=== PATIENT | male | born 1940 | race Caucasian/White ===

== ENCOUNTER 2019-07-23 13:09 | Outpatient (CLI) | payer MEDICARE, OTHER, SELFPAY ==
--- NOTE | 2019-07-23 13:20 | XR_ITS ---
WS: [id number] LATERAL LUMBAR SPINE: 3 view. Lateral radiographs are performed in upright neutral, flexion and extension to the patient's toleranc e. HISTORY: Spondylolisthesis. COMPARISON: 02/03/2019. Increase in lumbar lordosis. 2 to 3 mm retrolisthesis of L1-L4. During extension L3 moves posterior t o L4 by 4.5 mm. Otherwise the vertebral bodies are negative for instability. Patient has a known L1 compression fracture. Fracture has slightly progressed since 02/03/2019. Superi or inferior diameter of the anterior L1 vertebral body has decreased from 2.5 to 1.9 cm. No retropuls ion. Moderate atherosclerosis abdominal aorta. XR/XR lumbar spine f/e only [id number] IMPRESSION: 1. Increase in lumbar lordosis. 2. Mild extension instability at the L3 level. The retrolisthesis of L3 increa ses from 3 mm to 4.5 mm.
== END 2019-07-23 13:10 | disposition home or self-care (01) ==
LOC: WPI 13:14
PROVIDERS: Family Provider Physician Assistant; PCP Physician Assistant; Referring Provider Physician Assistant; Visit Provider Nurse Practitioner
DX: M43.17 Spondylolisthesis, lumbosacral region (principal); M53.2X6 Spinal instabilities, lumbar region; M40.46 Postural lordosis, lumbar region
CPT/HCPCS: 72120

== ENCOUNTER 2019-10-30 18:20 | Emergency (ER) | payer MEDICARE, OTHER, SELFPAY ==
[2019-10-30 18:29] VITALS: BP 172/66; PULSE 58; RESP 18; TEMP 36.1; O2SAT 99; BMI 25.8
--- NOTE | 2019-10-30 18:44 | CTR_ITS ---
PROCEDURE INFORMATION: Exam: CT Abdomen And Pelvis With Contrast Exam date and time: 10/30/2019 8:14 PM Age: 78 years old Clinical indication: Nausea and vomiting; Abdominal pain; Generalized; Additional info: Abd pain TECHNIQUE: Imaging protocol: Computed tomography of the abdomen and pelvis with intravenous contrast. Total DLP: 732.36 mGy-cm Radiation optimization: All CT scans at this facility use at least one of these dose optimization techniques: automated exposure control; mA and/or kV adjustment per patient size (includes targeted exams where dose is matched to clinical indication); or iterative reconstruction. Contrast material: OMNI 300; Contrast volume: 95 ml; Contrast route: 18G; COMPARISON: CT abdomen pelvis w con* [id number] 12/18/2017 2:40 PM FINDINGS: Lungs: There is calcified granuloma at the right lung base. Mediastinum: There is a small hiatal hernia. Liver: There is no focal abnormality within the liver. Gallbladder and bile ducts: Multiple calcified gallstones are present. Pancreas: The pancreas is normal. Spleen: There is a benign-appearing 3.8 cm sized cyst in the anterior aspect of the spleen. Adrenals: The adrenal glands are normal. Kidneys and ureters: There are several small benign-appearing cysts in the right kidney measuring up to 1 cm. There are some benign-appearing cysts cysts in the left kidney measuring up to 1.9 cm. There is no evidence of hydronephrosis. There is no evidence of renal or ureteral calcifications. Stomach and bowel: There is a left inguinal hernia containing only fatModerate diverticulosis is present in the distal colon. There is no evidence of colitis/diverticulitis. There is no evidence of intestinal obstruction. Appendix: A normal appendix is identified. Intraperitoneal space: Unremarkable. No free air. No significant fluid collection. Vasculature: The aorta demonstrates moderate atherosclerotic calcification. There is focal stenosis in the distal abdominal aorta with narrowing of the diameter by approximately 50%. There is no evidence of an abdominal aortic aneurysm. There is no evidence of dissection, leak, rupture, or other acute vascular pathology. Lymph nodes: Unremarkable. No enlarged lymph nodes. Bladder: Unremarkable as visualized. Reproductive: The prostate demonstrates moderate nonspecific enlargement. The seminal vesicles are normal. Bones/joints: There is 50% loss of height of the L1 vertebral body with what appears to be a chronic osteoporotic compression fracture of uncertain age. This is new compared with 12/18/2017. Soft tissues: Unremarkable. CT/CT abdomen pelvis w con* [id number] IMPRESSION: 1. Cholelithiasis 2. Atherosclerotic vascular disease 3. Splenic cyst and bilateral kidney cysts. 4. Small hiatus hernia. 5. Left inguinal hernia. 6. L1 compression fracture of uncertain age but probably old. 7. No acute finding COMMENTS: Consistent with the [employer]'s Incidental Findings Committee white paper (J Am Derek Radiol 2018): Any incidental cystic renal lesion classified in this report as too small to characterize or simple appearing is likely a benign cyst. No follow-up imaging is recommended for these lesions per consensus recommendations based on imaging criteria. Radiation Dose CTDIVOL = (mGy): DLP = 732.36 (mGy-cm)
--- NOTE | 2019-10-30 18:55 | W.ED.ABDPA2 ---
HPI - Abdominal Pain General: Chief Complaint: Abdominal Pain Stated Complaint: abd pain Time Seen by Provider: 10/30/19 18:43 History of Present Illness: MD elicited complaint: abdominal pain Pertinent past history: constipation Onset (ago): day(s) (3) Pain Consistency: constant Location: Diffuse Quality: cramping, aching and fullness Radiation: none Migration to: no migration Relieving factors: vomiting Associated Symptoms: Reports bloating, nausea and vomiting; Denies chills, diarrhea, dysuria, fever(s) and hematuria Review of Systems Const: Denies: fever or chills Eyes: Denies: change in vision or blurry vision ENMT: Denies: painful swallowing, swelling of lips/tongue or Change in hearing Card: Denies: chest pain, palpitations or edema Resp: Denies: shortness of breath, productive cough, non-productive cough or wheezing GI: Reports: nausea, vomiting and bloating; Denies: diarrhea : Denies: difficulty urinating, painful urination or blood in urine Musc: Denies: back pain, redness or joint warmth Skin/Breast: Denies: rash, itching or redness Neuro: Reports: headache; Denies: dizziness, vertigo or confusion Psych: Denies: anxiety PFSH ED PFSH: Social History Smoking and tobacco status: former smoker Physical Exam Const: GENERAL APPEARANCE: well developed ORIENTATION/CONSCIOUSNESS: Yes oriented to person, Yes oriented to place and Yes oriented to time HENMT: COMMON NORMALS: normocephalic, external ears normal and external nose normal HEAD & SCALP: normocephalic; no scalp tenderness FACE & SINUS: normal facial exam NOSE: external nose normal and no nasal discharge EXTERNAL EAR: Yes external ears normal Eye: COMMON NORMALS: PERRL, EOMs intact bilaterally and conjunctivae normal EYELID: eyelids normal CONJUNCTIVA: Yes conjunctivae normal PUPIL: Yes PERRL Neck/C-Spine: GENERAL: No tracheal deviation Chest: COMMONS NORMALS: inspection of chest normal CHEST: No tenderness Resp: COMMON NORMALS: clear to auscultation bilaterally EFFORT & INSPECTION: No tachypneic, No respiratory distress, No retractions, No uses accessory muscles and No tracheal deviation AUSCULTATION: clear to auscultation bilaterally, no rhonchi, no wheezes and lung sounds not diminished Cardio: COMMON NORMALS: regular rate and regular rhythm RATE: regular rate RHYTHM: regular rhythm HEART SOUNDS: no murmurs PERIPHERAL PULSES: radial pulses present GI: INSPECTION: Yes abdominal distension AUSCULTATION: No hyperactive bowel sounds and Yes hypoactive bowel sounds PALPATION: Yes tender (epigastric), No guarding and No rigid PERCUSSION: no dullness to percussion and no tympanic to percussion : COMMON NORMALS: Yes no CVA tenderness BLADDER/KIDNEY EXAM: Yes no CVA tenderness Back/Pelvis: COMMON NORMALS: no CVA tenderness Neuro: SENSORIUM/ORIENTATION: Yes oriented to person, Yes oriented to place and Yes oriented to time Psych: COMMON NORMALS: mental status grossly normal Skin: COMMON NORMALS: no rashes or lesions noted GENERAL SKIN EXAM: no rashes or lesions noted Course ED course: 78-year-old male sent over from urgent care because of concern for possible bowel obstruction. He has had generalized belly pain for 3 days. Seems to be intermittent. Laboratory is benign. Urinalysis is negative, save some hematuria. His abdominal CT shows cholelithiasis without cholecystitis. There is no diverticulitis, bowel obstruction, other acute finding. He will be allowed home with a bowel prep, nausea medication, and a PPI. Vital Signs: Vital signs: Vital Signs Temperature 96.9 F L 10/30/19 18:29 Pulse Rate 64 10/30/19 21:40 Respiratory Rate 16 10/30/19 21:40 Blood Pressure 185/82 10/30/19 21:40 Pulse Oximetry 97 10/30/19 21:40 MDM - Abdominal Pain Lab Data: Labs: Lab Results 10/30/19 10/30/19 10/30/19 Range/Units 18:55 18:55 19:35 WBC 7.1 (4.0-10.0) 10^3/ uL RBC 3.98 L (4.1-5.3) 10^6/u L Hgb 12.5 (11.7-16.6) g/dL Hct 39.2 L (42.0-52.0) % MCV 98.5 H (80-94) fL MCH 31.4 (28.0-34.0) pg MCHC 31.9 (30.0-36.0) g/dL RDW 14.5 (12.1-15.1) % Plt Count 207 (130-400) 10^3/c mm MPV 10.2 (7.4-10.4) fL Neut % (Auto) 70.7 % Lymph % (Auto) 18.7 % [place] % (Auto) 9.4 % Eos % (Auto) 0.8 % Baso % (Auto) 0.3 % Neut # (Auto) 5.0 (1.8-7.7) 10^3/u L Lymph # (Auto) 1.3 (0.8-4.8) 10^3/u L [place] # (Auto) 0.7 (0.2-0.9) 10^3/u L Eos # (Auto) 0.1 (0.0-0.8) 10^3/u L Baso # (Auto) 0.0 (0.0-0.1) 10^3/u L Nucleated RBC % (a uto) 0 % Nucleated RBCs # 0.0 /100WBC Sodium 138 (136-145) mmol/L Potassium 4.2 (3.5-5.1) mmol/L Chloride 101 (98-107) mmol/L Carbon Dioxide 26 (22-29) mmol/L Anion Gap 15.2 (5-19) BUN 11 (8-23) mg/dL Creatinine 1.0 (0.7-1.2) mg/dL Glucose 136 H (65-115) mg/dL Calculated Osmolal ity 284 L (285-295) mOsm/k g Calcium 9.6 (8.5-10.5) mg/dL Total Bilirubin 0.5 (0.15-1.2) mg/dL AST 15 (0-40) U/L ALT 13 (0-41) U/L Alkaline Phosphata se 57 (40-130) IU/L C-Reactive Protein 19.1 H (0.0-4.9) mg/L Total Protein 7.0 (6.6-8.7) g/dL Albumin 4.2 (3.5-5.2) g/dL Globulin 2.8 (1.3-4.6) g/dL Lipase 16 (13-60) U/L Urine Color Yellow (Yellow) Urine Appearance Clear (CLEAR) Urine pH 5 (5-7) Ur Specific Gravit y 1.020 (1.005-1.030) Urine Protein 1+ H (Negative) Urine Glucose (UA) Norm (Normal) Urine Ketones Negative (Negative) Urine Blood 2+ H (Negative) Urine Nitrate Negative (Negative) Urine Bilirubin Neg (NEGATIVE) Urine Urobilinogen Norm (Negative) mg/dL Ur Leukocyte Leny ase Negative (Negative) Urine RBC 5-10 H (0-2) /hpf Urine WBC None (0-5) /hpf Ur Squamous Epith Cells None (0-5) Urine Bacteria 1+ H (NONE) Discharge Plan Discharge Patient Disposition: Home, Self-Care Clinical Impression: Abdominal pain Qualifiers: Abdominal location: generalized Qualified Code(s): R10.84 - Generalized abdominal pain Constipation Qualifiers: Constipation type: unspecified constipation type Qualified Code(s): K59.00 - Constipation, unspecified Condition: Stable Prescriptions: New Prevacid 30 mg capsule,delayed release(DR/EC) 30 mg PO DAILY 28 Days Qty: 30 RF: 0 Zofran 4 mg tablet 4 mg PO Q6H PRN (Reason: nausea and vomiting) Qty: 10 RF: 0 No Action fenofibrate nanocrystallized 48 mg tablet 48 mg PO DAILY Qty: 90 RF: 3 clopidogrel 75 mg tablet 75 mg PO DAILY Qty: 90 RF: 3 Discharge Orders: Discharge Order (Routine); Ordered 10/30/19 Ordered By: Phill Sullivan Referrals: Naima Logan PA [Primary Care Provider] - 4-7 days Discharge Diet: Advance as tolerated Discharge Activity: Increase activity as tolerated Patient Instructions: Cholecystitis (ED), Abdominal Pain (ED) Activity Restrictions/Additional Instructions: Return for fever greater than 100, vomiting liquids or medications, worsening pain despite treatment, other concerning symptoms. Discharge Date/Time: 10/30/19 21:41 Coding Level of Care Code ED Cheese Pancake Roller for Chg Fwd Exam Comprehensive
--- NOTE | 2019-10-30 19:09 | PC.NURSE ---
Report given to PABLO Rivera.
[2019-10-30] MEDS: sodium chloride 0.9% 1,000 ML 999 ML IV (19:12)
[2019-10-30 19:15] LABS: Basophils % 0.3 %; Eosinophils # 0.1 10^3/uL (0.0-0.8); Eosinophils % 0.8 %; Hematocrit 39.2 % (42.0-52.0); Hemoglobin 12.5 g/dL (11.7-16.6); Lymphocytes # 1.3 10^3/uL (0.8-4.8); Lymphocytes % 18.7 %; Mean Corpuscular HGB Conc 31.9 g/dL (30.0-36.0); Mean Corpuscular Hemoglobin 31.4 pg (28.0-34.0); Mean Corpuscular Volume 98.5 fL (80-94); Mean Platelet Volume 10.2 fL (7.4-10.4); Monocytes # 0.7 10^3/uL (0.2-0.9); Monocytes % 9.4 %; Neutrophils % 70.7 %; Nucleated Red Blood Cells % 0 %; Platelet Count 207 10^3/cmm (130-400); Red Blood Count 3.98 10^6/uL (4.1-5.3); Red Cell Distribution Width 14.5 % (12.1-15.1); White Blood Count 7.1 10^3/uL (4.0-10.0)
[2019-10-30 19:48] LABS: Add Urine Microscopic? YES; Bilirubin Urine Neg (NEGATIVE); Blood Urine 2+ (Negative); Glucose Urine UA Norm (Normal); Ketones Urine Negative (Negative); Leukocyte Esterase Urine Negative (Negative); Nitrate Urine Negative (Negative); Protein Urine 1+ (Negative); Urine Appearance Clear (CLEAR); Urine Color Yellow (Yellow); Urobilinogen Urine Norm (Negative); pH Urine 5 (5-7)
[2019-10-30 19:59] LABS: Alanine Aminotransferase 13 U/L (0-41); Albumin Level 4.2 g/dL (3.5-5.2); Alkaline Phosphatase 57 IU/L (40-130); Anion Gap 15.2 (5-19); Blood Urea Nitrogen 11 mg/dL (8-23); C Reactive Protein 19.1 mg/L (0.0-4.9); Calcium 9.6 mg/dL (8.5-10.5); Carbon Dioxide 26 mmol/L (22-29); Chloride 101 mmol/L (98-107); Globulin 2.8 g/dL (1.3-4.6); Glucose 136 mg/dL (65-115); Lipase 16 U/L (13-60); Osmolality Calculated 284 mOsm/kg (285-295); Potassium 4.2 mmol/L (3.5-5.1); Sodium 138 mmol/L (136-145); Total Bilirubin 0.5 mg/dL (0.15-1.2)
[2019-10-30 20:03] LABS: Add Urine Culture? No; Bacteria Urine 1+
[2019-10-30 20:25] LABS: Aspartate Amino Transferase 15 U/L (0-40)
[2019-10-30] MEDS: iohexol 300 mg/mL 100 mL Btl IV (20:39)
[2019-10-30 21:17] VITALS: BP 172/74; PULSE 68; RESP 16; O2SAT 97
[2019-10-30] MEDS: magnesium hydroxide 30 mL UDC PO (21:28)
[2019-10-30] MEDS: mineral oil 30 mL UDC 15 ML PO (21:28)
[2019-10-30] MEDS: lactulose oral liq 20 gm/30 mL UDC PO (21:28)
[2019-10-30 21:40] VITALS: BP 185/82; PULSE 64; RESP 16; O2SAT 97
== END 2019-10-30 21:41 | disposition home or self-care (01) ==
PROVIDERS: Emergency Provider Emergency Medicine; Family Provider Physician Assistant; PCP Physician Assistant
DX: R10.84 Generalized abdominal pain (principal); K59.00 Constipation, unspecified; Z87.891 Personal history of nicotine dependence
CPT/HCPCS: 12345; 74177; 80053; 81001; 83690; 85025; 86140; 96360; 96361; 99283; A9270; J7030; Q9967

== ENCOUNTER 2019-11-20 09:07 | Outpatient (CLI) | payer MEDICARE, OTHER, SELFPAY ==
--- NOTE | 2019-11-20 | MR_ITS ---
WS: [id number] MRI LUMBAR SPINE NONCONTRAST TECHNIQUE: Sagittal T1, T2 and STIR imaging. Axial T1 and T2 imaging. CLINICAL INFORMATION: WEDGE COMPRESSION, FX OF LUMBAR DISK, INITIAL ENCOUNTER COMPARISON: MRI July 01, 2019 FINDINGS: Mild lumbar curve. No acute compression. Chronic appearing anterior wedging at L1 is unchanged since . Loss of approximately 50% vertebral body height is stable. No retropulsion. Stable grade 1 anterolisthesis L5 on S1. L1-L2: Normal. L2-L3: Mild annular bulging. Slight effacement of ventral thecal sac. Mild facet arthropathy. Foramen are patent. L3-L4: Mild annular bulging. Slight narrowing of the subarticular recess bilaterally. Mild facet arth ropathy. Spinal canal is patent. Tiny right foraminal protrusion with mild right foraminal narrowing. Left foramen is patent. L4-L5: Mild disc bulging with osteophytic ridging. Moderate central canal stenosis. Impingement on th e traversing L5 nerve roots bilaterally. Moderate facet arthropathy. Mild to moderate right and no si gnificant left foraminal narrowing. L5-S1: Grade 1 anterolisthesis. Mild disc bulging with slight effacement of ventral thecal sac. Impin gement traversing right S1 nerve root. Mild right greater than left foraminal narrowing. Moderate fac et arthropathy. Mild edema in the L4-L5 and L5-S1 facets likely degenerative MR/MR lumbar spine wo con* [id number] IMPRESSION: 1. Mild lumbar curve. Stable compression of the L1 vertebral body with anterio r wedging is unchanged. 2. Moderate central canal stenosis L4-5 due to disc bulging with facet arthrop athy and ligament flavum hypertrophy. Impingement on the traversing L5 nerve ro ots right greater than left. 3. Mild to moderate right L4-5 foraminal narrowing. 4. Tiny right foraminal protrusion L3-4 with mild right foraminal narrowing. 5. Grade 1 anterolisthesis L5 on S1 is stable with impingement on the traversi ng right greater than left S1 nerve roots. Moderate facet arthropathy. 6. No significant interval changes since 2019.
== END 2019-11-20 09:08 | disposition home or self-care (01) ==
LOC: RADWPI 09:13
PROVIDERS: Family Provider Physician Assistant; PCP Physician Assistant; Visit Provider Anesthesiology Pain Medicine
DX: S32.010A Wedge compression fracture of first lumbar vertebra, initial encounter for closed fracture (principal); X58.XXXA Exposure to other specified factors, initial encounter; M48.061 Spinal stenosis, lumbar region without neurogenic claudication; M47.816 Spondylosis without myelopathy or radiculopathy, lumbar region; M51.26 Other intervertebral disc displacement, lumbar region
CPT/HCPCS: 72148

== ENCOUNTER → 2019-12-31 09:34 | Outpatient (BNVA) | payer MEDICARE, OTHER, SELFPAY | PROVIDERS: Family Provider Physician Assistant; PCP Physician Assistant; Visit Provider Urology | DX: R97.20 Elevated prostate specific antigen [PSA] (principal); N40.0 Benign prostatic hyperplasia without lower urinary tract symptoms | CPT/HCPCS: 81001; 84153 ==

== ENCOUNTER 2020-01-27 08:26 | Outpatient (CLI) | payer MEDICARE, OTHER, SELFPAY ==
--- NOTE | 2020-01-27 08:47 | MR_ITS ---
WS: [id number] MRI/MRCP OF THE ABDOMEN WITHOUT GADOLINIUM ENHANCEMENT TECHNIQUE: Thin and thick slab MRCP, Axial T2, Coronal MRCP, Axial Dual Echo, and Axial 2-D Fiesta imaging was obtained. Coronal 2-D Fiesta imaging. CLINICAL INFORMATION: ELEVATED LFT'S COMPARISON: CT abdomen pelvis October 30, 2019 FINDINGS: Cholelithiasis. No gallbladder wall thickening or pericholecystic fluid. Normal common bile duct. No evidence of choledocholithiasis. Common bile duct tapers normally to the pancreatic head. Normal visu alized pancreas and pancreatic head. Stable renal cysts. Stable splenic cyst. Small hiatal hernia. MR/MR MRCP [id number] Impression: 1. Liver is normal in appearance. No intrahepatic biliary ductal dilatation. 2. Gallbladder is contracted with extensive cholelithiasis. No gallbladder wal l thickening or pericholecystic fluid. 3. Fatty atrophy of the pancreas. 4. Common bile duct appears normal with normal tapering distally. No evidence of choledocholithiasis. 5. Stable bilateral renal cysts. No hydronephrosis. 6. Stable splenic cyst in the anterior spleen measuring 3.2 CCM. 7. Small esophageal hiatal hernia. 8. No abdominal lymphadenopathy.
== END 2020-01-27 08:27 | disposition home or self-care (01) ==
LOC: RADWPI 08:32
PROVIDERS: Family Provider Physician Assistant; PCP Physician Assistant; Visit Provider Physician Assistant
DX: R94.5 Abnormal results of liver function studies (principal); K44.9 Diaphragmatic hernia without obstruction or gangrene; D73.4 Cyst of spleen; Q61.02 Congenital multiple renal cysts; K86.89 Other specified diseases of pancreas
CPT/HCPCS: 74181

== ENCOUNTER 2020-06-23 12:35 | Outpatient (CLI) | payer MEDICARE, OTHER, SELFPAY ==
--- NOTE | 2020-06-23 12:45 | USCV_ITS ---
Ck Marcus Age: 79 Gender: M : 1940 Exam Date: 06/23/2020 12:52 Ordering Phys: Ronit Mortensen MD ([email or web address]) Technologist: Erin Glover Exam Location: [facility] [place] Indication: STENOSIS Risk Factors: Previous Vascular Surgery: Right Brachial BP: / Left Brachial BP: / Right Left Velocity (cm/s) Spectral Plaque Velocity (cm/s) Spectral Plaque Syst/Diast Broadening Syst/Diast Broadening 94.80/ 13.20 Prox CCA 92.60 / 14.30 71.70/ 16.50 Mid CCA 81.60 / 14.30 67.30/ 14.30 Distal CCA 87.10 / 13.20 110.30/22.10 Prox ICA 111.40/ 22.10 125.70/26.50 Mid ICA 102.50/ 22.10 129.00/32.00 Distal ICA 86.00 / 24.30 111.40 ECA 163.20 1.80 ICA/CCA 1.36 Antegrade Vertebral Antegrade 67.30/ 16.50 cm/s 45.10/ 8.50 cm/s Tri Subclavian FINDINGS Moderate heterogeneous plaques bilaterally at the bifurcation and proximal internal carotid artery Intimal thickening in the common carotid arteries bilaterally Antegrade flow in the vertebral arteries bilaterally CONCLUSIONS Moderate heterogeneous plaques bilaterally at the bifurcation and proximal internal carotid arteries suggestive of 16 to 49% stenosis, Intimal thickening in the common carotid arteries bilaterally. Compared to the study from 07/01/2019, there may not be a significant change Dr Ronit Mortensen MD [facility] (Electronically Signed) Final Date: 24 June 2020 19:45 S
== END 2020-06-23 12:36 | disposition home or self-care (01) ==
LOC: RAD 12:37
PROVIDERS: PCP Physician Assistant; Visit Provider Internal Medicine Cardiovascular Disease
DX: I65.23 Occlusion and stenosis of bilateral carotid arteries (principal)
CPT/HCPCS: 93880

== ENCOUNTER → 2020-06-29 14:43 | Outpatient (BNVA) | payer MEDICARE, OTHER, SELFPAY | PROVIDERS: PCP Physician Assistant; Visit Provider Urology | DX: N40.0 Benign prostatic hyperplasia without lower urinary tract symptoms (principal); R97.20 Elevated prostate specific antigen [PSA]; N52.1 Erectile dysfunction due to diseases classified elsewhere; I25.118 Atherosclerotic heart disease of native coronary artery with other forms of angina pectoris; Z80.42 Family history of malignant neoplasm of prostate | CPT/HCPCS: 81003; 84153 ==

== ENCOUNTER → 2020-11-29 14:41 | Outpatient (BNVA) | payer MEDICARE, OTHER, SELFPAY | PROVIDERS: PCP Physician Assistant; Visit Provider Internal Medicine Cardiovascular Disease | DX: I65.23 Occlusion and stenosis of bilateral carotid arteries (principal); R06.02 Shortness of breath; R25.2 Cramp and spasm; E78.5 Hyperlipidemia, unspecified | CPT/HCPCS: 80048; 83735 ==

== ENCOUNTER → 2021-01-26 13:27 | Outpatient (BNVA) | payer MEDICARE, OTHER, SELFPAY | PROVIDERS: PCP Physician Assistant; Visit Provider Internal Medicine Cardiovascular Disease | DX: E78.5 Hyperlipidemia, unspecified (principal) | CPT/HCPCS: 80061; 80076 ==

== ENCOUNTER 2021-04-18 14:44 | Outpatient (CLI) | payer OTHER, SELFPAY ==
--- NOTE | 2021-04-18 14:52 | US_ITS ---
WS: [id number] RENAL ULTRASOUND HISTORY: CKD [id number] COMPARISON: None available. TECHNIQUE: 2-D and color Doppler imaging of the kidney submitted. Right kidney: 11.1 cm x 6.0 cm x 5.1 cm. Normal echogenicity with no hydronephrosis or mass. Simple cyst superior pole measures 1.4 x 1.2 x 0. 9 cm. Left kidney: 10.9 cm x 5.3 cm x 4.3 cm. Normal echogenicity with no hydronephrosis or mass. Simple cyst mid LEFT kidney measures 1.3 x 1.5 x 1.9 cm. Aorta: Normal. Urinary Bladder: Moderately well distended urinary bladder. Prostate gland is enlarged encroaching in to the bladder. There is wall thickening along the posterior bladder where the prostate gland encroac hes. US/US renal BI* [id number] IMPRESSION: 1. Bilateral renal cysts. No obstruction or solid mass. 2. Prostate gland enlargement encroaching into the urinary bladder with mild w all thickening.
== END 2021-04-18 14:45 | disposition home or self-care (01) ==
LOC: US 14:47
PROVIDERS: PCP Physician Assistant; Visit Provider Registered Nurse
DX: N18.32 Chronic kidney disease, stage 3b (principal); Q61.02 Congenital multiple renal cysts; N40.0 Benign prostatic hyperplasia without lower urinary tract symptoms
CPT/HCPCS: 76770

== ENCOUNTER → 2021-05-25 16:10 | Outpatient (BNVA) | payer MEDICARE, OTHER, SELFPAY | PROVIDERS: PCP Physician Assistant; Visit Provider Internal Medicine Cardiovascular Disease | DX: I65.23 Occlusion and stenosis of bilateral carotid arteries (principal); R06.02 Shortness of breath; R25.2 Cramp and spasm; E78.5 Hyperlipidemia, unspecified; R60.9 Edema, unspecified | CPT/HCPCS: 80048 ==

== ENCOUNTER → 2021-06-28 14:24 | Outpatient (BNVA) | payer MEDICARE, OTHER, SELFPAY | PROVIDERS: PCP Physician Assistant; Visit Provider Urology | DX: R97.20 Elevated prostate specific antigen [PSA] (principal); N52.1 Erectile dysfunction due to diseases classified elsewhere | CPT/HCPCS: 81003; 84153 ==

== ENCOUNTER → 2021-07-31 09:00 | Outpatient (BNVA) | payer MEDICARE, OTHER, SELFPAY | PROVIDERS: PCP Physician Assistant; Visit Provider Internal Medicine Cardiovascular Disease | DX: E78.5 Hyperlipidemia, unspecified (principal); I10 Essential (primary) hypertension; I25.118 Atherosclerotic heart disease of native coronary artery with other forms of angina pectoris; R97.20 Elevated prostate specific antigen [PSA] | CPT/HCPCS: 80061; 80076 ==

== ENCOUNTER 2021-08-10 09:05 | Outpatient (CLI) | payer MEDICARE, OTHER, SELFPAY ==
[2021-08-10 09:36] LABS: Add Urine Microscopic? NO; Charge for UA Resulting for Rev
[2021-08-10 09:57] LABS: Alanine Aminotransferase 12 U/L (0-41); Albumin Level 4.3 g/dL (3.5-5.2); Alkaline Phosphatase 44 IU/L (40-130); Anion Gap 17.9 (5-19); Aspartate Amino Transferase 17 U/L (0-40); Blood Urea Nitrogen 37 mg/dL (8-23); Calcium 9.5 mg/dL (8.5-10.5); Carbon Dioxide 20 mmol/L (22-29); Chloride 106 mmol/L (98-107); Glucose 112 mg/dL (65-115); Osmolality Calculated 297 mOsm/kg (285-295); Potassium 4.9 mmol/L (3.5-5.1); Sodium 139 mmol/L (136-145); Total Bilirubin 0.3 mg/dL (0.15-1.2); Total Protein 6.3 g/dL (6.6-8.7)
[2021-08-10 10:11] LABS: Bilirubin Urine Neg (Negative); Blood Urine Neg (Negative); Glucose Urine UA Norm (Normal); Ketones Urine Negative (Negative); Leukocyte Esterase Urine Negative (Negative); Nitrate Urine Negative (Negative); Protein Urine Neg (Negative); Specific Gravity, Urine 1.005 (1.005-1.030); Urine Appearance Clear (CLEAR); Urine Color Straw (Yellow); Urobilinogen Urine Norm (Negative); pH Urine 5 (5-7)
== END 2021-08-10 09:06 | disposition home or self-care (01) ==
LOC: LAB 09:14
PROVIDERS: PCP Physician Assistant; Visit Provider Chiropractor
DX: E11.9 Type 2 diabetes mellitus without complications (principal)
CPT/HCPCS: 80053; 81003

== ENCOUNTER 2021-09-18 15:44 | Outpatient (CLI) | payer MEDICARE, OTHER, SELFPAY ==
[2021-09-18 16:42] LABS: Basophils % 0.5 %; Eosinophils # 0.1 10^3/uL (0.0-0.8); Eosinophils % 1.4 %; Hematocrit 37.3 % (42.0-52.0); Hemoglobin 12.1 g/dL (11.7-16.6); Lymphocytes # 1.2 10^3/uL (0.8-4.8); Lymphocytes % 20.7 %; Mean Corpuscular HGB Conc 32.4 g/dL (30.0-36.0); Mean Corpuscular Volume 101.6 fl (80-94); Mean Platelet Volume 10.7 fL (7.4-10.4); Monocytes # 0.5 10^3/uL (0.2-0.9); Monocytes % 8.5 %; Neutrophils # 3.81 10^3/uL (1.8-7.7); Neutrophils % 68.7 %; Nucleated Red Blood Cells % 0 %; Platelet Count 212 10^3/cmm (130-400); Red Blood Count 3.67 10^6/uL (4.1-5.3); White Blood Count 5.6 10^3/uL (4.0-10.0)
[2021-09-18 17:17] LABS: Creatinine Urine, Random 77 mg/dL (39-259); Microalbum Creatinine Ratio Ur 13 mg/dL (0-20); Microalbumin Random Urine 1 ug/dL (0-20)
[2021-09-18 17:18] LABS: Albumin Level 4.5 g/dL (3.5-5.2); Blood Urea Nitrogen 47 mg/dL (8-23); Calcium 9.7 mg/dL (8.5-10.5); Carbon Dioxide 23 mmol/L (22-29); Chloride 103 mmol/L (98-107); Glucose 101 mg/dL (65-115); Phosphorus 3.3 mg/dL (2.5-4.5); Sodium 137 mmol/L (136-145)
[2021-09-18 17:19] LABS: Calcium 9.7 mg/dL (8.5-10.5)
[2021-09-18 17:21] LABS: Parathyroid Hormone 26.4 pg/mL (15-65)
[2021-09-18 17:29] LABS: 25 Hydroxy Vitamin D 53 ng/mL (30-100)
== END 2021-09-18 15:45 | disposition home or self-care (01) ==
LOC: LAB 15:51
PROVIDERS: PCP Physician Assistant; Visit Provider Internal Medicine Nephrology
DX: N18.32 Chronic kidney disease, stage 3b (principal)
CPT/HCPCS: 80069; 82044; 82306; 82310; 83970; 85025

== ENCOUNTER → 2021-11-23 13:39 | Outpatient (BNVA) | payer MEDICARE, OTHER, SELFPAY | PROVIDERS: PCP Physician Assistant; Visit Provider Internal Medicine Cardiovascular Disease | DX: I25.118 Atherosclerotic heart disease of native coronary artery with other forms of angina pectoris (principal); I10 Essential (primary) hypertension; R60.9 Edema, unspecified; I65.23 Occlusion and stenosis of bilateral carotid arteries; E78.5 Hyperlipidemia, unspecified; Z87.891 Personal history of nicotine dependence | CPT/HCPCS: 99214 ==

== ENCOUNTER → 2021-12-20 14:07 | Outpatient (BNVA) | payer MEDICARE, OTHER, SELFPAY | PROVIDERS: PCP Physician Assistant; Visit Provider Internal Medicine Cardiovascular Disease | DX: I25.118 Atherosclerotic heart disease of native coronary artery with other forms of angina pectoris (principal); R53.83 Other fatigue; I65.23 Occlusion and stenosis of bilateral carotid arteries; E78.5 Hyperlipidemia, unspecified; I10 Essential (primary) hypertension; Z87.891 Personal history of nicotine dependence | CPT/HCPCS: 99214 ==

== ENCOUNTER 2021-12-25 14:23 | Outpatient (CLI) | payer MEDICARE, OTHER, SELFPAY ==
[2021-12-25 15:51] LABS: Anion Gap 16.5 (5-19); Blood Urea Nitrogen 30 mg/dL (8-23); Calcium 8.8 mg/dL (8.5-10.5); Carbon Dioxide 22 mmol/L (22-29); Chloride 102 mmol/L (98-107); Glucose 100 mg/dL (65-115); NT Pro B Type Natriuretic Pept 2556 pg/mL (0-450); Osmolality Calculated 288 mOsm/kg (285-295); Potassium 4.5 mmol/L (3.5-5.1); Sodium 136 mmol/L (136-145)
== END 2021-12-25 14:24 | disposition home or self-care (01) ==
LOC: LAB 14:29
PROVIDERS: PCP Physician Assistant; Visit Provider Internal Medicine Cardiovascular Disease
DX: R06.02 Shortness of breath (principal); R53.83 Other fatigue; I50.33 Acute on chronic diastolic (congestive) heart failure
CPT/HCPCS: 80048; 83880

== ENCOUNTER 2022-02-15 08:00 | Outpatient (CLI) | payer MEDICARE, OTHER, SELFPAY ==
[2022-02-15 08:41] VITALS: BMI 24.7
--- NOTE | 2022-02-15 08:46 | ECG_ITS ---
[facility] Test Date: 2022-02-15 Pat Name: Ck Marcus Department: Room: Gender: Male Sheet Manager: : 1940 Requested By: Ronit Mortensen Order Number: [id number] Humberto MD: Ronit Mortensen M.D. Interpretive Statements NAME OF STUDY: LEXISCAN SESTAMIBI STRESS TEST INDICATION: Chest Pressure, PROCEDURE: At the baseline, the EKG revealed sinus bradycardia with a rate of 57 bpm. Incomplete right bundle branch block pattern. Nonspecific T wave changes.. The baseline blood pressure was 148/58 mm Hg with a heart rate of 57 beats/min. Lexiscan was infused over a period of 20 seconds. A total of 0.4 milligrams of Lexiscan was infused. The stress phase was continued for a total of 5 minutes. Heart rate at the end of the stress phase was 79 with a blood pressure 127/47. The EKG at the peak infusion revealed no significant changes. Sestamibi was injected 20 seconds after the Lexiscan infusion. Blood pressure at the end of the recovery phase was 125/51 with a heart rate of 62 per minute. CONCLUSION: 1. No significant EKG changes with the LexiScan infusion 2. No LexiScan induced chest pain or cardiac arrhythmia 3. Normal blood pressure and heart rate response 4. Sestamibi/sestamibi perfusion scan pending; see separate report. Electronically Signed On 02-17-2022 20:01:58 CDT by Ronit Mortensen M.D. [id number]
--- NOTE | 2022-02-15 08:47 | NMCV_ITS ---
NM rose marie perf SPECT r/s* [id number] Ck Marcus Age: 81 Gender: M : 1940 Exam Date: 02/15/2022 09:06 Ordering Phys: Ronit Mortensen MD ([email or web address]) Technologist: SANDEE Lamb Exam Location: [facility] Indications: Chest pain STRESS TEST Please see separate stress test report in [facility] for full findings IMAGE PROTOCOL Rest/Stress 1 Lexiscan Day Radiopharmaceutical Dose (mCi) Administration Site Administered by Rest: Tc-99m 10.7 IV SANDEE Jay Sestamibi Stress:Tc-99m 32.7 IV SANDEE Lamb Sestamibi Rest: 15-Feb-2022 60 Discovery 630 Stress: 15-Feb-2022 30 Discovery 630 0.4mg Lexiscan. Images obtained in supine and prone position. SPECT RESULTS Technical Quality: Excellent Raw Data Analysis: Normal Image Corrections: No attenuation or motion correction applied Summed Stress Score: 13 Summed Rest Score: 9 Summed Difference Score: 4 PERFUSION FINDINGS Moderate to large area of moderately decreased tracer uptake in the basal and mid anterolateral, mid inferolateral; basal, mid and apical inferior and apical lateral segments. Some reversibility was noted in the anterolateral and apical segments. FUNCTIONAL RESULTS (calculated via Gated SPECT) Stress Image LV EF (%): 63 Stress EDV (mL):103 TID: 0.9 Stress ESV (mL):38 FUNCTIONAL FINDINGS: Segmental wall motion analysis revealed mild diffuse hypokinesia of the septal segments IMPRESSIONS 1. Myocardial perfusion imaging revealing moderate to large areas of decreased tracer uptake in the anterolateral, inferior and apical segments with a significant reversibility suggesting myocardial scarring in the distribution of the left circumflex artery and right coronary artery with a significant ischemia mostly in the circumflex territory. 2. Normal LV ejection fraction of 63%. 3. Wall motion normalities as mentioned above. 4. Normal LV volume. No similar previous studies are available for comparison Dr Ronit Mortensen MD [facility] (Electronically Signed) Final Date: 16 February 2022 09:38 S
[2022-02-15] MEDS: regadenoson 0.4 Mg/5 ml Syringe IVP (09:45)
[2022-02-15] MEDS: aminophylline 25 mg/mL SDV 10 mL IVP (10:02)
[2022-02-15 10:07] VITALS: BP 125/51; PULSE 65
== END 2022-02-15 08:01 | disposition home or self-care (01) ==
LOC: CDL 08:04
PROVIDERS: PCP Physician Assistant; Visit Provider Internal Medicine Cardiovascular Disease
DX: R07.9 Chest pain, unspecified (principal)
CPT/HCPCS: 78452; 93017; A9500; J0280; J2785

== ENCOUNTER 2022-02-22 08:19 | Outpatient (CLI) | payer MEDICARE, OTHER, SELFPAY ==
--- NOTE | 2022-02-22 08:30 | USCV_ITS ---
Ck Marcus Age: 81 Gender: M : 1940 Exam Date: 02/22/2022 08:45 Ordering Phys: Ronit Mortensen MD ([email or web address]) Technologist: NINFA Exam Location: [facility] [place] Indication: chest tightness. STEEL BP: 138 / 61 HR: 53 Rhythm: Sinus Technical Quality: adequate MEASUREMENTS (Male / Female) Normal Values 2D ECHO LV Diastolic Diameter PLAX 5.1 cm 4.2 - 5.9 / 3.9 - 5.3 cm LV Systolic Diameter PLAX 3.1 cm IVS Diastolic Thickness 1.0 cm 0.6 - 1.0 / 0.6 - 0.9 cm IVS Systolic Thickness 1.5 cm LVPW Diastolic Thickness 1.0 cm 0.6 - 1.0 / 0.6 - 0.9 cm LVPW Systolic Thickness 2.0 cm LVOT Diameter 2.0 cm LV Ejection Fraction 2D Teich 70.8 % LV Ejection Fraction MOD 2C 52.9 % LV Ejection Fraction 2C AL 53.7 % LA Diameter 5.1 cm RA Width 4.3 cm RA Height 5.7 cm Aorta at Sinotubular Diameter 2.1 cm M-MODE MV E Point Septal Separation 0.5 cm DOPPLER AV Peak Velocity 134.0 cm/s LVOT Peak Velocity 103.0 cm/s AV Area Cont Eq vti 2.5 cm squared AV Area Cont Eq pk 2.4 cm squared MV Area PHT 3.3 cm squared Mitral E to A Ratio 1.6 MV E' Velocity 58.0 cm/s Mitral E to MV E' Ratio 14.9 Mitral E to LV E' Lateral Ratio 12.9 Mitral E to LV E' Septal Ratio 17.6 TR Peak Velocity 276.0 cm/s TR Peak Gradient 30.5 mmHg Right Atrial Pressure 8.0 mmHg Pulmonary Artery Systolic Pressu 38.5 mmHg PV Peak Velocity 97.0 cm/s FINDINGS Left Ventricle Normal left ventricular size and systolic function, EF 64 %. Mild left ventricular hypertrophy. No regional wall motion abnormalities. Grade III/IV diastolic dysfunction (restrictive filling pattern), severely elevated filling pressures. Right Ventricle The right ventricle is normal in size and function. Right Atrium The right atrium is normal in size. Left Atrium Mildly increased left atrial size. Mitral Valve Trace to mild mitral valve regurgitation. Aortic Valve No gross abnormalities noted Tricuspid Valve [id number]-[id number] tricuspid valve regurgitation. Estimated pulmonary artery peak systolic pressure 39 mmHg Pulmonic Valve Pulmonic valve not well visualized. Pericardium Normal pericardium without effusion. Aorta Normal aortic annulus size. IVC Inferior vena cava not visualized. CONCLUSIONS Normal left ventricular size and systolic function, EF 64 %. Mild left ventricular hypertrophy. No regional wall motion abnormalities. Grade III/IV diastolic dysfunction (restrictive filling pattern), severely elevated filling pressures. Mildly increased left atrial size. Trace to mild mitral valve regurgitation. [id number] tricuspid valve regurgitation. Estimated pulmonary artery peak systolic pressure 39 mmHg. There is no pericardial effusion. No similar previous studies are available for comparison Dr Ronit Mortensen MD [facility] (Electronically Signed) Final Date: 22 February 2022 13:39 S
== END 2022-02-22 08:20 | disposition home or self-care (01) ==
LOC: RAD 08:21
PROVIDERS: PCP Physician Assistant; Visit Provider Internal Medicine Cardiovascular Disease
DX: R06.00 Dyspnea, unspecified (principal); R53.83 Other fatigue; I08.1 Rheumatic disorders of both mitral and tricuspid valves
CPT/HCPCS: 93306

== ENCOUNTER → 2022-02-26 15:23 | Outpatient (BNVA) | payer MEDICARE, OTHER, SELFPAY | PROVIDERS: PCP Physician Assistant; Referring Provider Podiatrist Foot & Ankle Surgery; Visit Provider Podiatrist Foot & Ankle Surgery | DX: R60.9 Edema, unspecified (principal); G62.9 Polyneuropathy, unspecified; L84 Corns and callosities; E11.9 Type 2 diabetes mellitus without complications; Z79.84 Long term (current) use of oral hypoglycemic drugs | CPT/HCPCS: 99203 ==

== ENCOUNTER → 2022-03-12 10:32 | Outpatient (BNVA) | payer MEDICARE, OTHER, SELFPAY | PROVIDERS: PCP Physician Assistant; Visit Provider Internal Medicine Cardiovascular Disease | DX: I25.118 Atherosclerotic heart disease of native coronary artery with other forms of angina pectoris (principal); I65.23 Occlusion and stenosis of bilateral carotid arteries; E78.5 Hyperlipidemia, unspecified; I10 Essential (primary) hypertension; E11.9 Type 2 diabetes mellitus without complications; Z79.84 Long term (current) use of oral hypoglycemic drugs; I73.9 Peripheral vascular disease, unspecified; R06.02 Shortness of breath; Z87.891 Personal history of nicotine dependence | CPT/HCPCS: 80053; 83880; 99214 ==

== ENCOUNTER 2022-04-30 13:19 | Outpatient (CLI) | payer MEDICARE, OTHER, SELFPAY ==
--- NOTE | 2022-04-30 13:45 | USCV_ITS ---
Ck Marcus Age: 81 Gender: M : 1940 Exam Date: 04/30/2022 13:30 Ordering Phys: Ronit Mortensen MD ([email or web address]) Technologist: DENNIS Exam Location: [facility] – [place] Indication: Risk Factors: Previous Vascular Surgery: Right Brachial BP: / Left Brachial BP: / Right Left Velocity (cm/s) Spectral Plaque Velocity (cm/s) Spectral Plaque Syst/Diast Broadening Syst/Diast Broadening 99.20/ 11.00 Prox CCA 126.20/ 14.50 114.70/14.30 Mid CCA 107.80/ 13.10 99.20/ 11.00 Hetro Distal CCA 77.60 / 9.20 Hetro 163.00/30.20 Hetro Prox ICA 122.60/ 20.10 Hetro 144.60/30.20 Hetro Mid ICA 109.10/ 23.70 Hetro 165.60/32.90 Hetro Distal ICA 85.40 / 19.70 Hetro 161.70 Hetro ECA 201.10 Hetro 1.44 ICA/CCA 0.97 Antegrade Vertebral Antegrade 92.00/ 18.40 cm/s 65.80/ 10.30 cm/s Tri Subclavian Tri 155.1 143.3 0 0 FINDINGS Mild to moderate dense plaques at the bifurcations and proximal internal carotid arteries bilaterally Antegrade flow in the vertebral arteries bilaterally Intimal thickening in the common carotid arteries bilaterally Elevated velocity in the left external carotid artery Near normal Doppler velocities in the vertebral and subclavian arteries bilaterally CONCLUSIONS Mild to moderate dense plaques at the bifurcations and proximal internal carotid arteries bilaterally with the Doppler features, suggesting less than 50% stenosis. Elevated velocity in the external carotid artery on the left side, suggestive of hemodynamically significant stenosis. Compared to the study from 06/23/2020, there seems to be some worsening of the stenosis in the left external carotid artery. Dr Ronit Mortensen MD [facility] (Electronically Signed) Final Date: 03 May 2022 08:28 S
--- NOTE | 2022-04-30 14:30 | USCV_ITS ---
Ck Marcus Age: 81 Gender: M : 1940 Exam Date: 04/30/2022 13:46 Ordering Phys: Ronit Mortensen MD ([email or web address]) Technologist: DENNIS Exam Location: [facility] [place] Indication: Risk Factors: Previous Vascular Surgery: RIGHT LEFT BP: 113.0 / 39.00 BP: 122.0/ 45.00 0 0 Waveform Velocity (cm/s) Velocity (cm/s) Waveform Biphasic 230.1 Iliac Prox 227.9 Triphasic Biphasic 161.8 Iliac Mid 216.5 Biphasic Biphasic 134.4 Iliac Distal 214.2 Biphasic Biphasic 108.8 SHELL GRADER 170.9 Biphasic Biphasic 108.8 SFA Prox 104.3 Triphasic Biphasic 83.9 SFA Mid 131.3 Triphasic Biphasic 132.1 SFA Dist 99.4 Biphasic Biphasic 64.4 POP 85.4 Biphasic Biphasic 54.7 EMERGENCY MANAGEMENT DIRECTOR 115.0 Triphasic Biphasic 55.5 DPA 48.2 Triphasic LISETTE 1.1 0.8 FINDINGS LT PT 136 LT DP 110 RT PT 94 RT DP 104 Moderate heterogenous diffuse plaques of the right iliac, femoral and popliteal arteries Mild to moderate plaques at the left iliac and femoral arteries Resting LISETTE of 0.8 on the right and 1.1 on the left CONCLUSIONS 1. Moderate diffuse heterogenous plaques in the right iliac, femoral and popliteal artery with a diminished resting LISETTE of 0.8 suggesting mild to moderate peripheral arterial disease. 2. Mild to moderate diffuse plaque in the left iliac and femoral artery with a normal resting LISETTE suggesting no significant arterial obstruction Dr Ronit Mortensen MD [facility] (Electronically Signed) Final Date: 03 May 2022 08:34 S
== END 2022-04-30 13:20 | disposition home or self-care (01) ==
LOC: RAD 13:20
PROVIDERS: PCP Physician Assistant; Visit Provider Internal Medicine Cardiovascular Disease
DX: I77.9 Disorder of arteries and arterioles, unspecified (principal); I73.9 Peripheral vascular disease, unspecified; I65.23 Occlusion and stenosis of bilateral carotid arteries
CPT/HCPCS: 93880; 93925

== ENCOUNTER 2022-06-26 15:01 | Outpatient (CLI) | payer MEDICARE, OTHER, SELFPAY | END 2022-06-26 15:02 | disposition home or self-care (01) | LOC: LAB 15:05 | PROVIDERS: PCP Physician Assistant; Visit Provider Urology | DX: R97.20 Elevated prostate specific antigen [PSA] (principal) | CPT/HCPCS: 36415; 84153 ==

== ENCOUNTER → 2022-06-28 12:46 | Outpatient (BNVA) | payer MEDICARE, OTHER, SELFPAY | PROVIDERS: PCP Physician Assistant; Visit Provider Urology | DX: R97.20 Elevated prostate specific antigen [PSA] (principal); N52.1 Erectile dysfunction due to diseases classified elsewhere; E11.9 Type 2 diabetes mellitus without complications; I25.118 Atherosclerotic heart disease of native coronary artery with other forms of angina pectoris; Z80.42 Family history of malignant neoplasm of prostate; N40.1 Benign prostatic hyperplasia with lower urinary tract symptoms | CPT/HCPCS: 51741; 51798; 81003; 99213 ==

== ENCOUNTER → 2022-07-17 13:50 | Outpatient (BNVA) | payer MEDICARE, OTHER, SELFPAY | PROVIDERS: PCP Physician Assistant; Visit Provider Nurse Practitioner Family | DX: I25.118 Atherosclerotic heart disease of native coronary artery with other forms of angina pectoris (principal); I73.9 Peripheral vascular disease, unspecified; Z87.891 Personal history of nicotine dependence; I12.9 Hypertensive chronic kidney disease with stage 1 through stage 4 chronic kidney disease, or unspecified chronic kidney disease; E11.22 Type 2 diabetes mellitus with diabetic chronic kidney disease; N18.9 Chronic kidney disease, unspecified; Z79.84 Long term (current) use of oral hypoglycemic drugs | CPT/HCPCS: 99214 ==

== ENCOUNTER 2022-08-16 14:34 | Outpatient (CLI) | payer MEDICARE, OTHER, SELFPAY ==
[2022-08-16 15:41] LABS: Basophils % 0.2 %; Eosinophils # 0.1 10^3/uL (0.0-0.8); Eosinophils % 2.2 %; Hematocrit 27.2 % (42.0-52.0); Hemoglobin 8.3 g/dL (11.7-16.6); Lymphocytes # 1.1 10^3/uL (0.8-4.8); Lymphocytes % 25.6 %; Mean Corpuscular HGB Conc 30.5 g/dL (30.0-36.0); Mean Corpuscular Hemoglobin 29.9 pg (28.0-34.0); Mean Corpuscular Volume 97.8 fl (80-94); Mean Platelet Volume 10.3 fL (7.4-10.4); Monocytes # 0.4 10^3/uL (0.2-0.9); Monocytes % 8.5 %; Neutrophils # 2.82 10^3/uL (1.8-7.7); Neutrophils % 63.3 %; Nucleated Red Blood Cells % 0 %; Platelet Count 201 10^3/cmm (130-400); Red Blood Count 2.78 10^6/uL (4.1-5.3); Red Cell Distribution Width 15.2 % (12.1-15.1); White Blood Count 4.5 10^3/uL (4.0-10.0)
[2022-08-16 16:08] LABS: INR 1.03 (0.83-1.21); Prothrombin Time (Patient) 13.8 Seconds (12.0-15.1)
[2022-08-16 16:11] LABS: Anion Gap 13.2 (5-19); Blood Urea Nitrogen 38 mg/dL (8-23); Calcium 8.7 mg/dL (8.5-10.5); Carbon Dioxide 25 mmol/L (22-29); Chloride 105 mmol/L (98-107); Glucose 107 mg/dL (65-115); Osmolality Calculated 298 mOsm/kg (285-295); Potassium 4.2 mmol/L (3.5-5.1); Sodium 139 mmol/L (136-145)
== END 2022-08-16 14:35 | disposition home or self-care (01) ==
LOC: LAB 14:49
PROVIDERS: PCP Physician Assistant; Visit Provider Nurse Practitioner Family
DX: I25.118 Atherosclerotic heart disease of native coronary artery with other forms of angina pectoris (principal); R60.9 Edema, unspecified; I10 Essential (primary) hypertension
CPT/HCPCS: 80048; 85025; 85610; 86850; 86900

== ENCOUNTER 2022-09-21 14:02 | Oncology outpatient (recurring) (ONCR) | payer OTHER, SELFPAY ==
[2022-09-21 14:50] LABS: Erythrocyte Sedimentation Rate 12 mm/hr (0-10)
[2022-09-21 14:51] LABS: Reticulocyte % 1.6 % (0.5-2.0)
[2022-09-21 15:05] LABS: C Reactive Protein 30.9 mg/L (0.0-4.9); Ferritin 54 ng/mL (30-400); Iron 38 ug/dL (59-158); Lactate Dehydrogenase 124 U/L (135-225); Percent Saturation 11.9 % (20-50); Total Iron Binding Capacity 318 mcg/dl; Unsaturated Iron Binding 280 ug/dL (112-347)
[2022-09-21 15:21] LABS: Vitamin B12 1281 pg/mL (232-1245)
[2022-09-21 15:53] LABS: Folate Level > 20.0 ng/mL (4.5-32.2)
[2022-09-22 07:46] LABS: PROTEIN, TOTAL 5.6 g/dL (6.1-8.1)
[2022-09-24 11:58] LABS: KAPPA LIGHT CHAIN, FREE, SERUM 67.7 mg/L (3.3-19.4); KAPPA/LAMBDA LIGHT CHAINS FREE 1.69 (0.26-1.65); LAMBDA LIGHT CHAIN, FREE, SERU 40.1 mg/L (5.7-26.3)
[2022-09-24 15:40] LABS: ALBUMIN 3.4 g/dL (3.8-4.8); ALPHA 1 GLOBULIN 0.3 g/dL (0.2-0.3); ALPHA 2 GLOBULIN 0.8 g/dL (0.5-0.9); BETA 1 GLOBULIN 0.4 g/dL (0.4-0.6); BETA 2 GLOBULIN 0.2 g/dL (0.2-0.5); GAMMA GLOBULIN 0.5 g/dL (0.8-1.7)
== END 2022-10-12 23:59 | disposition home or self-care (01) ==
PROVIDERS: PCP Physician Assistant; Visit Provider Internal Medicine Medical Oncology
DX: D64.9 Anemia, unspecified (principal); Z87.891 Personal history of nicotine dependence
CPT/HCPCS: 36415; 82607; 82728; 82746; 83010; 83540; 83550; 83615; 83883; 84155; 84165; 85045; 85651; 86140; 86334; 99204

== ENCOUNTER → 2022-09-24 14:38 | Outpatient (BNVA) | payer MEDICARE, OTHER, SELFPAY | PROVIDERS: PCP Physician Assistant; Visit Provider Podiatrist Foot & Ankle Surgery | DX: I73.9 Peripheral vascular disease, unspecified (principal); R60.9 Edema, unspecified; G62.9 Polyneuropathy, unspecified; L84 Corns and callosities; E11.21 Type 2 diabetes mellitus with diabetic nephropathy | CPT/HCPCS: 11056; 11721; 99214 ==

== ENCOUNTER 2022-09-29 18:01 | Emergency (ER) | payer MEDICARE, OTHER, SELFPAY ==
[2022-09-29 18:08] VITALS: BP 156/59; PULSE 57; RESP 14; TEMP 36.2; O2SAT 96; BMI 24.3
--- NOTE | 2022-09-29 20:43 | USR_ITS ---
PROCEDURE INFORMATION: Exam: US Abdomen, Limited; Right Upper Quadrant Exam date and time: 09/29/2022 9:18 PM Age: 81 years old Clinical indication: Abdominal pain; Generalized; Additional info: Ruq pain TECHNIQUE: Imaging protocol: Real time ultrasound of the abdomen with image documentation. Limited exam focused on the right upper quadrant. COMPARISON: US abdomen complete* [id number] 11/22/2017 10:48 AM FINDINGS: Liver: 14.8 cm liver. Gallbladder: Multiple gallstones within the gallbladder measuring up to 2.1 cm in maximum diameter. 2 mm gallbladder polyp. Normal 2 mm gallbladder wall. Sonographically negative Reese's sign suggesting no cholecystitis. Biliary ducts: 7.5 mm common bile duct which is within normal limits for the patient's age. Pancreas: Visualized pancreas is unremarkable. Right kidney: 10.1 x 6.0 x 6.0 cm right kidney with 1.3 cm right renal cortex. Portal venous: Patent portal vein. US/US gall bladder [id number] IMPRESSION: 1. Multiple gallstones within the gallbladder measuring up to 2.1 cm in maximum diameter. 2. 2 mm gallbladder polyp. 3. Sonographically negative Reese's sign suggesting no cholecystitis.
[2022-09-29 20:48] LABS: Basophils % 0.1 %; Eosinophils % 0.3 %; Hematocrit 33.4 % (42.0-52.0); Hemoglobin 10.2 g/dL (11.7-16.6); Lymphocytes # 0.7 10^3/uL (0.8-4.8); Lymphocytes % 10.4 %; Mean Corpuscular HGB Conc 30.5 g/dL (30.0-36.0); Mean Corpuscular Hemoglobin 29.9 pg (28.0-34.0); Mean Corpuscular Volume 97.9 fl (80-94); Mean Platelet Volume 9.9 fL (7.4-10.4); Monocytes # 0.4 10^3/uL (0.2-0.9); Monocytes % 6.3 %; Neutrophils # 5.63 10^3/uL (1.8-7.7); Neutrophils % 82.6 %; Nucleated Red Blood Cells % 0 %; Platelet Count 245 10^3/cmm (130-400); Red Blood Count 3.41 10^6/uL (4.1-5.3); Red Cell Distribution Width 16.4 % (12.1-15.1); White Blood Count 6.8 10^3/uL (4.0-10.0)
[2022-09-29 21:04] LABS: Alanine Aminotransferase 151 U/L (0-41); Alkaline Phosphatase 168 U/L (40-130); Anion Gap 19.2 (5-19); Aspartate Amino Transferase 358 U/L (0-40); Blood Urea Nitrogen 47 mg/dL (8-23); Calcium 9.2 mg/dL (8.5-10.5); Carbon Dioxide 24 mmol/L (22-29); Chloride 99 mmol/L (98-107); Globulin 2.4 g/dL (1.3-4.6); Glucose 133 mg/dL (65-115); Lipase 42 U/L (13-60); Osmolality Calculated 300 mOsm/kg (285-295); Potassium 4.2 mmol/L (3.5-5.1); Sodium 138 mmol/L (136-145); Total Bilirubin 1.4 mg/dL (0.15-1.2); Total Protein 6.4 g/dL (6.6-8.7)
[2022-09-29 21:09] VITALS: RESP 18; O2SAT 100
[2022-09-29] MEDS: morphine 4 mg/mL SDV 1 mL IVP (21:09)
[2022-09-29] MEDS: sodium chloride 0.9% 500 ML 999 ML IV (21:10)
[2022-09-29] MEDS: ondansetron 2 mg/ML SDV 2 mL 4 MG IVP (21:10)
[2022-09-29 21:54] LABS: Urine Appearance Clear (CLEAR); Urine Color Yellow (Yellow); pH Urine 5 (5-7)
[2022-09-29 21:55] LABS: Add Urine Culture? No; Add Urine Microscopic? YES; Bacteria Urine TRACE /hpf; Bilirubin Urine Neg (Negative); Blood Urine Neg (Negative); Glucose Urine UA 4+ (Normal); Ketones Urine Negative (Negative); Leukocyte Esterase Urine Negative (Negative); Nitrate Urine Negative (Negative); Protein Urine Trace (Negative); RBC Urine 0-4 /hpf (0-2); Squamous Epithelial Cell Urine 0-4 /hpf (0-5); Urobilinogen Urine Norm (Negative); WBC Urine 0-4 /hpf (0-5)
--- NOTE | 2022-09-29 21:59 | W.ED.ABDPA2 ---
HPI - Abdominal Pain General: Chief Complaint: Abdominal Pain Stated Complaint: abd pain Time Seen by Provider: 09/29/22 20:25 Source: family History of Present Illness: 81-year-old gentleman who says that he had right upper quadrant pain and was diagnosed with a gallbladder problem 10 days or so ago. It seemed to resolve. His pain returned this evening, and was much worse than normal. He vomited a couple of times at home. He has had episodes of pain on and off since his first episode. This was the worst. He denies fever. He is still having some significant pain. MD elicited complaint: abdominal pain Pertinent past history: myocardial infarction Onset (ago): hour(s) Pain Consistency: constant Location: RUQ Severity: moderate Quality: stabbing and aching Radiation: none Migration to: no migration Exacerbating factors: nothing Relieving factors: nothing Associated Symptoms: Reports anorexia, nausea and vomiting; Denies coffee ground emesis, fever(s) and hematochezia Review of Systems Const: Denies: fever(s) ENMT: Denies: throat pain Card: Denies: chest pain Resp: Denies: dyspnea or productive cough GI: Reports: nausea and vomiting; Denies: coffee ground emesis or hematochezia PFSH ED PFSH: Medical History Atherosclerotic heart disease of [place] coronary artery with other forms of angina pectoris Benign essential HTN Bilateral carotid artery stenosis BPH loc w urin obs/LUTS CAD (coronary artery disease) Chronic kidney disease Diabetes Dyslipidemia (high LDL; low HDL) Elevated PSA Hyperlipidemia Hypertension Surgical History H/O adenoidectomy H/O heart bypass surgery History of common carotid artery stent placement Hx of cataract extraction Hx of tonsillectomy S/P right rotator cuff repair Family History Father , at age 83 Cancer prostate Mother , at age 93 Dementia Brother Cancer Other Hyperlipidemia Denies family history of Diabetes CAD (coronary artery disease) Clotting disorder Chronic kidney disease (CKD) Suicide Anesthesia complication Bleeding disorder Lung disease Stroke Social History Smoking and tobacco status: former smoker Alcohol intake: never Adopted: No Caregiver/support person: No Lives independently: No Household members: spouse Marital status: Current occupational status: retired Physical Exam Const: COMMON NORMALS: no acute distress GENERAL APPEARANCE: cooperative and frail appearing (mildly) HENMT: COMMON NORMALS: normocephalic and Normal external nose present HEAD & SCALP: normocephalic FACE & SINUS: normal facial exam NOSE: Normal external nose present THROAT: posterior oropharynx normal Eye: COMMON NORMALS: Equal, round and reactive pupils present and EOMs intact bilaterally PUPIL: Yes Equal, round and reactive pupils present Chest: COMMONS NORMALS: normal inspection of the chest Resp: COMMON NORMALS: normal respiratory effort, No use of accessory muscles and clear to auscultation bilaterally AUSCULTATION: clear to auscultation bilaterally Cardio: COMMON NORMALS: regular rate and regular rhythm RATE: regular rate RHYTHM: regular rhythm GI: COMMON NORMALS: Normal to inspection, nondistended, normoactive bowel sounds present PALPATION: Yes Tenderness to palpation present (GI) Details: RUQ Extremity: COMMON NORMALS: normal to inspection Neuro: ABHI COMA SCALE: document GCS findings Abhi coma scale eye opening: Spontaneous Abhi coma scale verbal response: Orientated [place] coma scale motor response: Obey commands Abhi coma scale total score: 15 Psych: COMMON NORMALS: mental status grossly normal and cooperative Skin: OTHER: pallor Course Vital Signs: Vital signs: Vital Signs Temperature 97.1 F L 09/29/22 18:08 Pulse Rate 57 L 09/29/22 18:08 Respiratory Rate 18 09/29/22 21:09 Blood Pressure 156/59 09/29/22 18:08 Pulse Oximetry 100 09/29/22 21:09 Oxygen Delivery Me thod 09/29/22 18:08 MDM - Abdominal Pain Medical Decision Making 81-year-old gentleman with right upper quadrant pain. He is not jaundiced. He is afebrile. Liver enzymes are mildly elevated, with a total bilirubin of 1.4. However, bile ducts are normal in caliber. He has gallstones on ultrasound, but no wall thickening or pericholecystic fluid. He is likely ball valving a stone. His pain is much improved. He has not vomited here. His renal function is a bit above his baseline, but he was hydrated for this with improvement in his symptoms, lack of biliary dilatation, believe it is safe to send him home. He is given hydrocodone and Zofran as needed for pain and nausea. He is told to follow a bland diet. Case management has been contacted to obtain an outpatient surgery appointment for the patient regarding possible need for cholecystectomy. Lab Data 09/29/22 20:42 09/29/22 20:42 Labs/Radiology: Radiology Impressions Gallbladder Ultrasound 09/29/22 20:43 IMPRESSION: 1. Multiple gallstones within the gallbladder measuring up to 2.1 cm in maximum diameter. 2. 2 mm gallbladder polyp. 3. Sonographically negative Reese's sign suggesting no cholecystitis. Laboratory Results WBC 6.8 10^3/uL (4.0-10.0) 09/29/22 20:42 RBC 3.41 10^6/uL (4.1-5.3) L 09/29/22 20:42 Hgb 10.2 g/dL (11.7-16.6) L 09/29/22 20:42 Hct 33.4 % (42.0-52.0) L 09/29/22 20:42 MCV 97.9 fl (80-94) H 09/29/22 20:42 MCH 29.9 pg (28.0-34.0) 09/29/22 20:42 MCHC 30.5 g/dL (30.0-36.0) 09/29/22 20:42 RDW 16.4 % (12.1-15.1) H 09/29/22 20:42 Plt Count 245 10^3/cmm (130-400) 09/29/22 20:42 MPV 9.9 fL (7.4-10.4) 09/29/22 20:42 Neut % (Auto) 82.6 % 09/29/22 20:42 Lymph % (Auto) 10.4 % 09/29/22 20:42 [place] % (Auto) 6.3 % 09/29/22 20:42 Eos % (Auto) 0.3 % 09/29/22 20:42 Baso % (Auto) 0.1 % 09/29/22 20:42 Neut # (Auto) 5.63 10^3/uL (1.8-7.7) 09/29/22 20:42 Lymph # (Auto) 0.7 10^3/uL (0.8-4.8) L 09/29/22 20:42 [place] # (Auto) 0.4 10^3/uL (0.2-0.9) 09/29/22 20:42 Eos # (Auto) 0.0 10^3/uL (0.0-0.8) 09/29/22 20:42 Baso # (Auto) 0.0 10^3/uL (0.0-0.1) 09/29/22 20:42 Nucleated RBC % (auto) 0 % 09/29/22 20:42 Nucleated RBCs # 0.0 /100WBC 09/29/22 20:42 Sodium 138 mmol/L (136-145) 09/29/22 20:42 Potassium 4.2 mmol/L (3.5-5.1) 09/29/22 20:42 Chloride 99 mmol/L (98-107) 09/29/22 20:42 Carbon Dioxide 24 mmol/L (22-29) 09/29/22 20:42 Anion Gap 19.2 (5-19) H 09/29/22 20:42 BUN 47 mg/dL (8-23) H 09/29/22 20:42 Creatinine 2.5 mg/dL (0.7-1.2) H 09/29/22 20:42 GFR Calculation Not Reportable 09/29/22 20:42 Glucose 133 mg/dL (65-115) H 09/29/22 20:42 Calculated Osmolality 300 mOsm/kg (285-295) H 09/29/22 20:42 Calcium 9.2 mg/dL (8.5-10.5) 09/29/22 20:42 Total Bilirubin 1.4 mg/dL (0.15-1.2) H 09/29/22 20:42 AST 358 U/L (0-40) H 09/29/22 20:42 ALT 151 U/L (0-41) H 09/29/22 20:42 Alkaline Phosphatase 168 U/L (40-130) H 09/29/22 20:42 C-Reactive Protein 3.0 mg/L (0.0-4.9) 09/29/22 20:42 Total Protein 6.4 g/dL (6.6-8.7) L 09/29/22 20:42 Albumin 4.0 g/dL (3.5-5.2) 09/29/22 20:42 Globulin 2.4 g/dL (1.3-4.6) 09/29/22 20:42 Lipase 42 U/L (13-60) 09/29/22 20:42 Urine Color Yellow (Yellow) 09/29/22 21:30 Urine Appearance Clear (CLEAR) 09/29/22 21:30 Urine pH 5 (5-7) 09/29/22 21:30 Ur Specific [place] 1.020 (1.005-1.030) 09/29/22 21:30 Urine Protein Trace (Negative) 09/29/22 21: Urine Glucose (UA) 4+ (Normal) H 09/29/22 21:30 Urine Ketones Negative (Negative) 09/29/22 21:30 Urine Blood Neg (Negative) 09/29/22 21:30 Urine Nitrate Negative (Negative) 09/29/22 21: Urine Bilirubin Neg (Negative) 09/29/22 21:30 Urine Urobilinogen Norm mg/dL (Negative) 09/29/22 21:30 Ur Leukocyte Esterase Negative (Negative) 09/29/22 21:30 Urine RBC 0-4 /hpf (0-2) H 09/29/22 21:30 Urine WBC 0-4 /hpf (0-5) H 09/29/22 21:30 Ur Squamous Epith Cells 0-4 /hpf (0-5) H 09/29/22 21:30 Amorphous Sediment Not Reportable 09/29/22 21:30 Urine Bacteria Trace /hpf (NONE) 09/29/22 21:30 Discharge Plan Discharge Patient Disposition: Home Clinical Impression: Biliary colic Condition: Stable Prescriptions: New hydrocodone-acetaminophen 5-325 mg tablet 1 tab PO Q8H PRN (Reason: pain) Qty: 7 0RF ondansetron 4 mg film 4 mg PO DAILY PRN (Reason: nausea and vomiting) Qty: 10 0RF No Action tamsulosin 0.4 mg capsule 0.4 mg PO DAILY Adult Probiotic 3 billion cell capsule 3,000 mmu cells PO DAILY Rx Instructions: administer with a meal cyanocobalamin (vitamin B-12) 1,000 mcg capsule 1,000 mcg PO DAILY folic acid 400 mcg tablet 0.4 mg PO DAILY glucosamine HCl 1,500 mg tablet 1,500 mg PO DAILY Rx Instructions: administer with a meal citalopram [Celexa] 20 mg tablet 20 mg PO DAILY cholecalciferol (vitamin D3) 50 mcg (2,000 unit) capsule 50 mcg PO DAILY calcium polycarbophil [FiberCon] 625 mg tablet 625 mg PO DAILY multivitamin Tablet 1 tab PO DAILY fluticasone propionate 50 mcg/actuation spray,suspension 2 spray INTRANASAL DAILY Rx Instructions: administer into each nostril aspirin [Adult Aspirin Regimen] 81 mg tablet,delayed release (DR/EC) 81 mg PO DAILY nitroglycerin 0.4 mg tablet, sublingual 0.4 mg sublingual Q5M PRN (Reason: chest pain) 30 Days Qty: 30 3RF Rx Instructions: until response; do not exceed 3 doses per episode Jardiance 10 mg tablet 10 mg PO DAILY carvedilol 25 mg tablet 25 mg PO BID Rx Instructions: must administer with a meal/food oxymetazoline [Afrin (oxymetazoline)] 0.05 % spray,non-aerosol See Rx Instructions intranasal .COMPLEX PRN Rx Instructions: 2 to 3 sprays intranasally every 10 to 12 hous PRN; PreserVision AREDS-2 250-90-40-1 mg capsule 1 tab PO BID pantoprazole 40 mg tablet,delayed release (DR/EC) 40 mg PO DAILY Qty: 90 3RF amlodipine 5 mg tablet 5 mg PO DAILY Qty: 100 3RF Rx Instructions: *Dose reduced simvastatin 40 mg tablet 40 mg PO DAILY Qty: 90 3RF ezetimibe 10 mg tablet 10 mg PO DAILY Qty: 100 3RF clopidogrel 75 mg tablet See Rx Instructions .ROUTE .COMPLEX Qty: 100 3RF Dose Instruction: TAKE 1 TABLET DAILY Rx Instructions: TAKE 1 TABLET DAILY lisinopril 10 mg tablet 10 mg PO DAILY Qty: 100 3RF nitroglycerin [Nitrostat] 0.4 mg tablet, sublingual 0.4 mg SUBLINGUAL Q5M PRN (Reason: chest pain) Qty: 50 3RF Rx Instructions: do not exceed 3 doses per episode (DME) diabetic shoes with 3 sets of insoles See Rx Instructions .Route .MEDSUPPLY Qty: 1 0RF Rx Instructions: as directed fenofibrate nanocrystallized [Tricor] 48 mg tablet See Rx Instructions .ROUTE .COMPLEX Qty: 90 3RF Dose Instruction: TAKE 1 TABLET DAILY Rx Instructions: TAKE 1 TABLET DAILY hydralazine 100 mg tablet 100 mg PO TID Qty: 270 3RF furosemide 40 mg tablet 40 mg PO DIRECTED Qty: 130 3RF Rx Instructions: Take 1 (40 mg) tablet daily Take 2 (80mg) tablets Saturday, Saturday and Saturday (DME) custom inserts See Rx Instructions .Route .MEDSUPPLY Qty: 1 0RF Rx Instructions: [id number] Discharge Orders: Discharge ED (Routine); Ordered 09/29/22 Ordered By: Phill Sullivan Referrals: Piyush Barajas MD [Physician] - 1-3 days Naima Logan PA [Primary Care Provider] - 1-3 days Patient Instructions: Biliary Colic (ED), Opioid Safety, Pain Management Activity Restrictions/Additional Instructions: Follow a bland diet for at least the next 12 hours. Liquids, broths, bread, etc. Stay away from fried foods or fatty foods in general. Also stay away from significant quantities of leafy greens. Return for fever greater than 100, worsening pain despite treatment, vomiting liquids or medications, any other concerning symptoms. Case management has been asked to make a surgery appointment for you this coming week. You should hear from them on Saturday or Saturday. Coding Level of Care Code ED M[employer] for Nimesh Matos
[2022-09-29] MEDS: ketorolac 30 mg/mL INJ 15 MG IVP (23:29)
[2022-09-29 23:47] VITALS: RESP 18; O2SAT 100
--- NOTE | 2022-10-01 10:23 | DCPLANNER ---
Addendum entered by Heike Garcia 10/04/22 09:53: strategic communications manager called [facility] to confirm that clinic received patients information. strategic communications manager was told that clinic received patients information, it would be reviewed, clinic will call patient with appointment information Addendum entered by Heike Garcia 10/02/22 15:34: Patient called mattress spring encaser back stating that he would like to be referred to [facility]. strategic communications manager faxed patients records to [facility]. Patients information will be reviewed, clinic will call patient with appointment information. Addendum entered by Heike Garcia 10/02/22 12:41: strategic communications manager received the following message from the front staff at general surgery regarding follow up appointment: Patient has [facility], please refer elsewhere strategic communications manager called patient at phone number [phone] to discuss where patient would like for mattress spring encaser to send patients information, [facility] or [facility]. strategic communications manager unable to speak with patient at this time, a voicemail was left for patient to return mattress spring encaser phone call. Original Note: strategic communications manager had message to schedule a follow up appointment for patient with general surgery. strategic communications manager sent patients information to the front office staff at general surgery. Patients information will be printed and reviewed. Clinic will call patient with appointment information.
== END 2022-09-30 00:12 | disposition home or self-care (01) ==
PROVIDERS: Emergency Provider Emergency Medicine; PCP Physician Assistant
DX: K80.20 Calculus of gallbladder without cholecystitis without obstruction (principal); E11.9 Type 2 diabetes mellitus without complications; I10 Essential (primary) hypertension; E78.5 Hyperlipidemia, unspecified; I25.118 Atherosclerotic heart disease of native coronary artery with other forms of angina pectoris; Z79.84 Long term (current) use of oral hypoglycemic drugs; Z79.82 Long term (current) use of aspirin; Z87.891 Personal history of nicotine dependence
CPT/HCPCS: 36415; 76705; 80053; 81001; 83690; 85025; 86140; 96361; 96374; 96375; 99284; J1885; J2270; J2405; J7040

== ENCOUNTER 2022-11-02 11:00 | Oncology outpatient (recurring) (ONCR) | payer OTHER, SELFPAY ==
[2022-10-23 12:51] VITALS: BP 121/44; PULSE 55; TEMP 36.3; O2SAT 98
[2022-10-23] MEDS: sodium chloride 0.9% 250 ML 100 ML IV (13:20)
[2022-10-23] MEDS: ferric carboxy (IVPB) 750 MG in sodium chloride 0.9% (100 ml) 100 ML 345 MG IV (13:31)
[2022-10-23 14:23] VITALS: BP 127/52; PULSE 54; TEMP 36.5; O2SAT 98
[2022-11-02] MEDS: ferric carboxy (IVPB) 750 MG in sodium chloride 0.9% (100 ml) 100 ML 345 MG IV (11:36)
[2022-11-02] MEDS: sodium chloride 0.9% 250 ML 75 ML IV (11:36)
[2022-11-02 11:42] VITALS: BP 123/57; PULSE 74; RESP 16; TEMP 36.6; O2SAT 98
== END 2022-11-11 23:59 | disposition home or self-care (01) ==
PROVIDERS: PCP Physician Assistant; Visit Provider Internal Medicine Medical Oncology
DX: D50.9 Iron deficiency anemia, unspecified (principal)
CPT/HCPCS: 96365; J1439; J7050

== ENCOUNTER 2022-11-02 12:09 | Emergency (ER) | payer OTHER, SELFPAY ==
[2022-11-02] VITALS (14 sets, daily range): BP systolic 122–168; BP diastolic 43–74; PULSE 62–88; RESP 16–18; TEMP 36.5; O2SAT 94–98
--- NOTE | 2022-11-02 13:10 | CTR_ITS ---
PROCEDURE INFORMATION: Exam: CT Abdomen And Pelvis Without Contrast Exam date and time: 11/02/2022 2:44 PM Age: 81 years old Clinical indication: Abdominal pain; Prior surgery; Surgery type: Recent yehuda; Stents; Additional info: R sided pain, recent yehuda, constipation TECHNIQUE: Imaging protocol: Computed tomography of the abdomen and pelvis without contrast. Radiation optimization: All CT scans at this facility use at least one of these dose optimization techniques: automated exposure control; mA and/or kV adjustment per patient size (includes targeted exams where dose is matched to clinical indication); or iterative reconstruction. REPORTING DATA: Count of CT and Cardiac NM exams in prior 12 months: This patient has received [address] and 0 known cardiac nuclear medicine studies in the 12 months prior to the current study. COMPARISON: MR MRCP [id number] 01/27/2020 8:44 AM RADIATION DOSE METRICS: Total DLP (mGy-cm): 599.83 FINDINGS: Lungs: There is right lower lobe atelectasis. Pleural spaces: A small right pleural effusion is noted. Heart: Cardiomediastinal postsurgical changes are noted. Coronary arteries: Coronary arterial calcifications are seen. Diaphragm: There is a small hiatal hernia. The stomach is otherwise unremarkable. Liver: There are no focal liver lesions present. Gallbladder and bile ducts: There has been recent cholecystectomy. Free intraperitoneal air is presumed postoperative. A small amount of fluid density and gas bubbles are present in the gallbladder fossa. This may reflect recent postoperative change, but bile leak can not be entirely excluded. Pancreas: The pancreas is normal. Spleen: A benign-appearing 3.8 cm cyst in the anterior spleen is again noted. Adrenal glands: The adrenal glands are normal. Kidneys and ureters: Simple appearing renal cortical cysts are again noted. No calculi are seen in the renal collecting systems, ureters or bladder. Stomach and bowel: Diverticulosis coli is noted, with no inflammatory changes to indicate diverticulitis. Appendix: No evidence of appendicitis. Intraperitoneal space: See Gallbladder and bile ducts finding. Vasculature: Calcified atherosclerotic plaque is seen near the left renal hilum. No abdominal aortic aneurysm. Atherosclerotic vascular disease is noted. Lymph nodes: No abdominal or pelvic lymphadenopathy is seen. Urinary bladder: The bladder is unremarkable except for a small amount of air, likely postoperative. Reproductive: Prostatomegaly is noted. The prostate gland measures 6.0 cm in diameter. Bones/joints: L1 compression fracture is unchanged compared to previous study. Spinal degenerative changes are noted. There is anterolisthesis at L5-S1. Soft tissues: Gas is seen in the superficial subcutaneous soft tissues of the anterior abdominal wall, consistent with recent postoperative status. CT/CT abdomen pelvis wo con [id number] IMPRESSION: 1. Recent cholecystectomy, with associated intraperitoneal air and subcutaneous emphysema along the presumed incision line. Small amount of fluid and air in the gallbladder fossa may reflect recent postoperative change, but bile leak can not be entirely excluded. 2. Right lower lobe atelectasis. Pneumonitis can not be excluded. 3. Small right pleural effusion. 4. Simple appearing splenic and renal cysts. 5. Small hiatal hernia. 6. Diverticulosis coli. 7. L1 compression deformity, age indeterminate but unchanged compared to 10/30/2019 CT.
--- NOTE | 2022-11-02 13:11 | W.ED.ABDPA2 ---
HPI - Abdominal Pain General: Chief Complaint: Abdominal Pain Stated Complaint: post-op/abd pains Time Seen by Provider: 11/02/22 12:38 Source: patient Mode of arrival: ambulatory Limitations: no limitations History of Present Illness: Patient is an 81-year-old male who presents to ED today along with family for complaints of abdominal pain. He states he is status postcholecystectomy performed at [facility] in [place] (Dr. Mas) approximately 4 days ago. Patient states he has had some discomfort since the surgery but it did not appear to be worsening. He states he has not had a bowel movement since Saturday. He states he was over hematology receiving an IV infusion of iron and when he discussed symptoms with staff they instructed him to come to the ED because symptoms sounded like a bowel obstruction . She has not had any nausea or vomiting. Up until today he had been taking scheduled pain medications every 4-6 hours. No fevers. MD elicited complaint: abdominal pain Onset (ago): day(s) Pain Consistency: constant Location: RUQ and RLQ Severity: mild Quality: aching Radiation: none Migration to: no migration Exacerbating factors: nothing Relieving factors: nothing Context: recent surgery/procedure Associated Symptoms: Reports constipation; Denies chills, dysuria, fever(s), hematuria, nausea and vomiting Review of Systems Const: Denies: fever(s), chills, body aches, fatigue or malaise Card: Denies: chest pain Resp: Denies: dyspnea GI: Reports: abdominal pain (since surgery-does not appear to be worsening per patient) and constipation; Denies: nausea or vomiting : Denies: flank pain, dysuria or hematuria Musc: Denies: neck pain, back pain or joint pain Neuro: Denies: headache(s), numbness in extremities, weakness in extremities or sensory changes PFSH ED PFSH: Medical History Atherosclerotic heart disease of [place] coronary artery with other forms of angina pectoris Benign essential HTN Bilateral carotid artery stenosis BPH loc w urin obs/LUTS CAD (coronary artery disease) Chronic kidney disease Diabetes Dyslipidemia (high LDL; low HDL) Elevated PSA Hyperlipidemia Hypertension Surgical History H/O adenoidectomy H/O heart bypass surgery History of common carotid artery stent placement Hx of cataract extraction Hx of tonsillectomy S/P right rotator cuff repair Family History Father , at age 83 Cancer prostate Mother , at age 93 Dementia Brother Cancer Other Hyperlipidemia Denies family history of Diabetes CAD (coronary artery disease) Clotting disorder Chronic kidney disease (CKD) Suicide Anesthesia complication Bleeding disorder Lung disease Stroke Social History Smoking and tobacco status: former smoker Alcohol intake: never Substance/Drug Use: never Adopted: No Caregiver/support person: No Lives independently: No Household members: spouse Marital status: Current occupational status: retired Physical Exam Const: COMMON NORMALS: no acute distress, patient oriented x3, no limitations and alert GENERAL APPEARANCE: cooperative ORIENTATION/CONSCIOUSNESS: Yes awake, Yes oriented to person, Yes oriented to place and Yes oriented to time Eye: COMMON NORMALS: no scleral icterus Resp: COMMON NORMALS: normal respiratory effort and clear to auscultation bilaterally AUSCULTATION: clear to auscultation bilaterally Cardio: COMMON NORMALS: regular rate and regular rhythm RATE: regular rate RHYTHM: regular rhythm GI: COMMON NORMALS: Soft to palpation and no masses INSPECTION: Yes normal to inspection, Yes incision (surgical incisions all appear clean/healing well) and Yes other (no ascites noted) AUSCULTATION: Yes normoactive bowel sounds PALPATION: Yes Soft to palpation, Yes Tenderness to palpation present (GI) (alongside R abdomen; exam seems consistent with post op day 4), No Guarding due to palpation present (GI) and No Rigid due to palpation : COMMON NORMALS: Yes no CVA tenderness BLADDER/KIDNEY EXAM: Yes no CVA tenderness Back/Pelvis: COMMON NORMALS: no CVA tenderness Extremity: GENERAL: Yes normal exam except as noted Neuro: ABHI COMA SCALE: document GCS findings [place] coma scale eye opening: Spontaneous Abhi coma scale verbal response: Orientated [place] coma scale motor response: Obey commands [place] coma scale total score: 15 COMMON NORMALS: patient oriented x3 SENSORIUM/ORIENTATION: Yes alert, Yes oriented to person, Yes oriented to place and Yes oriented to time Skin: COMMON NORMALS: no rashes or lesions noted GENERAL SKIN EXAM: no rashes or lesions noted Course Consultations: Consultation #1: Dr. Patterson-Joanna GI/gen surgery (intervention manager for Dr. Mas)-stated CT findings are all normal post operative and with his normal labs did not have concerns for bile leak-recommended follow up with his surgeon on Saturday Vital Signs: Vital signs: Vital Signs Temperature 97.7 F 11/02/22 12:35 Pulse Rate 80 11/02/22 17:45 Respiratory Rate 16 11/02/22 17:45 Blood Pressure 154/74 11/02/22 17:45 Pulse Oximetry 98 11/02/22 17:45 Oxygen Delivery Me thod Room Air 11/02/22 16:00 MDM - Abdominal Pain Medical Decision Making Patient's vital signs are normal. His blood work is unremarkable. He has a normal white count. Normal LFTs/tbili. He has minor elevations to his BUN/Cr that are chronic. CT imaging showing normal/expected postop findings however the radiologist did comment on some fluid and air in the gallbladder fossa that may reflect recent postoperative change but bile leak cannot be entirely excluded. Again patient is afebrile with normal LFTs/tbili so unlikely but did go ahead and consult with GI/gen surg at [facility] where patient had surgery. They agreed this is not likely and findings all seem normal post op. Recommend follow up with his surgeon Dr. Mas on Saturday. Lab Data 11/02/22 13:44 11/02/22 13:44 Labs/Radiology: Radiology Impressions Abdomen/Pelvis CT 11/02/22 13:10 IMPRESSION: 1. Recent cholecystectomy, with associated intraperitoneal air and subcutaneous emphysema along the presumed incision line. Small amount of fluid and air in the gallbladder fossa may reflect recent postoperative change, but bile leak can not be entirely excluded. 2. Right lower lobe atelectasis. Pneumonitis can not be excluded. 3. Small right pleural effusion. 4. Simple appearing splenic and renal cysts. 5. Small hiatal hernia. 6. Diverticulosis coli. 7. L1 compression deformity, age indeterminate but unchanged compared to 10/30/2019 CT. Laboratory Results WBC 7.8 10^3/uL (4.0-10.0) 11/02/22 13:44 RBC 2.99 10^6/uL (4.1-5.3) L 11/02/22 13:44 Hgb 9.1 g/dL (11.7-16.6) L 11/02/22 13:44 Hct 29.4 % (42.0-52.0) L 11/02/22 13:44 MCV 98.3 fl (80-94) H 11/02/22 13:44 MCH 30.4 pg (28.0-34.0) 11/02/22 13:44 MCHC 31.0 g/dL (30.0-36.0) 11/02/22 13:44 RDW 16.8 % (12.1-15.1) H 11/02/22 13:44 Plt Count 168 10^3/cmm (130-400) 11/02/22 13:44 MPV 10.5 fL (7.4-10.4) H 11/02/22 13:44 Neut % (Auto) 80.1 % 11/02/22 13:44 Lymph % (Auto) 11.2 % 11/02/22 13:44 Jack % (Auto) 7.3 % 11/02/22 13:44 Eos % (Auto) 0.8 % 11/02/22 13:44 Baso % (Auto) 0.3 % 11/02/22 13:44 Neut # (Auto) 6.25 10^3/uL (1.8-7.7) 11/02/22 13:44 Lymph # (Auto) 0.9 10^3/uL (0.8-4.8) 11/02/22 13:44 Jack # (Auto) 0.6 10^3/uL (0.2-0.9) 11/02/22 13:44 Eos # (Auto) 0.1 10^3/uL (0.0-0.8) 11/02/22 13:44 Baso # (Auto) 0.0 10^3/uL (0.0-0.1) 11/02/22 13:44 Nucleated RBC % (auto) 0 % 11/02/22 13:44 Nucleated RBCs # 0.0 /100WBC 11/02/22 13:44 Sodium 135 mmol/L (136-145) L 11/02/22 13:44 Potassium 4.2 mmol/L (3.5-5.1) 11/02/22 13:44 Chloride 100 mmol/L (98-107) 11/02/22 13:44 Carbon Dioxide 22 mmol/L (22-29) 11/02/22 13:44 Anion Gap 17.2 (5-19) 11/02/22 13:44 BUN 35 mg/dL (8-23) H 11/02/22 13:44 Creatinine 2.1 mg/dL (0.7-1.2) H 11/02/22 13:44 GFR Calculation Not Reportable 11/02/22 13:44 Glucose 109 mg/dL (65-115) 11/02/22 13:44 Calculated Osmolality 289 mOsm/kg (285-295) 11/02/22 13:44 Calcium 8.7 mg/dL (8.5-10.5) 11/02/22 13:44 Total Bilirubin 0.3 mg/dL (0.15-1.2) 11/02/22 13:44 AST 36 U/L (0-40) 11/02/22 13:44 ALT 34 U/L (0-41) 11/02/22 13:44 Alkaline Phosphatase 57 U/L (40-130) 11/02/22 13:44 Total Protein 5.9 g/dL (6.6-8.7) L 11/02/22 13:44 Albumin 3.4 g/dL (3.5-5.2) L 11/02/22 13:44 Globulin 2.5 g/dL (1.3-4.6) 11/02/22 13:44 Lipase 15 U/L (13-60) 11/02/22 13:44 Urine Color Straw (Yellow) 11/02/22 13:24 Urine Appearance Clear (CLEAR) 11/02/22 13:24 Urine pH 5 (5-7) 11/02/22 13:24 Ur Specific [place] 1.005 (1.005-1.030) 11/02/22 13:24 Urine Protein Neg (Negative) 11/02/22 13:24 Urine Glucose (UA) 2+ (Normal) H 11/02/22 13:24 Urine Ketones Negative (Negative) 11/02/22 13:24 Urine Blood Neg (Negative) 11/02/22 13:24 Urine Nitrate Negative (Negative) 11/02/22 13:24 Urine Bilirubin Neg (Negative) 11/02/22 13:24 Urine Urobilinogen Norm mg/dL (Negative) 11/02/22 13:24 Ur Leukocyte Esterase Negative (Negative) 11/02/22 13:24 Discharge Plan Discharge Patient Disposition: Home Clinical Impression: Postoperative abdominal pain Condition: Stable Prescriptions: No Action tamsulosin 0.4 mg capsule 0.4 mg PO DAILY Adult Probiotic 3 billion cell capsule 3,000 mmu cells PO DAILY Rx Instructions: administer with a meal cyanocobalamin (vitamin B-12) 1,000 mcg capsule 1,000 mcg PO DAILY folic acid 400 mcg tablet 0.4 mg PO DAILY glucosamine HCl 1,500 mg tablet 1,500 mg PO DAILY Rx Instructions: administer with a meal citalopram [Celexa] 20 mg tablet 20 mg PO DAILY cholecalciferol (vitamin D3) 50 mcg (2,000 unit) capsule 50 mcg PO DAILY calcium polycarbophil [FiberCon] 625 mg tablet 625 mg PO DAILY multivitamin Tablet 1 tab PO DAILY fluticasone propionate 50 mcg/actuation spray,suspension 2 spray INTRANASAL DAILY Rx Instructions: administer into each nostril aspirin [Adult Aspirin Regimen] 81 mg tablet,delayed release (DR/EC) 81 mg PO DAILY nitroglycerin 0.4 mg tablet, sublingual 0.4 mg sublingual Q5M PRN (Reason: chest pain) 30 Days Qty: 30 3RF Rx Instructions: until response; do not exceed 3 doses per episode Jardiance 10 mg tablet 10 mg PO DAILY carvedilol 25 mg tablet 25 mg PO BID Rx Instructions: must administer with a meal/food oxymetazoline [Afrin (oxymetazoline)] 0.05 % spray,non-aerosol See Rx Instructions intranasal .COMPLEX PRN Rx Instructions: 2 to 3 sprays intranasally every 10 to 12 hous PRN; PreserVision AREDS-2 250-90-40-1 mg capsule 1 tab PO BID pantoprazole 40 mg tablet,delayed release (DR/EC) 40 mg PO DAILY Qty: 90 3RF amlodipine 5 mg tablet 5 mg PO DAILY Qty: 100 3RF Rx Instructions: *Dose reduced simvastatin 40 mg tablet 40 mg PO DAILY Qty: 90 3RF ezetimibe 10 mg tablet 10 mg PO DAILY Qty: 100 3RF clopidogrel 75 mg tablet See Rx Instructions .ROUTE .COMPLEX Qty: 100 3RF Dose Instruction: TAKE 1 TABLET DAILY Rx Instructions: TAKE 1 TABLET DAILY lisinopril 10 mg tablet 10 mg PO DAILY Qty: 100 3RF nitroglycerin [Nitrostat] 0.4 mg tablet, sublingual 0.4 mg SUBLINGUAL Q5M PRN (Reason: chest pain) Qty: 50 3RF Rx Instructions: do not exceed 3 doses per episode (DME) diabetic shoes with 3 sets of insoles See Rx Instructions .Route .MEDSUPPLY Qty: 1 0RF Rx Instructions: as directed fenofibrate nanocrystallized [Tricor] 48 mg tablet See Rx Instructions .ROUTE .COMPLEX Qty: 90 3RF Dose Instruction: TAKE 1 TABLET DAILY Rx Instructions: TAKE 1 TABLET DAILY hydralazine 100 mg tablet 100 mg PO TID Qty: 270 3RF furosemide 40 mg tablet 40 mg PO DIRECTED Qty: 130 3RF Rx Instructions: Take 1 (40 mg) tablet daily Take 2 (80mg) tablets Saturday, Saturday and Saturday (DME) custom inserts See Rx Instructions .Route .MEDSUPPLY Qty: 1 0RF Rx Instructions: 5514 hydrocodone-acetaminophen 5-325 mg tablet 1 tab PO Q8H PRN (Reason: pain) Qty: 7 0RF ondansetron 4 mg film 4 mg PO DAILY PRN (Reason: nausea and vomiting) Qty: 10 0RF Discharge Orders: Discharge ED (Routine); Ordered 11/02/22 Ordered By: Bhavani Johns Referrals: Naima Logan PA [Primary Care Provider] - Patient Instructions: Abdominal Pain (ED) Activity Restrictions/Additional Instructions: As we discussed you may use buya-hsm-gsbkyxi medications such as MiraLAX and milk of magnesia to help with bowel movements. Increase fiber intake. You need to contact your surgeon on Saturday for further instructions if pain persists. You need to return to the emergency department for worsening or severe abdominal pain, yellowing to your skin or eyes, fevers greater than 100.4, repetitive episodes of vomiting, or any other concerns you may have. I hope you began to feel better soon. Print Language: Salvadorean Coding Level of Care Code ED Striper Spray Gun for Nimesh Matos
[2022-11-02 13:30] LABS: Add Urine Microscopic? NO; Charge for UA Resulting for Rev
[2022-11-02 13:45] LABS: Bilirubin Urine Neg (Negative); Blood Urine Neg (Negative); Glucose Urine UA 2+ (Normal); Ketones Urine Negative (Negative); Leukocyte Esterase Urine Negative (Negative); Nitrate Urine Negative (Negative); Protein Urine Neg (Negative); Specific Gravity, Urine 1.005 (1.005-1.030); Urine Appearance Clear (CLEAR); Urine Color Straw (Yellow); Urobilinogen Urine Norm (Negative); pH Urine 5 (5-7)
[2022-11-02 13:52] LABS: Basophils % 0.3 %; Eosinophils # 0.1 10^3/uL (0.0-0.8); Eosinophils % 0.8 %; Hematocrit 29.4 % (42.0-52.0); Hemoglobin 9.1 g/dL (11.7-16.6); Lymphocytes # 0.9 10^3/uL (0.8-4.8); Lymphocytes % 11.2 %; Mean Corpuscular Hemoglobin 30.4 pg (28.0-34.0); Mean Corpuscular Volume 98.3 fl (80-94); Mean Platelet Volume 10.5 fL (7.4-10.4); Monocytes # 0.6 10^3/uL (0.2-0.9); Monocytes % 7.3 %; Neutrophils # 6.25 10^3/uL (1.8-7.7); Neutrophils % 80.1 %; Nucleated Red Blood Cells % 0 %; Platelet Count 168 10^3/cmm (130-400); Red Blood Count 2.99 10^6/uL (4.1-5.3); Red Cell Distribution Width 16.8 % (12.1-15.1); White Blood Count 7.8 10^3/uL (4.0-10.0)
[2022-11-02 14:16] LABS: Alanine Aminotransferase 34 U/L (0-41); Albumin Level 3.4 g/dL (3.5-5.2); Alkaline Phosphatase 57 U/L (40-130); Anion Gap 17.2 (5-19); Aspartate Amino Transferase 36 U/L (0-40); Blood Urea Nitrogen 35 mg/dL (8-23); Calcium 8.7 mg/dL (8.5-10.5); Carbon Dioxide 22 mmol/L (22-29); Chloride 100 mmol/L (98-107); Globulin 2.5 g/dL (1.3-4.6); Glucose 109 mg/dL (65-115); Lipase 15 U/L (13-60); Osmolality Calculated 289 mOsm/kg (285-295); Potassium 4.2 mmol/L (3.5-5.1); Sodium 135 mmol/L (136-145); Total Bilirubin 0.3 mg/dL (0.15-1.2); Total Protein 5.9 g/dL (6.6-8.7)
[2022-11-02 14:19] LABS: Creatinine Clr Calc Pharmacy 25.6808
== END 2022-11-02 17:46 | disposition home or self-care (01) ==
PROVIDERS: Emergency Provider Physician Assistant; PCP Physician Assistant
DX: G89.18 Other acute postprocedural pain (principal); R10.9 Unspecified abdominal pain; Z79.82 Long term (current) use of aspirin; Z79.02 Long term (current) use of antithrombotics/antiplatelets; K44.9 Diaphragmatic hernia without obstruction or gangrene; Z87.891 Personal history of nicotine dependence; I12.9 Hypertensive chronic kidney disease with stage 1 through stage 4 chronic kidney disease, or unspecified chronic kidney disease; E11.22 Type 2 diabetes mellitus with diabetic chronic kidney disease; N18.9 Chronic kidney disease, unspecified; I25.10 Atherosclerotic heart disease of native coronary artery without angina pectoris; E78.5 Hyperlipidemia, unspecified
CPT/HCPCS: 74176; 80053; 81003; 83690; 85025; 99284; 99285

== ENCOUNTER 2022-11-27 13:19 | Oncology outpatient (recurring) (ONCR) | payer OTHER, SELFPAY ==
[2022-11-27 14:53] LABS: Basophils % 0.4 %; Eosinophils # 0.1 10^3/uL (0.0-0.8); Eosinophils % 1.7 %; Hematocrit 32.7 % (42.0-52.0); Hemoglobin 10.5 g/dL (11.7-16.6); Lymphocytes # 1.1 10^3/uL (0.8-4.8); Mean Corpuscular HGB Conc 32.1 g/dL (30.0-36.0); Mean Corpuscular Hemoglobin 31.4 pg (28.0-34.0); Mean Corpuscular Volume 97.9 fl (80-94); Mean Platelet Volume 10.5 fL (7.4-10.4); Monocytes # 0.4 10^3/uL (0.2-0.9); Monocytes % 8.9 %; Neutrophils # 3.17 10^3/uL (1.8-7.7); Neutrophils % 65.8 %; Nucleated Red Blood Cells % 0 %; Platelet Count 188 10^3/cmm (130-400); Red Blood Count 3.34 10^6/uL (4.1-5.3); White Blood Count 4.8 10^3/uL (4.0-10.0)
[2022-11-27 15:12] LABS: Alanine Aminotransferase 12 U/L (0-41); Albumin Level 3.9 g/dL (3.5-5.2); Alkaline Phosphatase 55 U/L (40-130); Anion Gap 16.3 (5-19); Aspartate Amino Transferase 14 U/L (0-40); Blood Urea Nitrogen 49 mg/dL (8-23); Calcium 8.2 mg/dL (8.5-10.5); Carbon Dioxide 23 mmol/L (22-29); Chloride 102 mmol/L (98-107); Ferritin 834 ng/mL (30-400); Glucose 103 mg/dL (65-115); Iron 98 ug/dL (59-158); Osmolality Calculated 297 mOsm/kg (285-295); Percent Saturation 39.8 % (20-50); Potassium 4.3 mmol/L (3.5-5.1); Sodium 137 mmol/L (136-145); Total Bilirubin 0.2 mg/dL (0.15-1.2); Total Iron Binding Capacity 246 mcg/dl; Total Protein 5.9 g/dL (6.6-8.7); Unsaturated Iron Binding 148 ug/dL (112-347)
== END 2022-12-12 23:59 | disposition home or self-care (01) ==
LOC: ONCMED 13:20
PROVIDERS: PCP Physician Assistant; Visit Provider Internal Medicine Medical Oncology
DX: D50.9 Iron deficiency anemia, unspecified (principal)
CPT/HCPCS: 36415; 80053; 82728; 83540; 83550; 85025

== ENCOUNTER → 2022-12-26 13:44 | Outpatient (BNVA) | payer MEDICARE, OTHER, SELFPAY | PROVIDERS: PCP Physician Assistant; Visit Provider Nurse Practitioner Family | DX: I25.118 Atherosclerotic heart disease of native coronary artery with other forms of angina pectoris (principal); I73.9 Peripheral vascular disease, unspecified; Z87.891 Personal history of nicotine dependence; I12.9 Hypertensive chronic kidney disease with stage 1 through stage 4 chronic kidney disease, or unspecified chronic kidney disease; E11.22 Type 2 diabetes mellitus with diabetic chronic kidney disease; N18.9 Chronic kidney disease, unspecified | CPT/HCPCS: 99214 ==

== ENCOUNTER 2023-02-01 22:12 | Inpatient (IN) | payer MEDICARE, OTHER, SELFPAY ==
[2023-02-01 22:18] VITALS: PULSE 79; RESP 20; TEMP 36.7; O2SAT 93; BMI 25.8
[2023-02-01 23:50] LABS: Hematocrit 37.3 % (42.0-52.0); Hemoglobin 11.9 g/dL (11.7-16.6); Mean Corpuscular HGB Conc 31.9 g/dL (30.0-36.0); Mean Corpuscular Hemoglobin 32.6 pg (28.0-34.0); Mean Corpuscular Volume 102.2 fl (80-94); Mean Platelet Volume 10.1 fL (7.4-10.4); Platelet Count 186 10^3/cmm (130-400); Red Blood Count 3.65 10^6/uL (4.1-5.3); Red Cell Distribution Width 13.5 % (12.1-15.1); White Blood Count 4.2 10^3/uL (4.0-10.0)
--- NOTE | 2023-02-01 23:51 | ED_ITS ---
HPI - Abdominal Pain General: Chief Complaint: Abdominal Pain Stated Complaint: ABD Pain Time Seen by Provider: 02/01/23 23:30 Source: patient Mode of arrival: ambulatory History of Present Illness: 82-year-old male presents emergency room complaining of abdominal pain that began early on Saturday morning yesterday. Patient was seen at a local clinic they given pain medications and nausea medications despite this is symptoms wo rsen he had severe nausea and vomiting. Is complaining of generalized abdominal pain. He denies any fever. The tramadol and Zofran that he was given did not help. MD elicited complaint: abdominal pain Onset (ago): hour(s) Pain Consistency: constant Location: Diffuse Severity: severe Quality: cramping Exacerbating factors: nothing Relieving factors: nothing Associated Symptoms: Reports nausea and vomiting; Denies anorexia, belching, bloating, change in bowel habits, change in stool character, chills, coffee ground emesis, constipation, GI cramping, diarrhea, dyspepsia, dysuria, excessive flatus, fever(s), heartburn, hematochezia, hemat uria, hematemesis, fecal incontinence, loose stools, melena, poor appetite and syncope Review of Systems Const: Denies: fever(s) or chills Card: Denies: chest pain or syncope Resp: Denies: dyspnea GI: Reports: abdominal pain, nausea and vomiting; Denies: hematemesis, coffee ground emesis, heartburn, diarrhea, constipation, bloating, GI cramping, belching, excessive flatus, fecal incontinence, change in bowel habits, change in stool character, hematochezia or melena : Denies: dysuria, urinary frequency, urinary urgency or hematuria PFSH ED PFSH: Medical History Atherosclerotic heart disease of [place] coronary artery with other forms of angina pectoris Benign essential HTN Bilateral carotid artery stenosis BPH loc w urin obs/LUTS CAD (coronary artery disease) Chronic kidney disease Diabetes Dyslipidemia (high LDL; low HDL) Elevated PSA Hyperlipidemia Hypertension Surgical History H/O adenoidectomy H/O heart bypass surgery History of common carotid artery stent placement Hx of cataract extraction Hx of tonsillectomy S/P right rotator cuff repair Family History Father , at age 83 Cancer prostate Mother , at age 93 Dementia Brother Cancer Other Hyperlipidemia Denies family history of Diabetes CAD (coronary artery disease) Clotting disorder Chronic kidney disease (CKD) Suicide Anesthesia complication Bleeding disorder Lung disease Stroke Social History Smoking and tobacco status: former smoker Alcohol intake: never Substance/Drug Use: never Adopted: No Caregiver/support person: No Lives independently: No Household members: spouse Marital status: Current occupational status: retired Physical Exam Const: GENERAL APPEARANCE: cooperative and comfortable ORIENTATION/CONSCIOUSNESS: Yes awake, Yes oriented to person, Yes oriented to place and Yes oriented to time HENMT: COMMON NORMALS: normocephalic, atraumatic and hearing grossly normal bilaterally HEAD & SCALP: normocephalic and atraumatic Resp: COMMON NORMALS: normal respiratory effort, No retractions, No use of accessory muscles and clear to auscultation bilaterally AUSCULTATION: clear to auscultation bilaterally Cardio: COMMON NORMALS: regular rate, regular rhythm and No murmurs present (Cardio) RATE: regular rate RHYTHM: regular rhythm GI: COMMON NORMALS: No hepatosplenomegaly present AUSCULTATION: Yes normoactive bowel sounds PALPATION: Yes Tenderness to palpation present (GI), Yes Guarding due to palpation present (GI) and Yes No hepatosplenomegaly present Extremity: COMMON NORMALS: normal to inspection, capillary refill normal, no clubbing, cyanosis or edema, no calf tenderness and no pedal edema Neuro: SENSORIUM/ORIENTATION: Yes oriented to person, Yes oriented to place and Yes oriented to time Skin: COMMON NORMALS: no rashes or lesions noted GENERAL SKIN EXAM: no rashes or lesions noted Course Vital Signs: Vital signs: Vital Signs Temperature 98.1 F 02/01/23 22:18 Pulse Rate 83 02/02/23 00:59 Respiratory Rate 18 02/02/23 01:25 Blood Pressure 153/68 02/02/23 00:59 Pulse Oximetry 92 02/02/23 00:59 Oxygen Delivery Me thod Room Air 02/02/23 00:59 MDM - Abdominal Pain Medical Decision Making Known history of diabetes mellitus coronary disease he is on Plavix. Recently had cholecystectomy which she did well with. We will admit the patient discussed with surgery and consulted medicine because of his complicated medical history. He had a previous stress test which was negative for Medical Records I reviewed the patient's medical records. Lab Data I reviewed the patient's lab results. 02/01/23 23:40 02/01/23 23:40 Labs/Radiology: Radiology Impressions Abdomen/Pelvis CT 02/02/23 00:01 IMPRESSION: 1. Acute appendicitis. 2. Diverticulosis without diverticulitis. 3. Nodular prostate gland enlargement. 4. Small bilateral left greater than right fat containing inguinal hernias without bowel or inflammation. 5. Coronary artery atherosclerotic calcifications. 6. Cardiomegaly. 7. Hepatic steatosis. 8. Cholecystectomy. 9. Splenic cyst. 10. Bilateral renal cysts, negative for follow up. 11. L1 vertebral body chronic appearing compression fracture. 12. Small amount nonspecific fluid in the pelvis. COMMENTS: Consistent with the [employer]'s Incidental Findings Committee white paper (J Am Derek Radiol 2018): Any incidental renal lesion less than 1 cm or classified as too small to characterize, or any incidental cystic renal lesion characterized as simple-appearing, is likely benign. No follow-up imaging is recommended for these lesions per consensus recommendations based on imaging criteria. ADDENDUM: 02/02/23 0135 THIS REPORT CONTAINS FINDINGS THAT MAY BE CRITICAL TO PATIENT CARE. The findings were verbally communicated via telephone conference with HIMANSHU MUJICA at 1:34 AM CDT on 02/02/2023. The findings were acknowledged and understood. Laboratory Results WBC 4.2 10^3/uL (4.0-10.0) 02/01/23 23:40 RBC 3.65 10^6/uL (4.1-5.3) L 02/01/23 23:40 Hgb 11.9 g/dL (11.7-16.6) 02/01/23 23:40 Hct 37.3 % (42.0-52.0) L 02/01/23 23:40 MCV 102.2 fl (80-94) H 02/01/23 23:40 MCH 32.6 pg (28.0-34.0) 02/01/23 23:40 MCHC 31.9 g/dL (30.0-36.0) 02/01/23 23:40 RDW 13.5 % (12.1-15.1) 02/01/23 23:40 Plt Count 186 10^3/cmm (130-400) 02/01/23 23:40 MPV 10.1 fL (7.4-10.4) 02/01/23 23:40 Lymph % (Auto) Not Reportable 02/01/23 23:40 [place] % (Auto) Not Reportable 02/01/23 23:40 Lymph # (Auto) Not Reportable 02/01/23 23:40 [place] # (Auto) Not Reportable 02/01/23 23:40 Total Counted 100 (0-100) 02/01/23 23:40 Atypical Lymphs % 0.0 % (0-5) 02/01/23 23:40 Absolute Neutrophils 3.8 10^3/cmm (1.4-6.5) 02/01/23 23:40 Segmented Neutrophils 87 % 02/01/23 23:40 Abs Segm Neuts (Man) 3.7 10/cmm (1.6-7.1) 02/01/23 23:40 Band Neutrophils 4.0 % 02/01/23 23:40 Abs Band Neuts (Man) 0.2 10^3/cmm (0.0-1.2) 02/01/23 23:40 Absolute Lymphocytes 0.3 10^3/cmm (1.2-3.4) L 02/01/23 23:40 Lymphocytes (Manual) 7 % 02/01/23 23:40 Monocytes (Manual) 2.0 % 02/01/23 23:40 Absolute Monocytes 0.1 10^3/cmm (0.1-0.6) 02/01/23 23:40 Eosinophils (Manual) 0 % 02/01/23 23:40 Absolute Eosinophils 0.0 10^3/cmm (0.0-0.7) 02/01/23 23:40 Basophils (Manual) 0.0 % 02/01/23 23:40 Absolute Basophils 0.0 10^3/cmm (0.0-0.2) 02/01/23 23:40 Toxic Granulation 1+ H 02/01/23 23:40 Toxic Vacuolation Trace 02/01/23 23:40 Platelet Estimate Normal (Normal) 02/01/23 23:40 Giant Platelets Trace 02/01/23 23:40 Macrocytosis Trace 02/01/23 23:40 PT 15.70 SECONDS (12.1-14.9) H 02/01/23 23:40 INR 1.21 (0.8-1.2) H 02/01/23 23:40 APTT 29.5 SECONDS (23.9-36.7) 02/01/23 23:40 Sodium 142 mmol/L (136-145) 02/01/23 23:40 Potassium 4.8 mmol/L (3.5-5.1) 02/01/23 23:40 Chloride 108 mmol/L (98-107) H 02/01/23 23:40 Carbon Dioxide 22 mmol/L (22-29) 02/01/23 23:40 Anion Gap 16.8 (5-19) 02/01/23 23:40 BUN 35 mg/dL (8-23) H 02/01/23 23:40 Creatinine 1.9 mg/dL (0.7-1.2) H 02/01/23 23:40 GFR Calculation Not Reportable 02/01/23 23:40 Glucose 189 mg/dL (65-115) H 02/01/23 23:40 Calculated Osmolality 307 mOsm/kg (285-295) H 02/01/23 23:40 Lactic Acid 1.6 mmol/L (0.5-2.2) 02/01/23 23:40 Calcium 8.7 mg/dL (8.5-10.5) 02/01/23 23:40 Total Bilirubin 0.6 mg/dL (0.15-1.2) 02/01/23 23:40 AST 13 U/L (0-40) 02/01/23 23:40 ALT 10 U/L (0-41) 02/01/23 23:40 Alkaline Phosphatase 47 U/L (40-130) 02/01/23 23:40 Total Protein 6.3 g/dL (6.6-8.7) L 02/01/23 23:40 Albumin 4.1 g/dL (3.5-5.2) 02/01/23 23:40 Globulin 2.2 g/dL (1.3-4.6) 02/01/23 23:40 Discharge Plan Discharge Patient Disposition: Admitted As Inpatient Clinical Impression: Acute appendicitis, Type 2 diabetes mellitus, Peripheral arterial disease, Bilateral carotid artery stenosis, Hx of coronary artery disease Condition: Stable Coding Level of Care Code ED Ground Systems Engineer for Nimesh Matos
[2023-02-02] VITALS (27 sets, daily range): BP systolic 122–160; BP diastolic 49–70; PULSE 68–107; RESP 14–20; TEMP 36.2–37.2; O2SAT 92–100
--- NOTE | 2023-02-02 00:01 | CTR_ITS ---
PROCEDURE INFORMATION: Exam: CT Abdomen And Pelvis With Contrast Exam date and time: 02/02/2023 12:36 AM Age: 82 years old Clinical indication: Abdominal pain; Localized; Prior surgery; Surgery date: 1-6 months; Surgery type: Gb two months ago. Cabg; Patient HX: C/O severe lower abd pain. TECHNIQUE: Imaging protocol: Computed tomography of the abdomen and pelvis with contrast. Radiation optimization: All CT scans at this facility use at least one of these dose optimization techniques: automated exposure control; mA and/or kV adjustment per patient size (includes targeted exams where dose is matched to clinical indication); or iterative reconstruction. Contrast material: OMNI 350; Contrast volume: 75 ml; Contrast route: INTRAVENOUS (IV); REPORTING DATA: Count of CT and Cardiac NM exams in prior 12 months: This patient has received 2 known CTs and 0 known cardiac nuclear medicine studies in the 12 months prior to the current study. COMPARISON: CT abdomen pelvis wo con [id number] 11/02/2022 2:44 PM RADIATION DOSE METRICS: Total DLP (mGy-cm): 560.84 FINDINGS: Heart: Cardiomegaly. Coronary arteries: Coronary artery atherosclerotic calcifications. Liver: Hepatic steatosis. Gallbladder and bile ducts: Cholecystectomy. Pancreas: Normal. No ductal dilation. Spleen: Splenic cyst. Adrenal glands: Normal. No mass. Kidneys and ureters: Bilateral renal cysts, negative for follow up. Stomach and bowel: Diverticulosis without diverticulitis. Appendix: Appendix dilated to 12 mm with wall thickening, surrounding edema and calcified appendicoliths. Intraperitoneal space: Unremarkable. No free air. No significant fluid collection. Vasculature: Unremarkable. No abdominal aortic aneurysm. Lymph nodes: Unremarkable. No enlarged lymph nodes. Urinary bladder: Unremarkable as visualized. Reproductive: Nodular prostate gland enlargement. Bones/joints: L1 vertebral body chronic appearing compression fracture. Soft tissues: Small bilateral left greater than right fat containing inguinal hernias without bowel or inflammation. Other findings: Small amount nonspecific fluid in the pelvis. CT/CT abdomen pelvis w con* [id number] IMPRESSION: 1. Acute appendicitis. 2. Diverticulosis without diverticulitis. 3. Nodular prostate gland enlargement. 4. Small bilateral left greater than right fat containing inguinal hernias without bowel or inflammation. 5. Coronary artery atherosclerotic calcifications. 6. Cardiomegaly. 7. Hepatic steatosis. 8. Cholecystectomy. 9. Splenic cyst. 10. Bilateral renal cysts, negative for follow up. 11. L1 vertebral body chronic appearing compression fracture. 12. Small amount nonspecific fluid in the pelvis. COMMENTS: Consistent with the [employer]'s Incidental Findings Committee white paper (J Am Derek Radiol 2018): Any incidental renal lesion less than 1 cm or classified as too small to characterize, or any incidental cystic renal lesion characterized as simple-appearing, is likely benign. No follow-up imaging is recommended for these lesions per consensus recommendations based on imaging criteria.
[2023-02-02 00:10] LABS: Alanine Aminotransferase 10 U/L (0-41); Albumin Level 4.1 g/dL (3.5-5.2); Alkaline Phosphatase 47 U/L (40-130); Anion Gap 16.8 (5-19); Aspartate Amino Transferase 13 U/L (0-40); Blood Urea Nitrogen 35 mg/dL (8-23); Calcium 8.7 mg/dL (8.5-10.5); Carbon Dioxide 22 mmol/L (22-29); Chloride 108 mmol/L (98-107); Globulin 2.2 g/dL (1.3-4.6); Glucose 189 mg/dL (65-115); Osmolality Calculated 307 mOsm/kg (285-295); Potassium 4.8 mmol/L (3.5-5.1); Sodium 142 mmol/L (136-145); Total Bilirubin 0.6 mg/dL (0.15-1.2); Total Protein 6.3 g/dL (6.6-8.7)
[2023-02-02 00:11] LABS: Absolute Neutrophil 3.8 10^3/cmm (1.4-6.5); Absolute Segmented Neutrophil 3.7 10/cmm (1.6-7.1); Band Neutrophils Absolute 0.2 10^3/cmm (0.0-1.2); Eosinophils 0 %; Giant Platelets Trace; Lymphocytes 7 %; Lymphocytes Absolute 0.3 10^3/cmm (1.2-3.4); Monocytes Absolute 0.1 10^3/cmm (0.1-0.6); Platelet Estimate Normal (Normal); Segmented Neutrophils 87 %; Total Cells Counted 100 (0-100)
[2023-02-02 00:12] LABS: Macrocytosis Trace; Toxic Granulation 1+; Toxic Vacuolation TRACE
[2023-02-02] MEDS: iohexol 350 mg/mL 500 mL Btl (per mL) IV (00:36)
[2023-02-02 00:44] LABS: Lactic Sepsis W/Reflex 1.6 mmol/L (0.5-2.2)
[2023-02-02] MEDS: ondansetron 2 mg/ML SDV 2 mL 4 MG IVP (00:51)
[2023-02-02] MEDS: sodium chloride 0.9% 1,000 ML 999 ML IV (00:52)
[2023-02-02] MEDS: morphine 4 mg/mL SDV 1 mL IVP (01:25)
[2023-02-02] MEDS: piperacillin-tazobactam 3.375 GM in sodium chloride 0.9% (plus) 50 ML IV ×3 (01:26→16:29)
--- NOTE | 2023-02-02 01:38 | ECG_ITS ---
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 Measurements Intervals [place] Rate: 87 P: 52 CA: 174 QRS: -20 QRSD: 95 T: 33 QT: 374 QTc: 451 Interpretive Statements SINUS RHYTHM INCOMPLETE RIGHT BUNDLE BRANCH BLOCK [90+ ms QRS DURATION, TERMINAL R IN V1/V2, 40+ ms S IN I/aVL/V4/V5/V6] POSSIBLE ANTERIOR MYOCARDIAL INFARCTION , OF INDETERMINATE AGE [30 ms Q WAVE IN V3/V4, OR R < 0.2 mV IN V4] No previous ECG available for comparison Electronically Signed On 02-02-2023 6:49:26 CDT by Anuja Loving M.D. [id number]
--- NOTE | 2023-02-02 01:38 | XRR_ITS ---
PROCEDURE INFORMATION: Exam: XR Chest Exam date and time: 02/02/2023 1:41 AM Age: 82 years old Clinical indication: Cough and shortness of breath; Prior surgery; Surgery date: 6+ months; Surgery type: Cabg; Patient HX: Cough and SOB. Pre op for general surgery. ; Additional info: Dyspnea/cough TECHNIQUE: Imaging protocol: Radiologic exam of the chest. Views: 1 view. COMPARISON: CT abdomen pelvis w con* [id number] 02/02/2023 12:36 AM FINDINGS: Lungs: Possible mild left retrocardiac atelectasis or infiltrate. Pleural spaces: Unremarkable. No pleural effusion. No pneumothorax. Heart/Mediastinum: Unremarkable. No cardiomegaly. Bones/joints: Stable sternotomy. Other findings: Postoperative changes over the right shoulder with metallic artifact. Patient rotation to the left. XR/XR chest 1V portable [id number] IMPRESSION: 1. Stable sternotomy. 2. Possible mild left retrocardiac atelectasis or infiltrate.
[2023-02-02 01:52] LABS: INR 1.21 (0.8-1.2)
[2023-02-02 01:53] LABS: Partial Thromboplastin Time 29.5 SECONDS (23.9-36.7)
--- NOTE | 2023-02-02 01:59 | P.CONIM_ITS ---
Providers/Reason For Consult Consulting Physician/Specialty*: Isra Laughlin MD Reason for Consult*: Medical management Requesting Physician: Dr. Soni/Howard Attending Physician: Dr. Soni Primary Care Provider: Naima Logan History of Present Illness History of Present Illness Ck Marcus is a 82 year old male that presents to the emergency department with complaints of abdominal pain for several days, vomiting, chills. He was seen by his primary care provider the day prior. Pain worsened, he became nauseous, and weak. Denies any hematemesis, blood in stool. Last bowel movement yesterday. Has a history of coronary disease, for which she is on Plavix. Had an abnormal nuclear stress test in February 2022 and this was treated medically. An angiogram was contemplated but not performed. He reports in the last month he has had no angina. He has been able to go up a flight of steps without stopping. He had a gallbladder operation, around October without any difficulty. Last p.o. intake around 6 PM. He received some morphine, IV fluids, and a dose of Zosyn in the ER. Review of Systems General: Reports: 10 or more systems reviewed and unremarkable except in HPI and below Card: Denies: chest pain or swelling of feet/ankles Resp: Denies: dyspnea GI: Reports: abdominal pain, nausea and vomiting; Denies: hematochezia or melena Medications/Allergies Home Medications Medication Instructions Recorded Confirmed Last Taken Type calcium polycarbophil 625 mg 625 mg PO DAILY 12/10/19 09/24/22 Unknown History tablet (FiberCon) cholecalciferol (vitamin D3) 50 50 mcg PO DAILY 12/10/19 09/24/22 Unknown History mcg (2,000 unit) capsule citalopram 20 mg tablet (Celexa) 20 mg PO DAILY 12/10/19 09/24/22 Unknown History fluticasone propionate 50 2 spray intranasal DAILY 12/10/19 09/24/22 Unknown History mcg/actuation nasal spray,suspension folic acid 400 mcg tablet 0.4 mg PO DAILY 12/10/19 09/24/22 Unknown History glucosamine HCl 1,500 mg tablet 1,500 mg PO DAILY 12/10/19 09/24/22 Unknown History multivitamin 1 tab PO DAILY 12/10/19 09/24/22 Unknown History tamsulosin 0.4 mg capsule 0.4 mg PO DAILY 12/31/19 09/24/22 Unknown History pantoprazole 40 mg tablet,delayed 40 mg PO DAILY #90 tabs 01/27/20 09/24/22 U nknown Rx release cyanocobalamin (vitamin B-12) 1,000 mcg PO DAILY 06/01/20 09/24/22 Unknown History 1,000 mcg capsule lactobacillus combination no.8 3 3,000 mmu cells PO DAILY 06/01/20 09/24/22 Unknown History billion cell capsule (Adult Probiotic) aspirin 81 mg tablet,delayed 81 mg PO DAILY 05/25/21 09/24/22 Unknown History release (Adult Aspirin Regimen) nitroglycerin 0.4 mg sublingual 0.4 mg sublingual Q5M PRN chest 03/12/22 09/24/22 Unknown Rx tablet pain 30 days #30 tabs amlodipine 5 mg tablet 5 mg PO DAILY HTN #100 tabs 03/20/22 09/24/22 Unknown Rx simvastatin 40 mg tablet 40 mg PO DAILY #90 tabs 04/30/22 09/24/22 Unknown Rx ezetimibe 10 mg tablet 10 mg PO DAILY #100 tabs 05/22/22 09/24/22 Unknown Rx clopidogrel 75 mg tablet See Rx Instructions .Route 05/28/22 09/24/22 Unknown Rx .COMPLEX #100 tabs lisinopril 10 mg tablet 10 mg PO DAILY #100 tabs 06/18/22 09/24/22 Unknown Rx diabetic shoes with 3 sets of #1 ea 06/26/22 09/24/22 Unknown Rx insoles nitroglycerin 0.4 mg sublingual 0.4 mg sublingual Q5M PRN chest 06/26/22 09/24/22 Unknown Rx tablet (Nitrostat) pain #50 tabs fenofibrate nanocrystallized 48 mg See Rx Instructions .Route 08/13/22 09/24/22 Unknown Rx tablet (Tricor) .COMPLEX #90 tabs oxymetazoline 0.05 % nasal spray See Rx Instructions intranasal 09/12/22 09/24/22 Unknown History (Afrin (oxymetazoline)) .COMPLEX PRN vit C 250 mg-vit E 90 mg-zinc 40 1 tab PO BID 09/12/22 09/24/22 Unknown History mg-copper 1 [id number] capsule (PreserVision AREDS-2) custom inserts #1 ea 09/25/22 Unknown Rx hydrocodone 5 mg-acetaminophen 325 1 tab PO Q8H PRN pain #7 tabs 09/29/22 Unknown Rx mg tablet ondansetron 4 mg oral soluble film 4 mg PO DAILY PRN nausea and 09/29/22 Unknown Rx vomiting #10 ea carvedilol 25 mg tablet See Rx Instructions .Route 12/04/22 Unknown Rx .COMPLEX #180 tabs furosemide 40 mg tablet 40 mg PO DAILY 12/26/22 12/26/22 Unknown History hydralazine 100 mg tablet 100 mg PO TID #270 tabs 12/26/22 12/26/22 Unknown Rx Allergies Allergy/AdvReac Type Severity Reaction Status Date / Time No Known Allergies Allergy Verified 12/26/22 09:42 PFSH Acute PFSH: Medical History (Updated 02/02/23 @ 02:08 by Isra Laughlin MD) Atherosclerotic heart disease of [place] coronary artery with other forms of angina pectoris Benign essential HTN Bilateral carotid artery stenosis BPH loc w urin obs/LUTS CAD (coronary artery disease) Chronic kidney disease Diabetes Dyslipidemia (high LDL; low HDL) Elevated PSA Hyperlipidemia Hypertension Surgical History H/O adenoidectomy H/O heart bypass surgery History of common carotid artery stent placement Hx of cataract extraction Hx of tonsillectomy S/P right rotator cuff repair Family History Father , at age 83 Cancer prostate Mother , at age 93 Dementia Brother Cancer Other Hyperlipidemia Denies family history of Diabetes CAD (coronary artery disease) Clotting disorder Chronic kidney disease (CKD) Suicide Anesthesia complication Bleeding disorder Lung disease Stroke Social History Smoking and tobacco status: former smoker Alcohol intake: never Substance/Drug Use: never Adopted: No Caregiver/support person: No Lives independently: No Household members: spouse Marital status: Current occupational status: retired Vitals/I&O/Wt Last Vital Signs Temp 98.1 F 02/01/23 22:18 Pulse 83 02/02/23 00:59 Resp 18 02/02/23 01:25 BP 153/68 02/02/23 00:59 Pulse Ox 92 02/02/23 00:59 O2 Del Method Room Air 02/02/23 00:59 Weight last 48 hrs Weight 72.575 kg Physical Exam Narrative: General exam is a white male, complaining of abdominal discomfort. HEENT: Atraumatic normocephalic. Oropharynx clear Neck is supple no lymphadenopathy thyromegaly Cardiovascular regular rate and rhythm, no murmur Lungs clear but with diminished breath sounds bilaterally Abdomen slight distention. Tenderness, mainly below the umbilicus on both sides. exam deferred Extremities no cyanosis clubbing or edema, cap refill brisk Skin no rash Neuro no focal deficits. Data 02/01/23 23:40 02/01/23 23:40 Micro: Microbiology 02/02/23 01:17 Blood Culture - Preliminary Blood SPECIMEN COLLECTED 02/02/23 01:11 Blood Culture - Preliminary Blood SPECIMEN COLLECTED Other data: EKG which I reviewed demonstrates normal sinus rhythm, left axis deviation, poor R wave progression. There is no evidence of any ST elevation. Flipped T waves noted V2 and V3 but overall deflection is negative as well. Abdominal pelvis CT is most notable for acute diverticulitis. I visualized this as well. No other acute findings. Chest x-ray which I reviewed demonstrates postoperative heart, cardiomegaly, no obvious infiltrate Blood cultures were collected Previous echocardiogram February 2022 demonstrated an EF of 64%, 3/4 diastolic dysfunction, mild mitral valve regurgitation moderate tricuspid valve regur gitation A&P Assessment and plan (1) Acute appendicitis: Patient presents with acute appendicitis Surgical consult underway Keep patient n.p.o. Hydrate with IV fluids. Monitor for fluid overload As he will be getting surgery this morning, hold off on any kind of DVT prophylaxis currently Is able to take p.o., his home medicines will need to be restarted and his Plavix and aspirin restarted as soon as possible following surgery (2) Hx of coronary artery disease: Patient with history of coronary artery disease Past history of abnormal nuclear stress test in 2021. This is being treated medically currently. He has not been excited, no one at an angiogram. His renal function has been an issue as well. He reports over the last 2 months he has not had any angina. He is able to climb a flight of steps without stopping, and not having any chest discomfort. He underwent a cholecystectomy in October without difficulty. Would continue his carvedilol, aspirin, Plavix, statin as soon as he is able to postsurgically I do not have any other way to further optimize him just prior to surgery. (3) Type 2 diabetes mellitus: Sliding scale insulin, mild When diet eventually starts and will need to be consistent carb (4) Hypertension: Recommend restarting his medications after surgery as long as no hypotension. Note that he is on lisinopril, hydralazine, carvedilol, amlodipine (5) Chronic kidney disease: Patient with history of chronic kidney disease BMP daily secondary to fluid shifts, giving IV fluids Plan Multiple other medical problems as outlined in his past medical history Full code SCDs for DVT prophylaxis, with heparin recommended postoperative Protonix for GI prophylaxis Thank you for this consultation. The medicine service will continue to follow along with you. Consult Attestations Medical Necessity Statement: Will need greater than 2 midnight stay for acute appendicitis, multiple comorbidities increasing risk of complication Diagnoses Acute appendicitis K35.80 Hx of coronary artery disease Z86.79 Type 2 diabetes mellitus E11.9 Hypertension I10 Chronic kidney disease N18.9 Time Spent (min) 53
[2023-02-02] MEDS: sodium chloride 0.9% 1,000 ML 75 ML IV (03:18)
[2023-02-02] MEDS: morphine 4 mg/mL SDV 1 mL 2 MG IVP (03:19)
[2023-02-02] MEDS: pantoprazole 40 mg SDV IVP (03:22)
--- OUTSIDE RECORDS SUMMARY | 2023-02-02 06:47 | XMS_ITS | Continuity of Care Document ---
Author Name Unknown Organization [facility] Address [address] [place] [address]- Care Team Providers Care Customer Service Sales Associate Name Role Phone Naima Powers Primary Care Physician Encounter [employer] Number [id number] Date(s): 10/29/22 - 10/31/22 [facility] [address] [place] [address]- Discharge Disposition: .Discharge to Home (Routine) Attending Physician: Emeka Mas MD Allergies, Adverse Reactions, Alerts No Known Allergies Assessment and Plan Future Appointments Appointment Date:11/01/2022 01:45:00 PM Scheduled Provider:CASA Godwin MD Location:-Urology Sp Appointment Type:Hospital Follow Up (New) Appointment Date:11/12/2022 01:45:00 PM Scheduled Provider:Emeka Mas MD Location: Breast Surg Appointment Type:Post-Op Medications amLODIPine 5 mg, By mouth, Daily, Refill(s) 0 Start Date: 10/29/22 Status: Ordered aspirin 81 mg, By mouth, Daily, LAST DOSE 10-28-22, Refill(s) 0 Start Date: 10/29/22 Status: Ordered carvedilol 25 mg, By mouth, BID, Refill(s) 0 Start Date: 10/29/22 Status: Ordered citalopram 20 mg, By mouth, QPM (every evening), Refill(s) 0 Start Date: 10/29/22 Status: Ordered clopidogrel 75 mg, By mouth, Daily, LAST DOSE 10-24-22, Refill(s) 0 Start Date: 10/29/22 Status: Ordered ezetimibe 10 mg, By mouth, QPM (every evening), Refill(s) 0 Start Date: 10/29/22 Status: Ordered fluticasone 27.5 mcg/inh nasal spray Both Nostrils, Daily, Refill(s) 0 Start Date: 10/29/22 Status: Ordered furosemide 40 mg, By mouth, Daily, HOLD MORNING OF SURGERY, Refill(s) 0 Start Date: 10/29/22 Status: Ordered hydrALAZINE 100 mg, By mouth, TID, Refill(s) 0 Start Date: 10/29/22 Status: Ordered Jardiance 10 mg, By mouth, QPM (every evening), LAST DOSE 10-28-22, Refill(s) 0 Start Date: 10/29/22 Status: Ordered lisinopril 10 mg, By mouth, Daily, HOLD MORNING OF SURGERY, Refill(s) 0 Start Date: 10/29/22 Status: Ordered nitroglycerin 0.4 mg, SL, Q5Min, Refill(s) 0 Start Date: 10/29/22 Status: Ordered Protonix 40 mg, By mouth, Daily, 0, 10/29/22 14:50:00 CDT, Substitution Permitted Start Date: 10/29/22 Status: Ordered simvastatin 40 mg, By mouth, QPM (every evening), Refill(s) 0 Start Date: 10/29/22 Status: Ordered tamsulosin 0.4 mg, By mouth, Daily, Refill(s) 0 Start Date: 10/29/22 Status: Ordered Tricor 48 mg, By mouth, QPM (every evening), Refill(s) 0 Start Date: 10/29/22 Status: Ordered Problem List Condition Confirmation Course Effective Dates Status H ealth Status Informant Cholelithiasis Confirmed Active Ex-smoker Confirmed Active patient Major depressive disorder, recurrent episode, in full remission Confirmed Active Procedures Procedure Date Related Diagnosis Body Site Status CABG 2009 Completed CORONARY STENT MOHSEN SHORT 2001 Completed CAROTID ARTERY STENT Comp leted ROTOR CUFF RIGHT X 2 Comp leted TONSILLECTOMY & ADENOIDECTOMY <AGE 11 Completed Social History Social History Type Response Smoking Status Former smoker; Smoke less tobacco use: Never; Has the patient smoked in the last 365 days, even once? No entered on: 10/29/22 Sex Male Patient Care team information Care Team Personnel Name: Naima Powers Position: 2 Restricted Providers Member Role: Primary Care Physician Address: Address: [address] [place] [id number] [place] [address] Name: Emeka Mas MD Position: PX Physician - General Surgery Med Service: General Surgery Member Role: Attending Physician Address: Address: [address] [place] [address]- Care Team Related Persons Name: ALEXIS CINTRON Name: DOUG CINTRON Name: DOUG CINTRON Address: home [address] [place], [place] [id number] [facility] Address: mailing [address] [place], [place] [phone] [facility] Name: ISIAH TOMPKINS Name: ISIAH TOMPKINS
--- OUTSIDE RECORDS SUMMARY | 2023-02-02 06:47 | XMS_ITS | Continuity of Care Document ---
Author Name Unknown Organization [facility] Address [address] [place] [address]- Care Team Providers Care Automobile Rental Agent Name Role Phone Naima Powers Primary Care Physician Encounter [facility] Number [phone] Date(s): 10/30/22 - 10/30/22 [facility] [address] [place] [phone] Encounter Diagnosis Cholelithiasis(Discharge Diagnosis) - 10/30/22 Intra-abdominal adhesions(Discharge Diagnosis) - 10/30/22 Discharge Disposition: .Discharge to Home (Routine) Attending Physician: Emeka Mas MD Admitting Physician: Emeka Mas MD Allergies, Adverse Reactions, Alerts No Known Allergies Assessment and Plan Extracted from: Title:Instructions to Patients Author:Kaitlin Cary RN Date:10/30/22 Gastroenterology Minimally Invasive Cholecystectomy, Care After The following information offers guidance on how to care for yourself after your procedure. Your health care provider may also give you more specific instructions. If you have problems or questions, contact your health care provider. What can I expect after the procedure? After the procedure, it is common to have: ? ? Pain at your incision sites. You will be given medicines to control this pain. ? ? Mild nausea or vomiting. ? ? Bloating and possible shoulder pain from the gas that was used during the procedure. Follow these instructions at home: Medicines ? ? Take gyig-evu-yakwkpv and prescription medicines only as told by your health care provider. ? ? If you were prescribed an antibiotic medicine, take it as told by your health care provider. Do not stop using the antibiotic even if you start to feel better. ? ? Ask your health care provider if the medicine prescribed to you: ? ? Requires you to avoid driving or using machinery. ? ? Can cause constipation. You may need to take these actions to prevent or treat constipation: ? ? Drink enough fluid to keep your urine pale yellow. ? ? Take vpma-iwx-bmvdtwg or prescription medicines. ? ? Eat foods that are high in fiber, such as beans, whole grains, and fresh fruits and vegetables. ? ? Limit foods that are high in fat and processed sugars, such as fried or sweet foods. Incision care ? ? Follow instructions from your health care provider about how to take care of your incisions. Make sure you: ? ? Wash your hands with soap and water for at least 20 seconds before and after you change your bandage (dressing). If soap and water are not available, use hand supervisor production. ? ? Change your dressing as told by your health care provider. ? ? Leave stitches (sutures), skin glue, or adhesive strips in place. These skin closures may need to be in place for 2 weeks or longer. If adhesive strip edges start to loosen and curl up, you may trim the loose edges. Do not remove adhesive strips completely unless your health care provider tells you to do that. ? ? Do not take baths, swim, or use a hot tub until your health care provider approves. Ask your health care provider if you may take showers. You may only be allowed to take sponge baths. ? ? Check your incision area every day for signs of infection. Check for: ? ? More redness, swelling, or pain. ? ? Fluid or blood. ? ? Warmth. ? ? Pus or a bad smell. Activity ? ? Rest as told by your health care provider. Do not do activities that require a lot of effort. ? ? Avoid sitting for a long time without moving. Get up to take short walks every 1? 2 hours. This is important to improve blood flow and breathing. Ask for help if you feel weak or unsteady. ? ? Do not lift anything that is heavier than 10 lb (4.5 kg), or the limit that you are told, until your health care provider says that it is safe. ? ? Do not play contact sports until your health care provider approves. ? ? Do not return to work or school until your health care provider approves. ? ? Return to your normal activities as told by your health care provider. Ask your health care provider what activities are safe for you. General instructions ? ? If you were given a sedative during the procedure, it can affect you for several hours. Do not drive or operate machinery until your health care provider says that it is safe. ? ? Keep all follow-up visits. This is important. Contact a health care provider if: ? ? You develop a rash. ? ? You have more redness, swelling, or pain around your incisions. ? ? You have fluid or blood coming from your incisions. ? ? Your incisions feel warm to the touch. ? ? You have pus or a bad smell coming from your incisions. ? ? You have a fever. ? ? One or more of your incisions breaks open. Get help right away if: ? ? You have trouble breathing. ? ? You have chest pain. ? ? You have more pain in your shoulders. ? ? You faint or feel dizzy when you stand. ? ? You have severe pain in your abdomen. ? ? You have nausea or vomiting that lasts for more than one day. ? ? You have leg pain that is new or unusual, or if it is localized to one specific spot. These symptoms may represent a serious problem that is an emergency. Do not wait to see if the symptoms will go away. Get medical help right away. Call your local emergency services (911 in the [place] Do not drive yourself to the hospital. Summary ? ? After your procedure, it is common to have pain at the incision sites. You may also have nausea or bloating. ? ? Follow your health care provider's instructions about medicine, activity restrictions, and caring for your incision areas. Do not do activities that require a lot of effort. ? ? Contact a health care provider if you have a fever or other signs of infection, such as more redness, swelling, or pain around the incisions. ? ? Get help right away if you have chest pain, increasing pain in the shoulders, or trouble breathing. This information is not intended to replace advice given to you by your health care provider. Make sure you discuss any questions you have with your health care provider. Document Revised: 01/02/2022 Document Reviewed: 01/02/2022 [employer] Patient Education ?? 2021 [employer] Pharmacology General Anesthesia, Adult, Care After This sheet gives you information about how to care for yourself after your procedure. Your health care provider may also give you more specific instructions. If you have problems or questions, contact your health care provider. What can I expect after the procedure? After the procedure, the following side effects are common: ? ? Pain or discomfort at the IV site. ? ? Nausea. ? ? Vomiting. ? ? Sore throat. ? ? Trouble concentrating. ? ? Feeling cold or chills. ? ? Feeling weak or tired. ? ? Sleepiness and fatigue. ? ? Soreness and body aches. These side effects can affect parts of the body that were not involved in surgery. Follow these instructions at home: For the time period you were told by your health care provider: ? ? Rest. ? ? Do not participate in activities where you could fall or become injured. ? ? Do not drive or use machinery. ? ? Do not drink alcohol. ? ? Do not take sleeping pills or medicines that cause drowsiness. ? ? Do not make important decisions or sign legal documents. ? ? Do not take care of children on your own. Eating and drinking ? ? Follow any instructions from your health care provider about eating or drinking restrictions. ? ? When you feel hungry, start by eating small amounts of foods that are soft and easy to digest (bland), such as toast. Gradually return to your regular diet. ? ? Drink enough fluid to keep your urine pale yellow. ? ? If you vomit, rehydrate by drinking water, juice, or clear broth. General instructions ? ? If you have sleep apnea, surgery and certain medicines can increase your risk for breathing problems. Follow instructions from your health care provider about wearing your sleep device: ? ? Anytime you are sleeping, including during daytime naps. ? ? While taking prescription pain medicines, sleeping medicines, or medicines that make you drowsy. ? ? Have a responsible adult stay with you for the time you are told. It is important to have someone help care for you until you are awake and alert. ? ? Return to your normal activities as told by your health care provider. Ask your health care provider what activities are safe for you. ? ? Take shyx-ymw-wopikxg and prescription medicines only as told by your health care provider. ? ? If you smoke, do not smoke without supervision. ? ? Keep all follow-up visits as told by your health care provider. This is important. Contact a health care provider if: ? ? You have nausea or vomiting that does not get better with medicine. ? ? You cannot eat or drink without vomiting. ? ? You have pain that does not get better with medicine. ? ? You are unable to pass urine. ? ? You develop a skin rash. ? ? You have a fever. ? ? You have redness around your IV site that gets worse. Get help right away if: ? ? You have difficulty breathing. ? ? You have chest pain. ? ? You have blood in your urine or stool, or you vomit blood. Summary ? ? After the procedure, it is common to have a sore throat or nausea. It is also common to feel tired. ? ? Have a responsible adult stay with you for the time you are told. It is important to have someone help care for you until you are awake and alert. ? ? When you feel hungry, start by eating small amounts of foods that are soft and easy to digest (bland), such as toast. Gradually return to your regular diet. ? ? Drink enough fluid to keep your urine pale yellow. ? ? Return to your normal activities as told by your health care provider. Ask your health care provider what activities are safe for you. This information is not intended to replace advice given to you by your health care provider. Make sure you discuss any questions you have with your health care provider. Document Revised: 03/16/2021 Document Reviewed: 10/13/2020 [employer] Patient Education ?? 2021 [employer]. Future Appointments Appointment Date:11/12/2022 01:45:00 PM Scheduled Provider:Emeka Mas [...] Procedure Date Related Diagnosis Body Site Status LAPAROSCOPY ENTEROLYSIS SEPA RATE PROCEDURE 10/30/22 Completed LAPAROSCOPY SURG CHOLECYSTECTOMY 10/30/22 Completed CABG 2009 Completed CORONARY STENT HOWES CAVE DR. SHORT 2001 Completed CAROTID ARTERY STENT Comp leted ROTOR CUFF RIGHT X 2 Comp leted TONSILLECTOMY & ADENOIDECTOMY <AGE 12 Completed Results Laboratory List Name Date BMP 10/30/22 Hemogram 10/30/22 Most recent to oldest [Reference Range]: 1 2 Bedside Glucose 132 mg/dL 1 (10/30/22 11:23 AM) 104 mg/dL 2 (10/30/22 7:39 AM) Anion Gap [2-15 mEq/L] 6 mEq/L (10/30/22 7:07 AM) Glucose, Serum/Plasma [70-100 mg/dL] 112 mg/dL *HI* (10/30/22 7:07 AM) WBC [4.8-10.8 Thous/mm3] 5.2 Thous/mm3 (10/30/22: AM) Hct [42.0-52.0 %] 32.5 % *LOW* (10/30/22: AM) Hgb [14.0-18.0 g/dL] 10.3 g/dL *LOW* (10/30/22: AM) RBC [4.60-6.20 Million/mm3] 3.34 Million /mm3 *LOW* (10/30/22 7: AM) MCV [80.0-100.0 fl] 97.3 fl (10/30/22 AM) MCH [26.0-34.0 pg] 30.8 pg (10/30/22: AM) MCHC [31.0-36.5 g/dL] 31.7 g/dL (10/30/22: AM) RDW [10.4-14.4 %] 16.9 % *HI* (10/30/22 7: AM) Platelets [130-440 Thous/mm3] 171 Thous/ mm3 (10/30/22 7: AM) MPV [9.4-12.4 fl] 10.1 fl (10/30/22 7: AM) Sodium [136-145 mEq/L] 141 mEq/L (10/30/22 7: AM) Potassium [3.5-5.1 mEq/L] 4.6 mEq/L (10/30/22 7: AM) Chloride [98-107 mEq/L] 110 mEq/L *HI* (10/30/22 7: AM) CO2 [21-32 mEq/L] 25 mEq/L (10/30/22 7:07 AM) BUN [7-18 mg/dL] 51 mg/dL *HI* (10/30/22 7:07 AM) Creatinine [0.73-1.18 mg/dL] 2.58 mg/dL *HI* (10/30/22 7:07 AM) Calcium [8.3-10.6 mg/dL] 8.5 mg/dL (10/30/22 7:07 AM) eGFR [>=60 mL/min/1.73 m2] 24 mL/min/1.7 3 m2 *LOW* (10/30/22 7:07 AM) eGFR if [>= 60 mL/min/1.73 m2] 29 mL/min/1.73 m2 *LOW* (10/30/22 7:07 AM) 1Result Comment: Performed at:[facility], [address] [place] [address], [id number] Reference Ranges: Age 0 - 24 hours: 45 - 115 mg/dL Age 24 hours - 30 days: 55 - 115 mg/dL Age > 30 days: 70 - 100 mg/dL Critical Results Requiring Immediate Notification: Age <72 Hours: <40 or >350 mg/dL Age >72 Hours: <50 or >400 mg/dL 2Result Comment: Performed at:[facility], [facility] [place], [address] Reference Ranges: Age 0 - 24 hours: 45 - 115 mg/dL Age 24 hours - 30 days: 55 - 115 mg/dL Age > 30 days: 70 - 100 mg/dL Critical Results Requiring Immediate Notification: Age <72 Hours: <40 or >350 mg/dL Age >72 Hours: <50 or >400 mg/dL Vital Signs Most recent to oldest [Reference Range]: 1 2 3 Blood Pressure 115/56mmHg (10/30/22 1:34 PM) 120/62mmHg (10/30/22 1:18 PM) 119/51mmHg (10/30/22 1:04 PM) Height (inches) (Clinical) 66 in (10/30/22 7:02 AM) Weight (kg) (Clinical) 71.8 kg (10/30/22 7:02 AM) BMI (Clinical) 25.5 kg/m2 (10/30/22 7:02 AM) Scale Type Bed (10/30/22 7:02 AM) Social History Social History Type Response Smoking Status Former smoker; Smoke less tobacco use: Never; Has the patient smoked in the last 365 days, even once? No entered on: 10/29/22 Sex Male Hospital Discharge Instructions Patient Education 10/30/2022 17:26:14 Indwelling Urinary Catheter Care, Adult Indwelling Urinary Catheter Care, Adult An indwelling urinary catheter is a thin, flexible, germ-free (sterile) tube that is placed into the bladder to help drain urine out of the body. The catheter is inserted into the part of the body that drains urine from the bladder (urethra). Urine drains from the catheter into a drainage bag outside of the body. Taking good care of your catheter will keep it working properly and help to prevent problems from developing. What are the risks? Bacteria may get into your bladder and cause a urinary tract infection. ??? Urine flow can become blocked. This can happen if the catheter is not working correctly, or if you have sediment or a blood clot in your bladder or the catheter. ??? Tissue near the catheter may become irritated and bleed. How to wear your catheter and your drainage bag Supplies needed ??? Adhesive tape or a leg strap. ??? Alcohol wipe or soap and water (if you use tape). ??? A clean towel (if you use tape). ??? Overnight drainage bag. ??? Smaller drainage bag (leg bag). Wearing your catheter and bag Use adhesive tape or a leg strap to attach your catheter to your leg. ??? Make sure the catheter is not pulled tight. ??? If a leg strap gets wet, replace it with a dry one. ??? If you use adhesive tape: 1. Use an alcohol wipe or soap and water to wash off any stickiness on your skin where you had tapebefore. 2. Use a clean towel to pat-dry the area. 3. Apply the new tape. You should have received a large overnight drainage bag and a smaller leg bag that fits underneath clothing. ??? You may wear the overnight bag at any time, but you should not wear the leg bag at night. ??? Always wear the leg bag below your knee. ??? Make sure the overnight drainage bag is always lower than the level of your bladder, but do notlet it touch the floor. Before you go to sleep, hang the bag inside a wastebasket that is covered by a clean plastic bag. How to care for your skin around the catheter Supplies needed ??? A clean washcloth. ??? Water and mild soap. ??? A clean towel. Caring for your skin and catheter ??? Every day, use a clean washcloth and soapy water to clean the skin around your catheter. 1. Wash your hands with soap and water. 2. Wet a washcloth in warm water and mild soap. 3. Clean the skin around your urethra. ??? If you are female: ??? Use one hand to gently spread the folds of skin around your vagina (labia). ??? With the washcloth in your other hand, wipe the inner side of your labia on each side. Do this in a cazab-te-beom direction. ??? If you are male: ??? Use one hand to pull back any skin that covers the end of your penis (foreskin). ??? With the washcloth in your other hand, wipe your penis in small circles. Start wiping at the tip of your penis, then move outward from the catheter. ??? Move the foreskin back in place, if this applies. 4. With your free hand, hold the catheter close to where it enters your body. Keep holding the catheter during cleaning so it does not get pulled out. 5. Use your other hand to clean the catheter with the washcloth. ??? Only wipe downward on the catheter, toward the bag. ??? Do not wipe upward toward your body, because that may push bacteria into your urethra and causeinfection. 6. Use a clean towel to pat-dry the catheter and the skin around it. Make sure to wipe off all soap. 7. Wash your hands with soap and water. ??? Shower every day. Do not take baths. ??? Do not use cream, ointment, or lotion on the area where the catheter enters your body, unless your health care provider tells you to do that. ??? Do not use powders, sprays, or lotions on your genital area. ??? Check your skin around the catheter every day for signs of infection. Check for: ??? Redness, swelling, or pain. ??? Fluid or blood. ??? Warmth. ??? Pus or a bad smell. How to empty the drainage bag Supplies needed ??? Rubbing alcohol. ??? Gauze pad or cotton ball. ??? Adhesive tape or a leg strap. Emptying the bag Empty your drainage bag (your overnight drainage bag or your leg bag) when it is ? full, or at least 2???3 times a day. Clean the drainage bag according to the robotic weld technician's instructions or as told by your health care provider. 1. Wash your hands with soap and water. 2. Detach the drainage bag from your leg. 3. Hold the drainage bag over the toilet or a clean container. Make sure the drainage bag is lower than your hips and bladder. This stops urine from going back into the tubing and into your bladder. 4. Open the pour spout at the bottom of the bag. 5. Empty the urine into the toilet or container. Do not let the pour spout touch any surface. This precaution is important to prevent bacteria from getting in the bag and causing infection. 6. Apply rubbing alcohol to a gauze pad or cotton ball. 7. Use the gauze pad or cotton ball to clean the pour spout. 8. Close the pour spout. 9. Attach the bag to your leg with adhesive tape or a leg strap. 10. Wash your hands with soap and water. How to change the drainage bag Supplies needed: ??? Alcohol wipes. ??? A clean drainage bag. ??? Adhesive tape or a leg strap. Changing the bag Replace your drainage bag with a clean bag if it leaks, starts to smell bad, or looks dirty. 1. Wash your hands with soap and water. 2. Detach the dirty drainage bag from your leg. 3. Pinch the catheter with your fingers so that urine does not spill out. 4. Disconnect the catheter tube from the drainage tube at the connection valve. Do not let the tubes touch any surface. 5. Clean the end of the catheter tube with an alcohol wipe. Use a different alcohol wipe to clean the end of the drainage tube. 6. Connect the catheter tube to the drainage tube of the clean bag. 7. Attach the clean bag to your leg with adhesive tape or a leg strap. Avoid attaching the new bag too tightly. 8. Wash your hands with soap and water. General instructions ??? Never pull on your catheter or try to remove it. Pulling can damage your internal tissues. ??? Always wash your hands before and after you handle your catheter or drainage bag. Use a mild, fragrance-free soap. If soap and water are not available, use hand supervisor production. ??? Always make sure there are no twists or bends (kinks) in the catheter tube. ??? Always make sure there are no leaks in the catheter or drainage bag. ??? Drink enough fluid to keep your urine pale yellow. ??? Do not take baths, swim, or use a hot tub. ??? If you are female, wipe from front to back after having a bowel movement. Contact a health care provider if: ??? Your urine is cloudy. ??? Your urine smells unusually bad. ??? Your catheter gets clogged. ??? Your catheter starts to leak. ??? Your bladder feels full. Get help right away if: ??? You have redness, swelling, or pain where the catheter enters your body. ??? You have fluid, blood, pus, or a bad smell coming from the area where the catheter enters your body. ??? The area where the catheter enters your body feels warm to the touch. ??? You have a fever. ??? You have pain in your abdomen, legs, lower back, or bladder. ??? You see blood in the catheter. ??? Your urine is pink or red. ??? You have nausea, vomiting, or chills. ??? Your urine is not draining into the bag. ??? Your catheter gets pulled out. Summary ??? An indwelling urinary catheter is a thin, flexible, germ-free (sterile) tube that is placed into the bladder to help drain urine out of the body. ??? The catheter is inserted into the part of the body that drains urine from the bladder (urethra). ??? Take good care of your catheter to keep it working properly and help prevent problems from developing. ??? Always wash your hands before and after you handle your catheter or drainage bag. ??? Never pull on your catheter or try to remove it. This information is not intended to replace advice given to you by your health care provider. Make sure you discuss any questions you have with your health care provider. Document Revised: 09/20/2021 Document Reviewed: 06/16/2021 [employer] Patient Education ?? 2021 [employer] 10/30/2022 11:54:48 General Anesthesia, Adult, Care After General Anesthesia, Adult, Care After This sheet gives you information about how to care for yourself after your procedure. Your health care provider may also give you more specific instructions. If you have problems or questions, contact your health care provider. What can I expect after the procedure? After the procedure, the following side effects are common: ??? Pain or discomfort at the IV site. ??? Nausea. ??? Vomiting. ??? Sore throat. ??? Trouble concentrating. ??? Feeling cold or chills. ??? Feeling weak or tired. ??? Sleepiness and fatigue. ??? Soreness and body aches. These side effects can affect parts of the body that were not involvedin surgery. Follow these instructions at home: For the time period you were told by your health care provider: ??? Rest. ??? Do not participate in activities where you could fall or become injured. ??? Do not drive or use machinery. ??? Do not drink alcohol. ??? Do not take sleeping pills or medicines that cause drowsiness. ??? Do not make important decisions or sign legal documents. ??? Do not take care of children on your own. Eating and drinking ??? Follow any instructions from your health care provider about eating or drinking restrictions. ??? When you feel hungry, start by eating small amounts of foods that are soft and easy to digest (bland), such as toast. Gradually return to your regular diet. ??? Drink enough fluid to keep your urine pale yellow. ??? If you vomit, rehydrate by drinking water, juice, or clear broth. General instructions ??? If you have sleep apnea, surgery and certain medicines can increase your risk for breathing problems. Follow instructions from your health care provider about wearing your sleep device: ??? Anytime you are sleeping, including during daytime naps. ??? While taking prescription pain medicines, sleeping medicines, or medicines that make you drowsy. ??? Have a responsible adult stay with you for the time you are told. It is important to have someone help care for you until you are awake and alert. ??? Return to your normal activities as told by your health care provider. Ask your health care provider what activities are safe for you. ??? Take ehyg-kdi-ritdmom and prescription medicines only as told by your health care provider. ??? If you smoke, do not smoke without supervision. ??? Keep all follow-up visits as told by your health care provider. This is important. Contact a health care provider if: ??? You have nausea or vomiting that does not get better with medicine. ??? You cannot eat or drink without vomiting. ??? You have pain that does not get better with medicine. ??? You are unable to pass urine. ??? You develop a skin rash. ??? You have a fever. ??? You have redness around your IV site that gets worse. Get help right away if: ??? You have difficulty breathing. ??? You have chest pain. ??? You have blood in your urine or stool, or you vomit blood. Summary ??? After the procedure, it is common to have a sore throat or nausea. It is also common to feel tired. ??? Have a responsible adult stay with you for the time you are told. It is important to have someone help care for you until you are awake and alert. ??? When you feel hungry, start by eating small amounts of foods that are soft and easy to digest (bland), such as toast. Gradually return to your regular diet. ??? Drink enough fluid to keep your urine pale yellow. ??? Return to your normal activities as told by your health care provider. Ask your health care provider what activities are safe for you. This information is not intended to replace advice given to you by your health care provider. Make sure you discuss any questions you have with your health care provider. Document Revised: 03/16/2021 Document Reviewed: 10/13/2020 [employer] Patient Education ?? 2021 [employer] 10/30/2022 11:54:48 Minimally Invasive Cholecystectomy, Care After Minimally Invasive Cholecystectomy, Care After The following information offers guidance on how to care for yourself after your procedure. Your health care provider may also give you more specific instructions. If you have problems or questions, contact your health care provider. What can I expect after the procedure? After the procedure, it is common to have: ??? Pain at your incision sites. You will be given medicines to control this pain. ??? Mild nausea or vomiting. ??? Bloating and possible shoulder pain from the gas that was used during the procedure. Follow these instructions at home: Medicines ??? Take khmu-xpe-qtunocu and prescription medicines only as told by your health care provider. ??? If you were prescribed an antibiotic medicine, take it as told by your health care provider. Donot stop using the antibiotic even if you start to feel better. ??? Ask your health care provider if the medicine prescribed to you: ??? Requires you to avoid driving or using machinery. ??? Can cause constipation. You may need to take these actions to prevent or treat constipation: ??? Drink enough fluid to keep your urine pale yellow. ??? Take dtcb-xki-emuzntq or prescription medicines. ??? Eat foods that are high in fiber, such as beans, whole grains, and fresh fruits and vegetables. ??? Limit foods that are high in fat and processed sugars, such as fried or sweet foods. Incision care ??? Follow instructions from your health care provider about how to take care of your incisions. Make sure you: ??? Wash your hands with soap and water for at least 20 seconds before and after you change your bandage (dressing). If soap and water are not available, use hand supervisor production. ??? Change your dressing as told by your health care provider. ??? Leave stitches (sutures), skin glue, or adhesive strips in place. These skin closures may need to be in place for 2 weeks or longer. If adhesive strip edges start to loosen and curl up, you may trim the loose edges. Do not remove adhesive strips completely unless your health care provider tellsyou to do that. ??? Do not take baths, swim, or use a hot tub until your health care provider approves. Ask your health care provider if you may take showers. You may only be allowed to take sponge baths. ??? Check your incision area every day for signs of infection. Check for: ??? More redness, swelling, or pain. ??? Fluid or blood. ??? Warmth. ??? Pus or a bad smell. Activity ??? Rest as told by your health care provider. Do not do activities that require a lot of effort. ??? Avoid sitting for a long time without moving. Get up to take short walks every 1???2 hours. This is important to improve blood flow and breathing. Ask for help if you feel weak or unsteady. ??? Do not lift anything that is heavier than 10 lb (4.5 kg), or the limit that you are told, untilyour health care provider says that it is safe. ??? Do not play contact sports until your health care provider approves. ??? Do not return to work or school until your health care provider approves. ??? Return to your normal activities as told by your health care provider. Ask your health care provider what activities are safe for you. General instructions ??? If you were given a sedative during the procedure, it can affect you for several hours. Do not drive or operate machinery until your health care provider says that it is safe. ??? Keep all follow-up visits. This is important. Contact a health care provider if: ??? You develop a rash. ??? You have more redness, swelling, or pain around your incisions. ??? You have fluid or blood coming from your incisions. ??? Your incisions feel warm to the touch. ??? You have pus or a bad smell coming from your incisions. ??? You have a fever. ??? One or more of your incisions breaks open. Get help right away if: ??? You have trouble breathing. ??? You have chest pain. ??? You have more pain in your shoulders. ??? You faint or feel dizzy when you stand. ??? You have severe pain in your abdomen. ??? You have nausea or vomiting that lasts for more than one day. ??? You have leg pain that is new or unusual, or if it is localized to one specific spot. These symptoms may represent a serious problem that is an emergency. Do not wait to see if the symptoms will go away. Get medical help right away. Call your local emergency services (911 in the [place] Do not drive yourself to the hospital. Summary ??? After your procedure, it is common to have pain at the incision sites. You may also have nauseaor bloating. ??? Follow your health care provider's instructions about medicine, activity restrictions, and caring for your incision areas. Do not do activities that require a lot of effort. ??? Contact a health care provider if you have a fever or other signs of infection, such as more redness, swelling, or pain around the incisions. ??? Get help right away if you have chest pain, increasing pain in the shoulders, or trouble breathing. This information is not intended to replace advice given to you by your health care provider. Make sure you discuss any questions you have with your health care provider. Document Revised: 01/02/2022 Document Reviewed: 01/02/2022 [employer] Patient Education ?? 2021 [employer] Follow Up Care 10/23/2022 14:07:37 With:Emeka Mas Address: [address] [place] [id number]- [facility] (1) When:11/12/2022 Surgical operation note * Emeka Mas MD: PERFORM, SIGN, VERIFY Event Display: Operative Report Authored Date: Patient: EMEKA CINTRON Age: 81 years Sex: Male : 1940 Associated Diagnoses: None Author: Emeka Mas MD Postoperative Information Date/ Time: 10/30/2022 13:09:00 Preoperative Diagnosis: Preop Dx () SN - GCD - Preop Diagnosis: Cholelithiasis (10/30/22 09:55:07). Postoperative Diagnosis: Postop Dx () SN - GCD - Post Op Diagnosis: Cholelithiasis (10/30/22 09:55:07). Procedure: Procedure (ST) SN - SgP - Procedure: Laparoscopic Cholecystectomy (10/30/22). Performed by: Primary Surgeon (ST) Surgeon - Primary: Emeka Mas MD . Last Inserter: Physician's Last Inserter () Physician's Last Inserter: Leslie Briscoe Anesthetic Used: Anesthesia Type (ST) SN - SgP - Anesthesia Type: 3-General (10/30/22). Findings: INDICATIONS: The patient is a 81 old patient with Gallbladder disease. After discussing the risks, options, and alternatives regarding definitive surgery, they wanted to proceed with laparoscopic cholecystectomy. DESCRIPTION OF PROCEDURE: The patient had the area prepped and draped in sterile fashion. Leslie Dickens, my PA, was in the room and scrubbed during opening and closing and critical parts of the procedure including retraction. Local was infiltrated just above the umbilicus. A 5 mm incision was made. Veress needle was placed, confirmed intraabdominal saline drop and pressure checks. We then insufflated to 15 mmHg CO2 pressure. After insufflation, I passed a 5 mm trocar, passed the camera through the trocar, carefully looked around to ensure we injured no structures. During placement of initial trocar, there were no injuries. Under direct vision, we placed three additional trocars (2 5 mm and an 11 mm) and explored the upper abdomen. The only gross abnormality was a thickened gallbladder and marked inflammation around it. Indeed I began lysis of adhesions from dense omental adhesions to the gallbladder and liver and including some transverse colon hepatic flexure also densely disease within the omental. I used both electrocautery and some sharp dissection in spent approximately 45 minutes incompletely clearing off the gallbladder and establishing space 0 a conform the lap choly. Atthis point I did have good visualization of the gallbladder. We grasped it, pulled in a cephalad direction, carefully dissecting the area of triangle of Calot, definitively identified the cystic ductand artery directly on the gallbladder, double clipped these proximal, single clipped distal and cut these structures, used electrocautery to remove the gallbladder from liver bed, pulled out throughxiphoid incision, opened on the back table showed stones. Looked back in, irrigated, suctioned out irrigant and had good hemostasis. Clips were intact on the cystic duct and artery. I closed the 11 mm trocar site at the fascial level with 0 Vicryl and Endoclose. Removed the trocars under direct vision. Ultimately, we desufflated. We closed all skin incisions with 4-0 Monocryl subcuticular. Steri-Strips and dressings were placed. The patient tolerated the procedure quite well. Estimated blood loss less than 100 mL. Needle, sponge and instrument counts again reported correct x2 at the conclusion. . Specimens Removed: Specimens (ST) SN - CS - Specimen Description: Gallbladder (10/30/22 10:04:27). Estimated Blood Loss: 100 ml. Complications: None. Description of Techniques: Standard. Implants/Grafts: Implant (ST) No Implants/Grafts Used. Final Count Verification: SN - FCV (ST) SN - FCV - Instruments (Count Correct): n/a (10/30/22 11:03:11) SN - FCV - Sharps/Wilmot (Count Corre: Yes (10/30/22 11:03:11) SN - FCV - Sponges (Count Correct): Yes (10/30/22 11:03:11). Electronically signed by:Emeka Mas MD 10/30/22 13:12 Note * Tato HALE, Uriel D: SIGN, VERIFY Event Display: EKG 12-Lead Authored Date: [id number] Patient Care team information Care Team Personnel Name: Naima Powers Position: 2 Restricted Providers Member Role: Primary Care Physician Address: Address: [address] [place] [address] Care Team Related Persons Name: DOUG CINTRON Address: home [address] [place] [phone] [facility] Address: mailing [address] [place] [phone] [place] Name: ISIAH TOMPKINS
--- OUTSIDE RECORDS SUMMARY | 2023-02-02 06:47 | XMS_ITS | Continuity of Care Document ---
Author Name Unknown Organization [id number] Address [address] [place] [address]- Care Team Providers Care Occupational Health Nurse Supervisor Name Role Phone Naima Powers Primary Care Physician Encounter 11/01/22 - 11/02/22 [id number] [address] [place] [address]- [place] Encounter Diagnosis Urinary retention(Discharge Diagnosis) - 11/01/22 Attending Physician: CASA Godwin MD Allergies, Adverse Reactions, Alerts No Known Allergies Assessment and Plan Future Appointments Appointment Date:11/12/2022 01:45:00 PM Scheduled [...] recurrent episode, in full remission Confirmed Active Urinary retention Confirmed Active Procedures Procedure Date Related Diagnosis Body Site Status CABG 2009 Completed CORONARY STENT GRAND CHAIN DR. SHORT 2001 Completed CAROTID ARTERY STENT Comp leted ROTOR CUFF RIGHT X 2 Comp leted TONSILLECTOMY & ADENOIDECTOMY <AGE 11 Completed Vital Signs Most recent to oldest [Reference Range]: 1 Height (inches) (Clinical) 66 in (11/01/22 1:27 PM) BMI (Clinical) 0 kg/m2 (11/01/22 1:27 PM) Social History Social History Type Response Smoking Status Former smoker; Smoke less tobacco use: Never; Has the patient smoked in the last 365 days, even once? No entered on: 10/29/22 Sex Male Patient Care team information Care Team Personnel Name: Naima Powers Position: 2 Restricted Providers Member Role: Primary Care Physician Address: Address: [address] [place] [address]- [place] Name: CASA Godwin MD Position: PX Physician - Urology Med Service: Urology Member Role: Attending Physician Address: Address: [address] [place] [id number]- [place] Care Team Related Persons Name: ALEXIS CINTRON Name: DOUG CINTRON Name: DOUG CINTRON Address: home [address] [place], [place] [phone] [facility] Address: mailing [address] [place], [place] [phone] [facility] Name: ISIAH TOMPKINS Name: ISIAH TOMPKINS
[2023-02-02 07:06] LABS: Glucose Point of Care 119 mg/dL (70-110)
--- NOTE | 2023-02-02 09:01 | P.HP_ITS ---
Providers/Chief Complaint Admitting Physician: Isra Laughlin MD Primary Care Provider: Naima Logan Chief Complaint: ABD Pain History of Present Illness kC Marcus is a 82 year old male presents to the hospital with a 2-day history of right lower quadrant abdominal pain nausea and vomiting. He reports feeling chills. The pain is sharp and constant. Palpation makes pain worse. Nothing makes pain better. The pain does radiate to the opposite side of his abdomen. He denies any hematemesis, diarrhea, constipation, hematochezia and/or melena. He had a laparoscopic cholecystectomy a few months ago. In the ER he was found to have a normal white blood cell count and was vitally stable, but a CT of the abdomen pelvis showed edema around the appendix with wall thickening of the appendix, consistent with acute appendicitis. Review of Systems General: Reports: 10 or more systems reviewed and unremarkable except in HPI and below Medications/Allergies Home Medications Medication Instructions Recorded Confirmed Last Taken Type cholecalciferol (vitamin D3) 50 50 mcg PO DAILY 12/10/19 02/02/23 Unknown Histor y mcg (2,000 unit) capsule citalopram 20 mg tablet (Celexa) 20 mg PO DAILY 12/10/19 02/02/23 Unknown History fluticasone propionate 50 2 spray intranasal DAILY 12/10/19 02/02/23 Unknown History mcg/actuation nasal spray,suspension folic acid 400 mcg tablet 0.4 mg PO DAILY 12/10/19 02/02/23 Unknown History glucosamine HCl 1,500 mg tablet 1,500 mg PO DAILY 12/10/19 02/02/23 Unknown History multivitamin 1 tab PO DAILY 12/10/19 02/02/23 Unknown History tamsulosin 0.4 mg capsule 0.4 mg PO DAILY 12/31/19 02/02/23 Unknown History pantoprazole 40 mg tablet,delayed 40 mg PO DAILY #90 tabs 01/27/20 02/02/23 Unknown Rx release lactobacillus combination no.8 3 3,000 mmu cells PO DAILY 06/01/20 02/02/23 Unknown History billion cell capsule (Adult Probiotic) aspirin 81 mg tablet,delayed 81 mg PO DAILY 05/25/21 02/02/23 Unknown History release (Adult Aspirin Regimen) nitroglycerin 0.4 mg sublingual 0.4 mg sublingual Q5M PRN chest 03/12/22 02/02/23 Unknown Rx tablet pain 30 days #30 tabs amlodipine 5 mg tablet 5 mg PO DAILY HTN #100 tabs 03/20/22 02/02/23 Unknown Rx simvastatin 40 mg tablet 40 mg PO DAILY #90 tabs 04/30/22 02/02/23 Unknown Rx ezetimibe 10 mg tablet 10 mg PO DAILY #100 tabs 05/22/22 02/02/23 Unknown Rx clopidogrel 75 mg tablet See Rx Instructions .Route 05/28/22 02/02/23 Unknown Rx .COMPLEX #100 tabs lisinopril 10 mg tablet 10 mg PO DAILY #100 tabs 06/18/22 02/02/23 Unknown Rx diabetic shoes with 3 sets of #1 ea 06/26/22 02/02/23 Unknown Rx insoles fenofibrate nanocrystallized 48 mg See Rx Instructions .Route 08/13/22 02/02/23 Unknown Rx tablet (Tricor) .COMPLEX #90 tabs oxymetazoline 0.05 % nasal spray See Rx Instructions intranasal 09/12/22 02/02/23 Unknown History (Afrin (oxymetazoline)) .COMPLEX PRN Nasal Congestion vit C 250 mg-vit E 90 mg-zinc 40 1 tab PO BID 09/12/22 02/02/23 Unknown History mg-copper 1 md-yjxtsl-rbuuyq capsule (PreserVision AREDS-2) custom inserts #1 ea 09/25/22 02/02/23 Unknown Rx hydrocodone 5 mg-acetaminophen 325 1 tab PO Q8H PRN pain #7 tabs 09/29/22 02/02/23 Unknown Rx mg tablet ondansetron 4 mg oral soluble film 4 mg PO DAILY PRN nausea and 09/29/22 02/02/23 Unknown Rx vomiting #10 ea furosemide 40 mg tablet 40 mg PO DAILY 12/26/22 02/02/23 Unknown History hydralazine 100 mg tablet 100 mg PO TID #270 tabs 12/26/22 02/02/23 Unknown Rx carvedilol 25 mg tablet 25 mg PO DAILY 02/02/23 02/02/23 Unknown History Allergies Allergy/AdvReac Type Severity Reaction Status Date / Time No Known Allergies Allergy Verified 12/26/22 09:42 PFSH Acute PFSH: Medical History Atherosclerotic heart disease of [place] coronary artery with other forms of angina pectoris Benign essential HTN Bilateral carotid artery stenosis BPH loc w urin obs/LUTS CAD (coronary artery disease) Chronic kidney disease Diabetes Dyslipidemia (high LDL; low HDL) Elevated PSA Hyperlipidemia Hypertension Surgical History H/O adenoidectomy H/O heart bypass surgery History of common carotid artery stent placement Hx of cataract extraction Hx of tonsillectomy S/P right rotator cuff repair Family History Father , at age 83 Cancer prostate Mother , at age 93 Dementia Brother Cancer Other Hyperlipidemia Denies family history of Diabetes CAD (coronary artery disease) Clotting disorder Chronic kidney disease (CKD) Suicide Anesthesia complication Bleeding disorder Lung disease Stroke Social History Smoking and tobacco status: former smoker Alcohol intake: never Substance/Drug Use: never Adopted: No Caregiver/support person: No Lives independently: No Household members: spouse Marital status: Current occupational status: retired Vitals/I&O/Wt Last Vital Signs Temp 98.9 F 02/02/23 07:16 Pulse 75 02/02/23 07:16 Resp 16 02/02/23 07:16 BP 124/70 02/02/23 07:16 Pulse Ox 95 02/02/23 07:16 O2 Del Method Nasal Cannula 02/02/23 07:16 O2 Flow Rate 0.5 02/02/23 08:00 02/01/23 02/02/23 02/02/23 22:59 06:59 14:59 Intake Total 1050 / 1050 Balance 1050 / 1050 Weight last 48 hrs Weight 160 lb Physical Exam Narrative: General : Patient is well developed , no acute distress, oriented x3 Head : Normal cephalic, a-traumatic. Ears : Pinnae and external canal are normal. Hearing is normal. Eyes : PERRLA, Sclera and injection are normal. No conjunctival discharge. Nose : Mucous membranes are without erythema. Throat : buccal mucosa is normal, gums are without significant recession or hypertrophy. Lungs : Equal chest rise bilaterally, no use of accessory muscles, trachea is midline. Cor : Rate and rhythm are normal. Abdomen : Soft, distended, diffusely tender, some guarding present, no rebound Extremities : No edema, no cyanosis or clubbing, dorsalis pedis pulses are present bilaterally, non-tender to palpation of calves. Upper extremities are normal bilaterally. Back : non-tender to palpation, no CVA tenderness. Neuro : CN II - XII intact, Upper and lower extremities have equal and full strength Data 02/01/23 23:40 02/01/23 23:40 Micro: Microbiology 02/02/23 01:17 Blood Culture - Preliminary Blood SPECIMEN COLLECTED 02/02/23 01:11 Blood Culture - Preliminary Blood SPECIMEN COLLECTED A&P Assessment and plan (1) Acute appendicitis: (2) Chronic kidney disease: Plan Laparoscopic Appendectomy The risks and benefits of the procedure, including but not limited to, bleeding, infection, scar, numbness, pain, damage to surrounding structures, conversion to an open procedure, were explained to the patient. He is understanding of the risks and wishes to proceed. Attestations Medical Necessity Statement*: Patient requires at least 1 night in the hospital for IV antibiotics following laparoscopic appendectomy Coding Level of Care Code 18700 Diagnoses Acute appendicitis K35.80 Chronic kidney disease N18.9
[2023-02-02] MEDS: sodium chloride 0.9% 1,000 ML 30 ML (09:15)
--- NOTE | 2023-02-02 09:58 | ANES.PREANE2 ---
Pre-Anesthetic Assessment Height/Weight: Height 1.68 m Weight 72.575 kg Temp Pulse Resp BP Pulse Ox O2 Del Method O2 Flow Rate 98.8 F 74 17 139/64 95 Nasal Cannula 1 02/02/23 08:50 02/02/23 08:50 02/02/23 08:50 02/02/23 08:50 02/02/23 08:50 02/02/23 08:50 02/02/23 08:50 Operation Date: 02/02/23 09:50 Proposed Procedures p Laparoscopic Appendectomy(Not Applicable) - Salbador Soni DO Familial anesthetic complications: none Was Beta Jose taken within 24 hours: Yes Was Clonidine taken within 24 hours: N/A Last intake: Intake Last Liquid Date 02/01/23 Last Liquid Time 21:00 Last Solid Date 02/01/23 Last Solid Time 18:00 Social No alcohol and No tobacco Exam alert, oriented x 3, clear to auscultation bilaterally and regular rate & rhythm Airway Submandibular: within normal limits Cervical ROM: within normal limits Mallampati: Class II Dentition: chipped (lower) and false (upper) CV/HEM Coronary Artery Disease (CABG), Hypertension and Peripheral Vascular Disease (Carotid dz) ONCLUSIONS ?Normal left ventricular size and systolic function, EF 64 %. ?Mild left ventricular hypertrophy. No regional wall motion ?abnormalities. Grade III/IV diastolic dysfunction (restrictive ?filling pattern), severely elevated filling pressures. ?Mildly increased left atrial size. ?Trace to mild mitral valve regurgitation. ?[id number] tricuspid valve regurgitation. ?Estimated pulmonary artery peak systolic pressure 39 mmHg. ?There is no pericardial effusion.? ?No similar previous studies are available for comparison ?Dr Ronit Mortensen MD [facility] ?(Electronically Signed) ?Final Date:? ? ? 22 February 2022 Chronic Renal Insufficiency GI Gastroesophageal Reflux Disease Metabolic Diabetes Mellitus and Hyperlipidemia Neuropsych Neuropathy Anesthetic Plan ASA status: 3 Anesthesia: General (Mod RSI) Medications/Allergies Home Medications Medication Instructions Recorded Confirmed Last Taken Type cholecalciferol (vitamin D3) 50 50 mcg PO DAILY 12/10/19 02/02/23 Unknown History mcg (2,000 unit) capsule citalopram 20 mg tablet (Celexa) 20 mg PO DAILY 12/10/19 02/02/23 Unknown History fluticasone propionate 50 2 spray intranasal DAILY 12/10/19 02/02/23 Unknown History mcg/actuation nasal spray,suspension folic acid 400 mcg tablet 0.4 mg PO DAILY 12/10/19 02/02/23 Unknown History glucosamine HCl 1,500 mg tablet 1,500 mg PO DAILY 12/10/19 02/02/23 Unknown History multivitamin 1 tab PO DAILY 12/10/19 02/02/23 Unknown History tamsulosin 0.4 mg capsule 0.4 mg PO DAILY 12/31/19 02/02/23 Unknown History pantoprazole 40 mg tablet,delayed 40 mg PO DAILY #90 tabs 01/27/20 02/02/23 Unknown Rx release lactobacillus combination no.8 3 3,000 mmu cells PO DAILY 06/01/20 02/02/23 Unknown History billion cell capsule (Adult Probiotic) aspirin 81 mg tablet,delayed 81 mg PO DAILY 05/25/21 02/02/23 Unknown History release (Adult Aspirin Regimen) nitroglycerin 0.4 mg sublingual 0.4 mg sublingual Q5M PRN chest 03/12/22 02/02/23 Unknown Rx tablet pain 30 days #30 tabs amlodipine 5 mg tablet 5 mg PO DAILY HTN #100 tabs 03/20/22 02/02/23 Unknown Rx simvastatin 40 mg tablet 40 mg PO DAILY #90 tabs 04/30/22 02/02/23 Unknown Rx ezetimibe 10 mg tablet 10 mg PO DAILY #100 tabs 05/22/22 02/02/23 Unknown Rx clopidogrel 75 mg tablet See Rx Instructions .Route 05/28/22 02/02/23 Unknown Rx .COMPLEX #100 tabs lisinopril 10 mg tablet 10 mg PO DAILY #100 tabs 06/18/22 02/02/23 Unknown Rx diabetic shoes with 3 sets of #1 ea 06/26/22 02/02/23 Unknown Rx insoles fenofibrate nanocrystallized 48 mg See Rx Instructions .Route 08/13/22 02/02/23 Unknown Rx tablet (Tricor) .COMPLEX #90 tabs oxymetazoline 0.05 % nasal spray See Rx Instructions intranasal 09/12/22 02/02/23 Unknown History (Afrin (oxymetazoline)) .COMPLEX PRN Nasal Congestion vit C 250 mg-vit E 90 mg-zinc 40 1 tab PO BID 09/12/22 02/02/23 Unknown History mg-copper 1 [id number]-ojficj capsule (PreserVision AREDS-2) custom inserts #1 ea 09/25/22 02/02/23 Unknown Rx hydrocodone 5 mg-acetaminophen 325 1 tab PO Q8H PRN pain #7 tabs 09/29/22 02/02/23 Unknown Rx mg tablet ondansetron 4 mg oral soluble film 4 mg PO DAILY PRN nausea and 09/29/22 02/02/23 Unknown Rx vomiting #10 ea furosemide 40 mg tablet 40 mg PO DAILY 12/26/22 02/02/23 Unknown History hydralazine 100 mg tablet 100 mg PO TID #270 tabs 12/26/22 02/02/23 Unknown Rx carvedilol 25 mg tablet 25 mg PO DAILY 02/02/23 02/02/23 Unknown History Allergies Allergy/AdvReac Type Severity Reaction Status Date / Time No Known Allergies Allergy Verified 12/26/22 09:42 Current Medications Generic Name Dose Route Start Last Admin Trade Name Freq PRN Reason Stop Dose Admin Sodium Chloride 1,000 mls @ 75 mls/hr 02/02/23 02:56 02/02/23 03:18 Sodium Chloride 0.9% IV 75 mls/hr .[id number] MISTY Administration Piperacillin Sod/Tazobactam 50 mls @ 12.5 mls/hr 02/02/23 07:30 02/02/23 09:14 Sod 3.375 gm/ Sodium Chloride IV Infused Q8H MISTY Infusion Insulin Human Lispro 0 unit 02/02/23 08:00 02/02/23 07:35 Insulin Lispro 100 Unit/1 Ml SUBCUT Not Given WM&BEDTIME MISTY Protocol Morphine Sulfate 2 mg 02/02/23 02:56 02/02/23 03:19 Morphine 4 Mg/Ml Sdv 1 Ml IVP 2 mg Q4H PRN Administration SEVERE PAIN Pantoprazole Sodium 40 mg 02/02/23 02:56 02/02/23 03:22 Pantoprazole 40 Mg Sdv IVP 40 mg Q24H MISTY Administration PFSH Anesthesia Medical History Atherosclerotic heart disease of [place] coronary artery with other forms of angina pectoris Benign essential HTN Bilateral carotid artery stenosis BPH loc w urin obs/LUTS CAD (coronary artery disease) Chronic kidney disease Diabetes Dyslipidemia (high LDL; low HDL) Elevated PSA Hyperlipidemia Hypertension Surgical History H/O adenoidectomy H/O heart bypass surgery History of common carotid artery stent placement Hx of cataract extraction Hx of tonsillectomy S/P right rotator cuff repair Family History Father , at age 83 Cancer prostate Mother , at age 93 Dementia Brother Cancer Other Hyperlipidemia Denies family history of Diabetes CAD (coronary artery disease) Clotting disorder Chronic kidney disease (CKD) Suicide Anesthesia complication Bleeding disorder Lung disease Stroke Social History Smoking and tobacco status: former smoker Alcohol intake: never Substance/Drug Use: never Adopted: No Caregiver/support person: No Lives independently: No Household members: spouse Marital status: Current occupational status: retired Data Anesthesia 02/01/23 23:40 02/01/23 23:40 Short CBC 02/01/23 Range/Units 23:40 WBC 4.2 (4.0-10.0) 10^3/uL Hgb 11.9 (11.7-16.6) g/dL Hct 37.3 L (42.0-52.0) % MCV 102.2 H (80-94) fl Plt Count 186 (130-400) 10^3/cmm BMP 02/01/23 23:40 Sodium 142 Potassium 4.8 Chloride 108 H Carbon Dioxide 22 BUN 35 H Creatinine 1.9 H Glucose 189 H Calcium 8.7 Liver Function 02/01/23 Range/Units 23:40 Total Bilirubin 0.6 (0.15-1.2) mg/dL AST 13 (0-40) U/L ALT 10 (0-41) U/L Alkaline Phosphatase 47 (40-130) U/L Albumin 4.1 (3.5-5.2) g/dL Coags 02/01/23 23:40 PT 15.70 H INR 1.21 H APTT 29.5 Microbiology 02/02/23 01:17 Blood Culture - Preliminary Blood SPECIMEN COLLECTED 02/02/23 01:11 Blood Culture - Preliminary Blood SPECIMEN COLLECTED Cardiac Studies: Echocardiogram 02/22/22 Sestamibi Stress Test (Cardiology) 02/15/22
[2023-02-02] MEDS: lidocaine-epi 2% 20 mL INJ INJECTION (10:06)
--- NOTE | 2023-02-02 10:32 | P.OP_ITS ---
Operative Report Date of procedure: February 02, 2023 Pre-op diagnosis: Acute appendicitis Post-op diagnosis: Acute perforated and gangrenous appendicitis Procedure done: Laparoscopic appendectomy Implants: 19 Ch[place] Jake drain Specimens removed/disposition: Appendix Surgeon: Dr. Salbador Soni DO Anesthesia: General Estimated blood loss (mL): 20 Complications: None apparent Brief History: This very pleasant 82-year-old gentleman who presented to the hospital with a 2- day history of abdominal pain nausea and vomiting. CT showed acute appendicitis. Laparoscopic appendectomy was indicated. The risk and benefits were explained and documented. Procedure: Patient was wheeled into the operative room and placed on the OR table in a supine position. Abdomen was inspected prepped and draped in usual sterile fashion. Time-out was performed and all present were in agreement. A 15 blade scalp was used to make a stab incision in the left upper quadrant and intra- abdominal insufflation was achieved using a Veress needle. After localizing the tissue incisions were made and a 12 millimeter trocar was placed into the umbilicus as well as a 5mm in the right lower quadrant and a 5 mm in the left lower quadrant . The appendix was identified and was found to be gangrenous and perforated. There was a fecalith sitting outside of the appendix and significant purulence in the pelvis. Extensive adhesions from the appendix to the abdominal wall and ascending colon were broken bluntly and sharply with the Enseal. I used the Enseal to ligate the mesoappendix at the base. I then used 2 PDS endo-loops to snare the base of the appendix. I then used the Voyant to ligate the appendix distally. The appendix was removed from the abdomen using an Endo-Catch bag through the umbilical incision. I examined the abdomen and suctioned all purulence and a fecalith out. The right lower quadrant and pelvis were irrigated and suctioned. A 19 [place] Jake drain was then placed into the left lower quadrant trocar, going into the pelvis and right colic gutter. Drain was sewn in place with 3-0 silk. Hemostasis was noted. I then closed the umbilical site with a Kevin-Dedra and 0 Vicryl suture in a figure of 8 fashion. All ports removed. Skin was washed and dried. Incisions were closed with 3-0 nylon in an simple interrupted fashion. Patient tolerated the procedure well. Patient will require at least 2 to 5 days in the hospital for IV antibiotics and recovery.
--- NOTE | 2023-02-02 10:59 | ANE.PACU2 ---
Inpatient post-anesthesia follow up: Airway intact: Yes Vital signs: Temperature 97.2 F Pulse Rate 77 Respiratory Rate 14 Blood Pressure 136/61 Pulse Oximetry 97 Oxygen Delivery Me thod Nasal Cannula Oxygen Flow Rate 1 Fraction of Inspir ed Oxygen Hydration adequate: Yes Nausea and vomiting: No Pain level: 0 Mental status: Baseline
[2023-02-02 12:05] LABS: Glucose Point of Care 125 mg/dL (70-110)
[2023-02-02] MEDS: heparin 5,000 unit/mL INJ 1 mL 5000 UNIT SUBCUT (12:30)
[2023-02-02] MEDS: sodium chloride 0.9% 1,000 ML 100 ML IV ×2 (12:35→16:33)
[2023-02-02 15:31] LABS: Add Urine Microscopic? YES; Bilirubin Urine Neg (Negative); Blood Urine Neg (Negative); Glucose Urine UA Norm (Normal); Ketones Urine Negative (Negative); Leukocyte Esterase Urine 2+ (Negative); Nitrate Urine Negative (Negative); Protein Urine Neg (Negative); Urine Appearance Clear (CLEAR); Urine Color Yellow (Yellow); Urobilinogen Urine Norm (Negative); pH Urine 5 (5-7)
[2023-02-02 15:33] LABS: Bacteria Urine TRACE /hpf
[2023-02-02 15:34] LABS: Add Urine Culture? No
[2023-02-02 17:01] LABS: Glucose Point of Care 103 mg/dL (70-110)
[2023-02-02 20:35] LABS: Glucose Point of Care 122 mg/dL (70-110)
[2023-02-03] VITALS (12 sets, daily range): BP systolic 114–151; BP diastolic 51–76; PULSE 75–98; RESP 16–18; TEMP 36.4–36.9; O2SAT 90–97
[2023-02-03] MEDS: HYDROmorphone 1 mg/mL INJ 1 mL IVP ×2 (00:07→20:17)
[2023-02-03] MEDS: piperacillin-tazobactam 3.375 GM in sodium chloride 0.9% (plus) 50 ML IV ×4 (00:10→23:12)
[2023-02-03] MEDS: heparin 5,000 unit/mL INJ 1 mL 5000 UNIT SUBCUT ×2 (00:10→12:20)
[2023-02-03] MEDS: pantoprazole 40 mg SDV IVP (03:42)
[2023-02-03] MEDS: sodium chloride 0.9% 1,000 ML 100 ML IV ×2 (03:43→14:56)
[2023-02-03 05:20] LABS: Basophils % 0.2 %; Hematocrit 30.7 % (42.0-52.0); Hemoglobin 9.6 g/dL (11.7-16.6); Lymphocytes # 0.6 10^3/uL (0.8-4.8); Lymphocytes % 6.6 %; Mean Corpuscular HGB Conc 31.3 g/dL (30.0-36.0); Mean Corpuscular Hemoglobin 33.7 pg (28.0-34.0); Mean Corpuscular Volume 107.7 fl (80-94); Mean Platelet Volume 10.8 fL (7.4-10.4); Monocytes # 0.7 10^3/uL (0.2-0.9); Monocytes % 7.8 %; Neutrophils # 7.23 10^3/uL (1.8-7.7); Neutrophils % 85.2 %; Nucleated Red Blood Cells % 0 %; Platelet Count 131 10^3/cmm (130-400); Red Blood Count 2.85 10^6/uL (4.1-5.3); Red Cell Distribution Width 13.9 % (12.1-15.1); White Blood Count 8.5 10^3/uL (4.0-10.0)
[2023-02-03 05:38] LABS: Alanine Aminotransferase 10 U/L (0-41); Albumin Level 3.2 g/dL (3.5-5.2); Alkaline Phosphatase 36 U/L (40-130); Aspartate Amino Transferase 19 U/L (0-40); Blood Urea Nitrogen 43 mg/dL (8-23); Calcium 8.2 mg/dL (8.5-10.5); Carbon Dioxide 21 mmol/L (22-29); Chloride 114 mmol/L (98-107); Globulin 1.6 g/dL (1.3-4.6); Glucose 116 mg/dL (65-115); Magnesium 2.5 mg/dL (1.7-2.3); Osmolality Calculated 308 mOsm/kg (285-295); Sodium 143 mmol/L (136-145); Total Bilirubin 0.2 mg/dL (0.15-1.2); Total Protein 4.8 g/dL (6.6-8.7)
[2023-02-03 06:59] LABS: Glucose Point of Care 124 mg/dL (70-110)
--- NOTE | 2023-02-03 10:25 | P.PN_ITS ---
Subjective Subjective: Pain controlled. Tolerating clear liquid diet. Not passing flatus yet. Vitals/I&O/Wt Last Vital Signs Temp 98.4 F 02/03/23 08:00 Pulse 85 02/03/23 08:00 Resp 16 02/03/23 08:00 BP 120/51 02/03/23 08:00 Pulse Ox 90 02/03/23 08:00 O2 Del Method Nasal Cannula 02/02/23 16:00 O2 Flow Rate 2 02/03/23 08:00 02/02/23 02/03/23 02/03/23 22:59 06:59 14:59 Intake Total 1050 / 2500 2170 / 4670 120 / 120 Output Total 80 / 1970 530 / 2500 Balance 970 / 530 1640 / 2170 120 / 120 Weight last 48 hrs Weight 160 lb Physical Exam Narrative: General: No acute distress, awake alert and oriented x3 Abdomen: Soft, mildly distended, appropriately tender, no guarding rebound or m asses Drain somewhat purulent Urinary Catheter Management: Frey: Cath Placed During This Visit: yes, but has since been removed by the nurse Urinary Catheter Date of Insertion: 02/02/23 Urinary Catheter Time of Insertion: 09:40 Date Urinary Catheter Removed: 02/02/23 Time Urinary Catheter Discontinued: 10:28 Data 02/03/23 04:58 02/03/23 04:58 Micro: Microbiology 02/02/23 01:17 Blood Culture - Preliminary Blood NEGATIVE TO DATE 02/02/23 01:11 Blood Culture - Preliminary Blood NEGATIVE TO DATE A&P Assessment and plan (1) Acute gangrenous appendicitis with perforation and peritonitis: (2) Status post laparoscopic appendectomy: Plan See orders Place Frey catheter if he cannot urinate by noon today Plan to keep patient for at least 3 days for IV antibiotics due to severity of disease Attestations Medical Necessity Statement*: Patient requires at least 2 more nights in the hospital for IV antibiotics following laparoscopic appendectomy for gangrenous appendicitis with perforation Coding Level of Care Code Acute Code for Chg Fwd Diagnoses Acute gangrenous appendicitis with perforation and peritonitis K35.32 Status post laparoscopic appendectomy Z90.49
[2023-02-03] MEDS: fluticasone nasal spray 16gm Btl 2 SPRAY INTRANASAL (11:02)
[2023-02-03] MEDS: polyethylene glycol 3350 Pkt 17 gm PO (11:02)
[2023-02-03] MEDS: ezetimibe 10 mg Tablet PO (11:04)
[2023-02-03] MEDS: atorvastatin 40 mg Tablet 20 MG PO (11:04)
[2023-02-03] MEDS: tamsulosin 0.4 mg Capsule PO (11:04)
[2023-02-03] MEDS: citalopram 20 mg Tablet PO (11:05)
[2023-02-03] MEDS: carvedilol 25 mg Tablet PO (11:05)
[2023-02-03] MEDS: lisinopril 10 mg Tablet PO (11:05)
[2023-02-03] MEDS: cholecalciferol (vitamin D3) 1,000 unit Tablet 2000 UNIT PO (11:05)
[2023-02-03] MEDS: FUROsemide 40 mg Tablet PO (11:05)
[2023-02-03] MEDS: fenofibrate 48 mg Tablet PO (11:05)
[2023-02-03 12:02] LABS: Glucose Point of Care 109 mg/dL (70-110)
[2023-02-03 16:36] LABS: Glucose Point of Care 104 mg/dL (70-110)
[2023-02-03] MEDS: bisacodyl 10 mg Supp PR (17:23)
[2023-02-03] MEDS: docusate sodium 100 mg Capsule PO (17:23)
--- NOTE | 2023-02-03 18:04 | P.PN_ITS ---
Subjective Subjective: No acute events Medications: Medication Review Details: Generic Name Dose Route Start Last Admin Trade Name Sharon PRN Reason Stop Dose Admin Atorvastatin Calci um 20 mg 02/03/23 10:30 02/03/23 11:04 Atorvastatin 40 Mg Tablet PO 20 mg DAILY MISTY Administration Bisacodyl 10 mg 02/03/23 10:25 02/03/23 17:23 Bisacodyl 10 Mg Supp RI 10 mg DAILY MISTY Administration Carvedilol 25 mg 02/03/23 10:30 02/03/23 11:05 Carvedilol 25 Mg Tablet PO 25 mg DAILY MISTY Administration Citalopram Hydrobr omide 20 mg 02/03/23 10:30 02/03/23 11:05 Citalopram 20 Mg Tablet PO 20 mg DAILY MISTY Administration Docusate Sodium 100 mg 02/03/23 18:00 02/03/23 17:23 Docusate Sodium 100 Mg Capsule PO 100 mg BID MISTY Administration Ezetimibe 10 mg 02/03/23 10:30 02/03/23 11:04 Ezetimibe 10 Mg Tablet PO 10 mg DAILY MISTY Administration Fenofibrate 48 mg 02/03/23 10:30 02/03/23 11:05 Fenofibrate 48 M g Tablet PO 48 mg DAILY MISTY Administration Fluticasone Propio laura 2 spray 02/03/23 10:30 02/03/23 11:02 Fluticasone Nasa l [place] 16gm Btl INTRANASAL 2 spray DAILY MISTY Administration Furosemide 40 mg 02/03/23 10:30 02/03/23 11:05 Furosemide 40 Mg Tablet PO 40 mg DAILY MISTY Administration Heparin Sodium (Po rcine) 5,000 unit 02/02/23 12:13 02/03/23 12:20 Heparin 5,000 Un it/Ml Inj 1 Ml SUBCUT 5,000 unit Q12H MISTY Administration Hydralazine HCl 100 mg 02/03/23 15:00 02/03/23 14:54 Hydralazine 50 M g Tablet PO Not Given TID MISTY Hydromorphone HCl 1 mg 02/02/23 12:13 02/03/23 00:07 Hydromorphone 1 Mg/Ml Inj 1 Ml IVP 1 mg Q3H PRN Administration pain Piperacillin Sod/T azobactam 50 mls @ 12.5 mls /hr 02/02/23 07:30 02/03/23 15:46 Sod 3.375 gm/ So dium Chloride IV 12.5 mls/hr Q8H MISTY Administration Sodium Chloride 1,000 mls @ 100 m ls/hr 02/02/23 12:13 02/03/23 14:56 Sodium Chloride 0.9% IV 100 mls/hr .Q10H MISTY Administration Insulin Human Lisp ro 0 unit 02/02/23 08:00 02/03/23 16:41 Insulin Lispro 1 00 Unit/1 Ml SUBCUT Not Given WM&BEDTIME MISTY Protocol Lisinopril 10 mg 02/03/23 10:30 02/03/23 11:05 Lisinopril 10 Mg Tablet PO 10 mg DAILY MISTY Administration Non-Formulary Medi cation 0.4 mg 02/03/23 10:30 02/03/23 10:53 Folic Acid PO Not Given DAILY MISTY Non-Formulary Medi cation 1,500 mg 02/03/23 10:30 02/03/23 10:53 Glucosamine Hcl PO Not Given DAILY MISTY Pantoprazole Sodiu m 40 mg 02/02/23 02:56 02/03/23 03:42 Pantoprazole 40 Mg Sdv IVP 40 mg Q24H MISTY Administration Polyethylene Glyco l 17 gm 02/03/23 10:25 02/03/23 11:02 Polyethylene Gly col 3350 Pkt 17 Gm PO 17 gm DAILY MISTY Administration Tamsulosin HCl 0.4 mg 02/03/23 10:30 02/03/23 11:04 Tamsulosin 0.4 M g Capsule PO 0.4 mg DAILY MISTY Administration Vitamin D 2,000 unit 02/03/23 10:30 02/03/23 11:05 Cholecalciferol (Vitamin D3) 1,000 Unit Tablet PO 2,000 unit DAILY MISTY Administration Vitals/I&O/Wt Last Vital Signs Temp 98.1 F 02/03/23 16:00 Pulse 75 02/03/23 16:00 Resp 16 02/03/23 16:00 BP 151/76 02/03/23 16:00 Pulse Ox 95 02/03/23 16:00 O2 Del Method Nasal Cannula 02/03/23 16:00 O2 Flow Rate 2 02/03/23 11:00 02/03/23 02/03/23 02/03/23 06:59 14:59 22:59 Intake Total 2170 / 4670 1410 / 1410 480 / 1890 Output Total 530 / 2500 175 / 175 30 / 205 Balance 1640 / 2170 1235 / 1235 450 / 1685 Weight last 48 hrs Weight 72.575 kg Physical Exam HENMT: COMMON NORMALS: normocephalic and atraumatic HEAD & SCALP: normocephalic and atraumatic Resp: COMMON NORMALS: clear to auscultation bilaterally AUSCULTATION: clear to auscultation bilaterally Cardio: COMMON NORMALS: regular rate, regular rhythm, S1 normal heart sound present, S2 normal heart sound present, No gallops present (Cardio), No murmurs present (Cardio), No rub (Cardio) and Peripheral pulses 2+ throughout RATE: regular rate RHYTHM: regular rhythm HEART SOUNDS: S1 normal heart sound present and S2 normal heart sound present PERIPHERAL PULSES: Peripheral pulses 2+ throughout GI: AUSCULTATION: Yes normoactive bowel sounds RECTAL EXAM: Yes deferred Extremity: COMMON NORMALS: no clubbing, cyanosis or edema and no pedal edema Urinary Catheter Management: Frey: Cath Placed During This Visit: yes, but has since been removed by the nurse Urinary Catheter Date of Insertion: 02/02/23 Urinary Catheter Time of Insertion: 09:40 Date Urinary Catheter Removed: 02/02/23 Time Urinary Catheter Discontinued: 10:28 Data 02/04/23 04:15 02/04/23 04:15 Micro: Microbiology 02/02/23 01:17 Blood Culture - Preliminary Blood NEGATIVE TO DATE 02/02/23 01:11 Blood Culture - Preliminary Blood NEGATIVE TO DATE A&P Assessment and plan (1) Status post laparoscopic appendectomy: (2) Chronic kidney disease: (3) Hypertension: Continue amlodipine, carvedilol, hydralazine.lisinopril (4) Type 2 diabetes mellitus: On LDSSI monitor FSG (5) Hx of coronary artery disease: (6) Acute gangrenous appendicitis with perforation and peritonitis: Currently on zosyn Plan Continue Aspirin,statin,beta deonte Attestations Medical Necessity Statement*: per primary Coding Level of Care Code Acute Code for Chg Fwd Diagnoses Status post laparoscopic appendectomy Z90.49 Chronic kidney disease N18.9 Hypertension I10 Type 2 diabetes mellitus E11.9 Hx of coronary artery disease Z86.79 Acute gangrenous appendicitis with perforation and peritonitis K35.32
[2023-02-03] MEDS: hyDRALAzine 50 mg Tablet 100 MG PO (20:53)
[2023-02-03 20:57] LABS: Glucose Point of Care 106 mg/dL (70-110)
--- NOTE | 2023-02-03 21:27 | ECG_ITS ---
[facility] Test Date: 2023-02-03 Pat Name: Ck Marcus Department: Room: 269 Gender: Male Psychiatry Physician: : [id number] Requested By: Amanda Bates Order Number: [id number] Humberto MD: Anuja Loving M.D. Measurements Intervals [place] Rate: 74 P: 0 OH: 0 QRS: -12 QRSD: 101 T: 5 QT: 375 QTc: 416 Interpretive Statements ATRIAL FLUTTER INCOMPLETE RIGHT BUNDLE BRANCH BLOCK [90+ ms QRS DURATION, TERMINAL R IN V1/V2, 40+ ms S IN I/aVL/V4/V5/V6] POSSIBLE ANTERIOR MYOCARDIAL INFARCTION , OF INDETERMINATE AGE [30 ms Q WAVE IN V3/V4, OR R < 0.2 mV IN V4] Compared to ECG 02/02/2023 01:55:16 Sinus rhythm no longer present Myocardial infarct finding still present Electronically Signed On 02-04-2023 21:32:28 CDT by Anuja Loving M.D. [email or web address]/[id number]
--- NOTE | 2023-02-03 21:45 | PC.NURSE ---
TELEMETRY RHYTHM CHANGE Pt noted on per diem interpreter to now be in A-flutter. Previously in NSR. EKG was done to confirm and Dr Bates was notified. Pt is asymptomatic and reports no hx of irregular HR that he is aware of. HR is 98/min. BP 145/65. Is receiving Coreg 25mg po dailyOrder received to monitor and call with changes.
[2023-02-04] VITALS (10 sets, daily range): BP systolic 125–153; BP diastolic 54–68; PULSE 69–81; RESP 15–18; TEMP 36.5–36.9; O2SAT 95–98
[2023-02-04] MEDS: heparin 5,000 unit/mL INJ 1 mL 5000 UNIT SUBCUT ×3 (00:07→23:58)
[2023-02-04] MEDS: sodium chloride 0.9% 1,000 ML 100 ML IV ×2 (03:00→14:33)
--- NOTE | 2023-02-04 03:06 | W.PM.EVENTAC ---
Event Note Event Note: Pt nurse noted rhythm change on monitoring. EKG shoing aflutter which is a new finding for him. Post opfrom lap appy 02/02 for gangrenous and perforated appendicitis. On antibiotics and pain medications. Rate is controlled and BP stable. No complaints of chest pain. Will monitor for now and add magnesium to am labs.
[2023-02-04] MEDS: pantoprazole 40 mg SDV IVP (03:08)
[2023-02-04 04:38] LABS: Basophils % 0.1 %; Eosinophils # 0.2 10^3/uL (0.0-0.8); Eosinophils % 2.8 %; Hematocrit 32.4 % (42.0-52.0); Lymphocytes # 0.4 10^3/uL (0.8-4.8); Lymphocytes % 5.3 %; Mean Corpuscular HGB Conc 30.9 g/dL (30.0-36.0); Mean Corpuscular Hemoglobin 32.8 pg (28.0-34.0); Mean Corpuscular Volume 106.2 fl (80-94); Monocytes # 0.4 10^3/uL (0.2-0.9); Monocytes % 4.6 %; Neutrophils # 7.27 10^3/uL (1.8-7.7); Nucleated Red Blood Cells % 0 %; Platelet Count 151 10^3/cmm (130-400); Red Blood Count 3.05 10^6/uL (4.1-5.3); Red Cell Distribution Width 13.7 % (12.1-15.1); White Blood Count 8.4 10^3/uL (4.0-10.0)
[2023-02-04 04:50] LABS: Troponin T (5th) Once 33 ng/L (0-15)
[2023-02-04 05:01] LABS: Alanine Aminotransferase 15 U/L (0-41); Alkaline Phosphatase 43 U/L (40-130); Aspartate Amino Transferase 24 U/L (0-40); Blood Urea Nitrogen 40 mg/dL (8-23); Calcium 8.1 mg/dL (8.5-10.5); Carbon Dioxide 21 mmol/L (22-29); Chloride 114 mmol/L (98-107); Globulin 1.6 g/dL (1.3-4.6); Glucose 111 mg/dL (65-115); Osmolality Calculated 306 mOsm/kg (285-295); Sodium 143 mmol/L (136-145); Total Bilirubin 0.3 mg/dL (0.15-1.2); Total Protein 4.6 g/dL (6.6-8.7)
[2023-02-04 05:02] LABS: Magnesium 2.4 mg/dL (1.7-2.3); Phosphorus 2.5 mg/dL (2.5-4.5)
[2023-02-04 05:04] LABS: Anion Gap 12.5 (5-19); Potassium 4.5 mmol/L (3.5-5.1)
[2023-02-04 06:55] LABS: Glucose Point of Care 123 mg/dL (70-110)
[2023-02-04] MEDS: piperacillin-tazobactam 3.375 GM in sodium chloride 0.9% (plus) 50 ML IV ×3 (07:09→23:57)
--- NOTE | 2023-02-04 07:11 | PC.NURSE ---
FLATUS Pt says is passing some gas this morning. Has had hiccups off & on through night. Enc to be up ambulating in cal[place] today
[2023-02-04] MEDS: aspirin 81 mg EC Tablet PO (08:58)
[2023-02-04] MEDS: multivitamin therapeutic Tablet 1 TAB PO (08:58)
[2023-02-04] MEDS: carvedilol 25 mg Tablet PO (08:58)
[2023-02-04] MEDS: amlodipine 5 mg Tablet PO (08:58)
[2023-02-04] MEDS: citalopram 20 mg Tablet PO (08:59)
[2023-02-04] MEDS: atorvastatin 40 mg Tablet 20 MG PO (08:59)
[2023-02-04] MEDS: FUROsemide 40 mg Tablet PO (08:59)
[2023-02-04] MEDS: hyDRALAzine 50 mg Tablet 100 MG PO ×3 (08:59→20:48)
[2023-02-04] MEDS: cholecalciferol (vitamin D3) 1,000 unit Tablet 2000 UNIT PO (08:59)
[2023-02-04] MEDS: ezetimibe 10 mg Tablet PO (08:59)
[2023-02-04] MEDS: lisinopril 10 mg Tablet PO (08:59)
[2023-02-04] MEDS: docusate sodium 100 mg Capsule PO ×2 (08:59→18:02)
[2023-02-04] MEDS: fluticasone nasal spray 16gm Btl 2 SPRAY INTRANASAL (09:00)
[2023-02-04] MEDS: bisacodyl 10 mg Supp PR (09:00)
--- NOTE | 2023-02-04 09:35 | ECG_ITS ---
[facility] Test Date: 2023-02-04 Pat Name: Ck Marcus Department: Room: 269 Gender: Male Applications Developer: : 1940 Requested By: Amanda Bates Order Number: [id number] Humberto MD: Anuja Loving M.D. Measurements Intervals [place] Rate: 76 P: 0 RI: 0 QRS: -13 QRSD: 93 T: 14 QT: 394 QTc: 444 Interpretive Statements ATRIAL FLUTTER INCOMPLETE RIGHT BUNDLE BRANCH BLOCK [90+ ms QRS DURATION, TERMINAL R IN V1/V2, 40+ ms S IN I/aVL/V4/V5/V6] MINIMAL VOLTAGE CRITERIA FOR LVH, CONSIDER NORMAL VARIANT [MEETS CRITERIA IN ONE OF: R(aVL), S(V1), R(V5), R(V5/V6)+S(V1)] POSSIBLE ANTERIOR MYOCARDIAL INFARCTION , OF INDETERMINATE AGE [30 ms Q WAVE IN V3/V4, OR R < 0.2 mV IN V4] Compared to ECG 02/03/2023 21:32:50 No significant changes Electronically Signed On 02-04-2023 21:29:43 CDT by Anuja Loving M.D. [id number]
[2023-02-04] MEDS: tamsulosin 0.4 mg Capsule PO (09:50)
[2023-02-04] MEDS: fenofibrate 48 mg Tablet PO (09:50)
[2023-02-04] MEDS: polyethylene glycol 3350 Pkt 17 gm PO (09:50)
[2023-02-04 11:45] LABS: Glucose Point of Care 119 mg/dL (70-110)
[2023-02-04 13:38] LABS: Glucose Point of Care 126 mg/dL (70-110)
--- NOTE | 2023-02-04 16:46 | P.PN_ITS ---
Subjective Subjective: Early this morning patient was noted to have a rhythm change. He converted from sinus rhythm into a flutter. He has been rate controlled. Reports no past history of a flutter or fibrillation. Denies any current chest pain dyspnea palpitations. Suspect this is triggered by acute infection currently. Medications: Reviewed: Yes Medication Review Details: Generic Name Dose Route Start Last Admin Trade Name Freq PRN Reason Stop Dose Admin Atorvastatin Calci um 20 mg 02/03/23 10:30 02/03/23 11:04 Atorvastatin 40 Mg Tablet PO 20 mg DAILY MISTY Administration Bisacodyl 10 mg 02/03/23 10:25 02/03/23 17:23 Bisacodyl 10 Mg Supp LA 10 mg DAILY MISTY Administration Carvedilol 25 mg 02/03/23 10:30 02/03/23 11:05 Carvedilol 25 Mg Tablet PO 25 mg DAILY MISTY Administration Citalopram Hydrobr omide 20 mg 02/03/23 10:30 02/03/23 11:05 Citalopram 20 Mg Tablet PO 20 mg DAILY MISTY Administration Docusate Sodium 100 mg 02/03/23 18:00 02/03/23 17:23 Docusate Sodium 100 Mg Capsule PO 100 mg BID MISTY Administration Ezetimibe 10 mg 02/03/23 10:30 02/03/23 11:04 Ezetimibe 10 Mg Tablet PO 10 mg DAILY MISTY Administration Fenofibrate 48 mg 02/03/23 10:30 02/03/23 11:05 Fenofibrate 48 M g Tablet PO 48 mg DAILY MISTY Administration Fluticasone Propio laura 2 spray 02/03/23 10:30 02/03/23 11:02 Fluticasone [place] l [place] 16gm Btl INTRANASAL 2 spray DAILY MISTY Administration Furosemide 40 mg 02/03/23 10:30 02/03/23 11:05 Furosemide 40 Mg Tablet PO 40 mg DAILY MISTY Administration Heparin Sodium (Po rcine) 5,000 unit 02/02/23 12:13 02/03/23 12:20 Heparin 5,000 Un it/Ml Inj 1 Ml SUBCUT 5,000 unit Q12H MISTY Administration Hydralazine HCl 100 mg 02/03/23 15:00 02/03/23 14:54 Hydralazine 50 M g Tablet PO Not Given TID MISTY Hydromorphone HCl 1 mg 02/02/23 12:13 02/03/23 00:07 Hydromorphone 1 Mg/Ml Inj 1 Ml IVP 1 mg Q3H PRN Administration pain Piperacillin Sod/T azobactam 50 mls @ 12.5 mls /hr 02/02/23 07:30 02/03/23 15:46 Sod 3.375 gm/ So dium Chloride IV 12.5 mls/hr Q8H MISTY Administration Sodium Chloride 1,000 mls @ 100 m ls/hr 02/02/23 12:13 02/03/23 14:56 Sodium Chloride 0.9% IV 100 mls/hr .Q10H MISTY Administration Insulin Human Lisp ro 0 unit 02/02/23 08:00 02/03/23 16:41 Insulin Lispro 1 00 Unit/1 Ml SUBCUT Not Given WM&BEDTIME MISTY Protocol Lisinopril 10 mg 02/03/23 10:30 02/03/23 11:05 Lisinopril 10 Mg Tablet PO 10 mg DAILY MISTY Administration Non-Formulary Medi cation 0.4 mg 02/03/23 10:30 02/03/23 10:53 Folic Acid PO Not Given DAILY MISTY Non-Formulary Medi cation 1,500 mg 02/03/23 10:30 02/03/23 10:53 Glucosamine Hcl PO Not Given DAILY MISTY Pantoprazole Sodiu m 40 mg 02/02/23 02:56 02/03/23 03:42 Pantoprazole 40 Mg Sdv IVP 40 mg Q24H MISTY Administration Polyethylene Glyco l 17 gm 02/03/23 10:25 02/03/23 11:02 Polyethylene Gly col 3350 Pkt 17 Gm PO 17 gm DAILY MISTY Administration Tamsulosin HCl 0.4 mg 02/03/23 10:30 02/03/23 11:04 Tamsulosin 0.4 M g Capsule PO 0.4 mg DAILY MISTY Administration Vitamin D 2,000 unit 02/03/23 10:30 02/03/23 11:05 Cholecalciferol (Vitamin D3) 1,000 Unit Tablet PO 2,000 unit DAILY MISTY Administration Vitals/I&O/Wt Last Vital Signs Temp 97.7 F 02/04/23 11:37 Pulse 81 02/04/23 14:00 Resp 16 02/04/23 11:37 BP 144/63 02/04/23 11:37 Pulse Ox 95 02/04/23 11:37 O2 Del Method Nasal Cannula 02/04/23 11:37 O2 Flow Rate 2 02/04/23 08:00 02/04/23 02/04/23 02/04/23 06:59 14:59 22:59 Intake Total 828.333 / 3265.000 0 / 1770 Output Total 880 / 1085 100 / 100 Balance -51.667 / 2180.000 1770 / 1770 -100 / 1670 Physical Exam Narrative: General: No acute distress, AO x3 HEENT: PERRLA, pupils bilaterally equal and reactive, pallors not present Chest: Normal vesicular breath sounds, no added sounds, equal good air entry bilaterally CVS: S1-S2 regular, no murmurs, no tachycardia, no gallops, no rubs Abdomen: Soft, mildly distended, ASIM rains in place Neuro: No focal deficits, no facial deformity, AO x3, power 5/5 in all limbs Urinary Catheter Management: Frey: Cath Placed During This Visit: yes, but has since been removed by the nurse Urinary Catheter Date of Insertion: 02/02/23 Urinary Catheter Time of Insertion: 09:40 Date Urinary Catheter Removed: 02/02/23 Time Urinary Catheter Discontinued: 10:28 Data 02/04/23 04:15 02/04/23 04:15 A&P Assessment and plan (1) Status post laparoscopic appendectomy: (2) Chronic kidney disease: (3) Hypertension: (4) Type 2 diabetes mellitus: (5) Hx of coronary artery disease: (6) Acute gangrenous appendicitis with perforation and peritonitis: (7) Atrial flutter: Plan (1) Acute appendicitis Patient admitted with acute appendicitis s/p appendectomy on 02/02/23 Currently on Zosyn empirically On regular diet , management per surgery (2) New onset A flutter Likely triggered by acute infection and recent surgery Rate currently controlled Denies any chest pain, dyspnea, palpitations Developing Rales on exam today, check chest x-ray for interim development of any edema. Check BNP. Bp currently controlled Continue Carvedilol 25 mg po daily He is currently receiving both Lasix 40 mg p.o. daily and IV fluid normal saline at 100 cc an hour. Discontinue IV fluids as concern for developing pulmonary edema Last echocardiogram dating to February 2022 with LVEF of 64% and grade 3 diastolic dysfunction. Trace to mild mitral valve regurgitation. If a flutter sustained, will eventually need to consider adding anticoagulation Past h/o CAD, check troponin series given new change in rhythm Electrolytes including potassium and magnesium are currently in range Aspirin has currently been resumed since surgery. Pending reinitiation of Plavix. net + 7 L since admission (3) Hx of coronary artery disease: Patient with history of coronary artery disease Past history of abnormal nuclear stress test in 2021.? This is being treated medically currently.? No current chest pain, however evaluate [facility] troponin series given new change in rhythm ? (4) Type 2 diabetes mellitus: Sliding scale insulin, mild When diet eventually starts and will need to be consistent carb (5) Hypertension: Continue home dose of lisinopril, hydralazine, carvedilol, amlodipine (5) Chronic kidney disease: Patient with history of chronic kidney disease cr currently at baseline 2.0 urine output 1L last 24 hrs Attestations Medical Necessity Statement*: Per admitting, new change in cardiac rhythm which needs further evaluation Coding Level of Care Code Acute Code for Chg Fwd High MDM includes number and complexity of problems actively addressed during encounter, amount and/or complexity of data reviewed/ordered and described risk of complication, morbidity or mortality of management as documented Diagnoses Status post laparoscopic appendectomy Z90.49 Chronic kidney disease N18.9 Hypertension I10 Type 2 diabetes mellitus E11.9 Hx of coronary artery disease Z86.79 Acute gangrenous appendicitis with perforation and peritonitis K35.32 Atrial flutter I48.92
--- NOTE | 2023-02-04 16:57 | XRR_ITS ---
PROCEDURE INFORMATION: Exam: XR Chest Exam date and time: 02/04/2023 5:49 PM Age: 82 years old Clinical indication: Shortness of breath; Prior surgery; Surgery date: 6+ months; Surgery type: Cabg; Additional info: Evaluate for chf TECHNIQUE: Imaging protocol: Radiologic exam of the chest. Views: 1 view. COMPARISON: CR (CHEST, ) 02/02/2023 1:41 AM FINDINGS: Tubes, catheters and devices: Clips in the right neck. Lungs: Small calcified granulomas in the right lung. The lungs otherwise are clear. Pleural spaces: Unremarkable. No pleural effusion. No pneumothorax. Heart/Mediastinum: Unremarkable. No cardiomegaly. Bones/joints: Sternotomy wires. Anchors in the right humeral head. XR/XR chest 1V portable [id number] IMPRESSION: No acute findings.
--- NOTE | 2023-02-04 17:01 | ECG_ITS ---
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 Measurements Intervals [place] Rate: 79 P: 0 [place]: 0 QRS: -9 QRSD: 98 T: 38 QT: 368 QTc: 424 Interpretive Statements ATRIAL FLUTTER INCOMPLETE RIGHT BUNDLE BRANCH BLOCK [90+ ms QRS DURATION, TERMINAL R IN V1/V2, 40+ ms S IN I/aVL/V4/V5/V6] POSSIBLE ANTERIOR MYOCARDIAL INFARCTION , OF INDETERMINATE AGE [30 ms Q WAVE IN V3/V4, OR R < 0.2 mV IN V4] Compared to ECG 02/04/2023 09:35:49 No significant changes Electronically Signed On 02-04-2023 21:00:46 CDT by Anuja Loving M.D. [id number]
[2023-02-04 17:17] LABS: Glucose Point of Care 113 mg/dL (70-110)
--- NOTE | 2023-02-04 17:50 | PM.PN ---
Subjective Subjective: Pain controlled. Tolerating regular diet. Passing flatus but no bowel movement yet Vitals/I&O/Wt Last Vital Signs Temp 98.2 F 02/05/23 12:00 Pulse 73 02/05/23 12:00 Resp 16 02/05/23 12:00 BP 154/64 02/05/23 12:00 Pulse Ox 94 02/05/23 12:00 O2 Del Method Nasal Cannula 02/05/23 12:00 O2 Flow Rate 2 02/05/23 08:00 02/05/23 02/05/23 02/05/23 06:59 14:59 22:59 Intake Total 200 / 2826.667 530 / 530 Output Total 700 / 1100 Balance -500 / 1726.667 530 / 530 Physical Exam Narrative: General: No acute distress, awake alert and oriented x3 Abdomen: Soft, mildly distended, appropriately tender, no guarding rebound or masses Drain somewhat purulent Urinary Catheter Management: Frey: Cath Placed During This Visit: yes, but has since been removed by the nurse Urinary Catheter Date of Insertion: 02/02/23 Urinary Catheter Time of Insertion: 09:40 Date Urinary Catheter Removed: 02/02/23 Time Urinary Catheter Discontinued: 10:28 Data 02/05/23 06:53 02/05/23 06:53 A&P Assessment and plan (1) Acute gangrenous appendicitis with perforation and peritonitis: (2) Status post laparoscopic appendectomy: Plan Regular diet Incentive spirometer See orders Medicine following-appreciate input Plan to keep patient for at least 3 days for IV antibiotics due to severity of disease Attestations Medical Necessity Statement*: Patient requires at least 1 more night in the hospital for IV antibiotics following laparoscopic appendectomy for gangrenous appendicitis with perforation Coding Level of Care Code Acute Code for Chg Fwd Diagnoses Acute gangrenous appendicitis with perforation and peritonitis K35.32 Status post laparoscopic appendectomy Z90.49
[2023-02-04 18:00] LABS: Troponin(5th) Baseline 33 ng/L (0-15)
[2023-02-04 18:03] LABS: NT Pro B Type Natriuretic Pept 17533 pg/mL (0-450)
[2023-02-04] MEDS: HYDROmorphone 1 mg/mL INJ 1 mL IVP (18:20)
--- NOTE | 2023-02-04 19:28 | ECG_ITS ---
[facility] Test Date: 2023-02-04 Pat Name: Ck Marcus Department: Room: 269 Gender: Male Customer Response Representative: : 1940 Requested By: Ella Pruett Order Number: [id number] Humberto MD: Anuja Loving M.D. Measurements Intervals [place] Rate: 81 P: 0 [place]: 0 QRS: -11 QRSD: 98 T: 30 QT: 382 QTc: 445 Interpretive Statements ATRIAL FLUTTER WITH ABERRANT CONDUCTION OR VENTRICULAR PREMATURE COMPLEXES INCOMPLETE RIGHT BUNDLE BRANCH BLOCK [90+ ms QRS DURATION, TERMINAL R IN V1/V2, 40+ ms S IN I/aVL/V4/V5/V6] POSSIBLE ANTERIOR MYOCARDIAL INFARCTION , OF INDETERMINATE AGE [30 ms Q WAVE IN V3/V4, OR R < 0.2 mV IN V4] Compared to ECG 02/04/2023 18:09:58 Ventricular premature complex(es) now present Aberrant conduction of supraventricular beat(s) now present Myocardial infarct finding still present Electronically Signed On 02-04-2023 21:21:57 CDT by Anuja Loving M.D. [id number]
[2023-02-04 20:07] LABS: Troponin 5 2HR 27.88 ng/L (0-15)
[2023-02-04 20:09] LABS: Troponin 5 2HR Delta -5.12 ABS# (0-10)
[2023-02-04 21:01] LABS: Glucose Point of Care 118 mg/dL (70-110)
--- NOTE | 2023-02-04 23:44 | ECG_ITS ---
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 Measurements Intervals [place] Rate: 80 P: 0 PA: 0 QRS: -14 QRSD: 105 T: 27 QT: 386 QTc: 446 Interpretive Statements ATRIAL FLUTTER INCOMPLETE RIGHT BUNDLE BRANCH BLOCK [90+ ms QRS DURATION, TERMINAL R IN V1/V2, 40+ ms S IN I/aVL/V4/V5/V6] POSSIBLE ANTERIOR MYOCARDIAL INFARCTION , OF INDETERMINATE AGE [30 ms Q WAVE IN V3/V4, OR R < 0.2 mV IN V4] Compared to ECG 02/04/2023 19:28:54 Ventricular premature complex(es) no longer present Aberrant conduction of supraventricular beat(s) no longer present Myocardial infarct finding still present Electronically Signed On 02-05-2023 17:43:33 CDT by Sal Hollingsworth M.D. [email or web address] [id number]
[2023-02-04 23:45] LABS: Troponin 5 6HR 28.89 ng/L (0-15)
[2023-02-04 23:47] LABS: Troponin 5 6HR Delta -4.11 ng/L (0-12)
[2023-02-05] VITALS (8 sets, daily range): BP systolic 126–154; BP diastolic 52–64; PULSE 73–80; RESP 16–18; TEMP 36.2–36.9; O2SAT 94–98
[2023-02-05] MEDS: pantoprazole 40 mg SDV IVP (02:39)
[2023-02-05] MEDS: piperacillin-tazobactam 3.375 GM in sodium chloride 0.9% (plus) 50 ML IV ×2 (06:39→15:50)
[2023-02-05 06:51] LABS: Glucose Point of Care 112 mg/dL (70-110)
[2023-02-05 07:36] LABS: Basophils % 0.2 %; Eosinophils # 0.2 10^3/uL (0.0-0.8); Eosinophils % 2.8 %; Hematocrit 30.7 % (42.0-52.0); Hemoglobin 9.7 g/dL (11.7-16.6); Lymphocytes # 0.4 10^3/uL (0.8-4.8); Lymphocytes % 6.2 %; Mean Corpuscular HGB Conc 31.6 g/dL (30.0-36.0); Mean Corpuscular Volume 104.4 fl (80-94); Mean Platelet Volume 10.4 fL (7.4-10.4); Monocytes # 0.4 10^3/uL (0.2-0.9); Monocytes % 6.3 %; Neutrophils # 5.32 10^3/uL (1.8-7.7); Neutrophils % 83.9 %; Nucleated Red Blood Cells % 0 %; Platelet Count 159 10^3/cmm (130-400); Red Blood Count 2.94 10^6/uL (4.1-5.3); Red Cell Distribution Width 13.4 % (12.1-15.1); White Blood Count 6.3 10^3/uL (4.0-10.0)
[2023-02-05 08:06] LABS: Alanine Aminotransferase 21 U/L (0-41); Albumin Level 2.6 g/dL (3.5-5.2); Alkaline Phosphatase 51 U/L (40-130); Anion Gap 14.2 (5-19); Aspartate Amino Transferase 24 U/L (0-40); Blood Urea Nitrogen 38 mg/dL (8-23); Calcium 8.2 mg/dL (8.5-10.5); Carbon Dioxide 22 mmol/L (22-29); Chloride 111 mmol/L (98-107); Globulin 1.6 g/dL (1.3-4.6); Glucose 109 mg/dL (65-115); Osmolality Calculated 306 mOsm/kg (285-295); Potassium 4.2 mmol/L (3.5-5.1); Sodium 143 mmol/L (136-145); Total Bilirubin 0.3 mg/dL (0.15-1.2); Total Protein 4.2 g/dL (6.6-8.7)
[2023-02-05] MEDS: fluticasone nasal spray 16gm Btl 2 SPRAY INTRANASAL (09:00)
[2023-02-05] MEDS: docusate sodium 100 mg Capsule PO ×2 (09:02→17:20)
[2023-02-05] MEDS: citalopram 20 mg Tablet PO (09:02)
[2023-02-05] MEDS: polyethylene glycol 3350 Pkt 17 gm PO (09:02)
[2023-02-05] MEDS: atorvastatin 40 mg Tablet 20 MG PO (09:02)
[2023-02-05] MEDS: bisacodyl 10 mg Supp PR (09:02)
--- NOTE | 2023-02-05 09:02 | PC.SOCIAL ---
IMM update IMM updated with patient and daughter at bedside. Verbalized an understanding. Copy PG 2 provided. Initialled, dated, timed, and placed in chart.
[2023-02-05] MEDS: ezetimibe 10 mg Tablet PO (09:05)
[2023-02-05] MEDS: hyDRALAzine 50 mg Tablet 100 MG PO ×3 (09:05→21:23)
[2023-02-05] MEDS: aspirin 81 mg EC Tablet PO (09:05)
[2023-02-05] MEDS: tamsulosin 0.4 mg Capsule PO (09:05)
[2023-02-05] MEDS: FUROsemide 40 mg Tablet PO (09:05)
[2023-02-05] MEDS: carvedilol 25 mg Tablet PO (09:05)
[2023-02-05] MEDS: fenofibrate 48 mg Tablet PO (09:06)
[2023-02-05] MEDS: lisinopril 10 mg Tablet PO (09:06)
[2023-02-05] MEDS: amlodipine 5 mg Tablet PO (09:06)
[2023-02-05] MEDS: heparin 5,000 unit/mL INJ 1 mL 5000 UNIT SUBCUT ×2 (11:31→23:59)
[2023-02-05 12:05] LABS: Glucose Point of Care 139 mg/dL (70-110)
[2023-02-05 16:12] LABS: Glucose Point of Care 140 mg/dL (70-110)
--- NOTE | 2023-02-05 17:52 | PM.PN ---
Subjective Subjective: Pain controlled. Tolerating regular diet. Passing flatus but no bowel movement yet. Pulling only 1000 cc on incentive spirometer Vitals/I&O/Wt Last Vital Signs Temp 98.2 F 02/05/23 12:00 Pulse 73 02/05/23 12:00 Resp 16 02/05/23 12:00 BP 154/64 02/05/23 12:00 Pulse Ox 94 02/05/23 12:00 O2 Del Method Nasal Cannula 02/05/23 12:00 O2 Flow Rate 2 02/05/23 08:00 02/05/23 02/05/23 02/05/23 06:59 14:59 22:59 Intake Total 200 / 2826.667 530 / 530 Output Total 700 / 1100 Balance -500 / 1726.667 530 / 530 Physical Exam Narrative: General: No acute distress, awake alert and oriented x3 Abdomen: Soft, mildly distended, appropriately tender, no guarding rebound or masses Drain somewhat purulent Urinary Catheter Management: Frey: Cath Placed During This Visit: yes, but has since been removed by the nurse Urinary Catheter Date of Insertion: 02/02/23 Urinary Catheter Time of Insertion: 09:40 Date Urinary Catheter Removed: 02/02/23 Time Urinary Catheter Discontinued: 10:28 Data 02/05/23 06:53 02/05/23 06:53 A&P Assessment and plan (1) Acute gangrenous appendicitis with perforation and peritonitis: (2) Status post laparoscopic appendectomy: Plan Regular diet Incentive spirometer Ambulate in halls See orders Medicine following-appreciate input Plan to keep patient for at least 3 days for IV antibiotics due to severity of disease Attestations Medical Necessity Statement*: Patient requires at least 1 more night in the hospital for IV antibiotics following laparoscopic appendectomy for gangrenous appendicitis with perforation Coding Level of Care Code Acute Code for Chg Fwd Diagnoses Acute gangrenous appendicitis with perforation and peritonitis K35.32 Status post laparoscopic appendectomy Z90.49
[2023-02-05 20:21] LABS: Glucose Point of Care 133 mg/dL (70-110)
[2023-02-05] MEDS: HYDROcodone-acetaminophen 7.5-325 mg Tablet 1 TAB PO (21:24)
[2023-02-06] MEDS: pantoprazole 40 mg SDV IVP (03:12)
[2023-02-06 04:51] VITALS: BP 135/57; PULSE 84; RESP 18; TEMP 36.4; O2SAT 96
[2023-02-06 06:36] LABS: Glucose Point of Care 138 mg/dL (70-110)
[2023-02-06] MEDS: piperacillin-tazobactam 3.375 GM in sodium chloride 0.9% (plus) 50 ML IV ×2 (06:55)
[2023-02-06 07:10] LABS: Eosinophils # 0.2 10^3/uL (0.0-0.8); Eosinophils % 2.8 %; Hematocrit 27.8 % (42.0-52.0); Lymphocytes # 0.4 10^3/uL (0.8-4.8); Lymphocytes % 7.7 %; Mean Corpuscular HGB Conc 32.4 g/dL (30.0-36.0); Mean Corpuscular Hemoglobin 32.5 pg (28.0-34.0); Mean Corpuscular Volume 100.4 fl (80-94); Mean Platelet Volume 10.2 fL (7.4-10.4); Monocytes # 0.5 10^3/uL (0.2-0.9); Monocytes % 8.9 %; Neutrophils # 4.54 10^3/uL (1.8-7.7); Neutrophils % 79.5 %; Nucleated Red Blood Cells % 0 %; Platelet Count 146 10^3/cmm (130-400); Red Blood Count 2.77 10^6/uL (4.1-5.3); Red Cell Distribution Width 13.2 % (12.1-15.1); White Blood Count 5.7 10^3/uL (4.0-10.0)
[2023-02-06 07:36] LABS: Alanine Aminotransferase 23 U/L (0-41); Albumin Level 2.7 g/dL (3.5-5.2); Alkaline Phosphatase 56 U/L (40-130); Anion Gap 12.4 (5-19); Aspartate Amino Transferase 22 U/L (0-40); Blood Urea Nitrogen 37 mg/dL (8-23); Calcium 8.5 mg/dL (8.5-10.5); Carbon Dioxide 25 mmol/L (22-29); Chloride 107 mmol/L (98-107); Globulin 1.4 g/dL (1.3-4.6); Glucose 132 mg/dL (65-115); Osmolality Calculated 303 mOsm/kg (285-295); Potassium 3.4 mmol/L (3.5-5.1); Sodium 141 mmol/L (136-145); Total Bilirubin 0.2 mg/dL (0.15-1.2); Total Protein 4.1 g/dL (6.6-8.7)
[2023-02-06 07:53] VITALS: BP 153/65; PULSE 82; RESP 20; TEMP 36.4; O2SAT 97
[2023-02-06] MEDS: docusate sodium 100 mg Capsule PO (08:37)
[2023-02-06] MEDS: citalopram 20 mg Tablet PO (08:37)
[2023-02-06] MEDS: hyDRALAzine 50 mg Tablet 100 MG PO (08:37)
[2023-02-06] MEDS: amlodipine 5 mg Tablet PO (08:38)
[2023-02-06] MEDS: fluticasone nasal spray 16gm Btl 2 SPRAY INTRANASAL (08:38)
[2023-02-06] MEDS: bisacodyl 10 mg Supp PR (08:38)
[2023-02-06] MEDS: atorvastatin 40 mg Tablet 20 MG PO (08:38)
[2023-02-06] MEDS: carvedilol 25 mg Tablet PO (08:38)
[2023-02-06] MEDS: polyethylene glycol 3350 Pkt 17 gm PO (08:39)
[2023-02-06] MEDS: aspirin 81 mg EC Tablet PO (08:39)
[2023-02-06] MEDS: FUROsemide 40 mg Tablet PO (08:39)
[2023-02-06] MEDS: fenofibrate 48 mg Tablet PO (08:40)
[2023-02-06] MEDS: ezetimibe 10 mg Tablet PO (08:40)
[2023-02-06] MEDS: lisinopril 10 mg Tablet PO (08:40)
[2023-02-06 11:34] LABS: Glucose Point of Care 174 mg/dL (70-110)
[2023-02-06] MEDS: heparin 5,000 unit/mL INJ 1 mL 5000 UNIT SUBCUT (11:38)
[2023-02-06] MEDS: insulin lispro 100 unit/1 mL SUBCUT (11:38)
[2023-02-06 11:47] VITALS: BP 137/57; PULSE 74; RESP 19; TEMP 36.2; O2SAT 98
--- NOTE | 2023-02-06 12:27 | ECG_ITS ---
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 Measurements Intervals [place] Rate: 77 P: 53 [place]: 157 QRS: 2 QRSD: 104 T: 0 QT: 397 QTc: 450 Interpretive Statements SINUS RHYTHM INCOMPLETE RIGHT BUNDLE BRANCH BLOCK [90+ ms QRS DURATION, TERMINAL R IN V1/V2, 40+ ms S IN I/aVL/V4/V5/V6] MARKED T-WAVE ABNORMALITY, CONSIDER ANTERIOR ISCHEMIA [-0.5+ mV T-WAVE IN V3/V4] Compared to ECG 02/04/2023 23:44:41 T-wave abnormality now present Possible ischemia now present Atrial flutter no longer present Myocardial infarct finding no longer present Electronically Signed On 02-06-2023 20:29:02 CDT by Ronit Mortensen M.D. [email or web address]/[id number]
--- NOTE | 2023-02-06 14:06 | PM.DCS ---
Discharge Providers Date of Admission: 02/02/23 02:56 Date of Discharge: February 06, 2023 Attending Provider at Admission: Isra Laughlin MD Attending Provider at Discharge: Salbador Soni DO Primary Care Provider: Naima Logan Diagnoses at Discharge Discharge Diagnosis (1) Acute gangrenous appendicitis with perforation and peritonitis: Status: Acute (2) Status post laparoscopic appendectomy: Status: Acute Reason for Visit Reason for Visit: ABD Pain Hospital Course Hospital Course This is a very pleasant 82-year-old gentleman who presented to the hospital with abdominal pain. He was found to have appendicitis. He underwent laparoscopic appendectomy where he was found to have acute gangrenous appendicitis with perforation. A drain was placed. He did well postoperatively and was discharged home in good condition with antibiotics. Physical Exam Narrative: General : Patient is well developed , no acute distress, oriented x3 Head : Normal cephalic, a-traumatic. Ears : Pinnae and external canal are normal. Hearing is normal. Eyes : PERRLA, Sclera and injection are normal. No conjunctival discharge. Nose : Mucous membranes are without erythema. Throat : buccal mucosa is normal, gums are without significant recession or hypertrophy. Lungs : Equal chest rise bilaterally, no use of accessory muscles, trachea is midline. Cor : Rate and rhythm are normal. Abdomen : Soft, ND, appropriately tender, no g/r/m Incisions intact without erythema or exudate Drain serosanguineous Extremities : No edema, no cyanosis or clubbing, dorsalis pedis pulses are present bilaterally, non-tender to palpation of calves. Upper extremities are normal bilaterally. Back : non-tender to palpation, no CVA tenderness. Neuro : CN II - XII intact, Upper and lower extremities have equal and full strength Urinary Catheter Management: Frey: Cath Placed During This Visit: yes, but has since been removed by the nurse Urinary Catheter Date of Insertion: 02/02/23 Urinary Catheter Time of Insertion: 09:40 Date Urinary Catheter Removed: 02/02/23 Time Urinary Catheter Discontinued: 10:28 Discharge Data Studies Completed and Pending Completed Studies During Hospitalization Category Date Time Status CT abdomen pelvis w con* [id number] Stat Cat Scan 02/02/23 00:01 Completed CXRP [XR chest 1V portable [id number]] Routine Exams 02/04/23 16:57 Completed XR chest 1V portable [id number] Stat Exams 02/02/23 01:38 Completed Pathology: Surgical [PTH] Routine Pth 02/02/23 10:38 Completed Pending at discharge Category Date Time Status Blood Culture Stat Lab 02/02/23 01:17 Results Radiology Impressions Abdomen/Pelvis CT 02/02/23 00:01 IMPRESSION: 1. Acute appendicitis. 2. Diverticulosis without diverticulitis. 3. Nodular prostate gland enlargement. 4. Small bilateral left greater than right fat containing inguinal hernias without bowel or inflammation. 5. Coronary artery atherosclerotic calcifications. 6. Cardiomegaly. 7. Hepatic steatosis. 8. Cholecystectomy. 9. Splenic cyst. 10. Bilateral renal cysts, negative for follow up. 11. L1 vertebral body chronic appearing compression fracture. 12. Small amount nonspecific fluid in the pelvis. COMMENTS: Consistent with the [employer] [place]'s Incidental Findings Committee white paper (J Am Derek Radiol 2018): Any incidental renal lesion less than 1 cm or classified as too small to characterize, or any incidental cystic renal lesion characterized as simple-appearing, is likely benign. No follow-up imaging is recommended for these lesions per consensus recommendations based on imaging criteria. ADDENDUM: 02/02/23 0135 THIS REPORT CONTAINS FINDINGS THAT MAY BE CRITICAL TO PATIENT CARE. The findings were verbally communicated via telephone conference with SIERRA MUJICA at 1:34 AM CDT on 02/02/2023. The findings were acknowledged and understood. Chest X-Ray 02/04/23 16:57 IMPRESSION: No acute findings. Laboratory Results WBC 5.7 10^3/uL (4.0-10.0) 02/06/23 06:52 RBC 2.77 10^6/uL (4.1-5.3) L 02/06/23 06:52 Hgb 9.0 g/dL (11.7-16.6) L 02/06/23 06:52 Hct 27.8 % (42.0-52.0) L 02/06/23 06:52 MCV 100.4 fl (80-94) H 02/06/23 06:52 MCH 32.5 pg (28.0-34.0) 02/06/23 06:52 MCHC 32.4 g/dL (30.0-36.0) 02/06/23 06:52 RDW 13.2 % (12.1-15.1) 02/06/23 06:52 Plt Count 146 10^3/cmm (130-400) 02/06/23 06:52 MPV 10.2 fL (7.4-10.4) 02/06/23 06:52 Neut % (Auto) 79.5 % 02/06/23 06:52 Lymph % (Auto) 7.7 % 02/06/23 06:52 [place] % (Auto) 8.9 % 02/06/23 06:52 Eos % (Auto) 2.8 % 02/06/23 06:52 Baso % (Auto) 0.0 % 02/06/23 06:52 Neut # (Auto) 4.54 10^3/uL (1.8-7.7) 02/06/23 06:52 Lymph # (Auto) 0.4 10^3/uL (0.8-4.8) L 02/06/23 06:52 [place] # (Auto) 0.5 10^3/uL (0.2-0.9) 02/06/23 06:52 Eos # (Auto) 0.2 10^3/uL (0.0-0.8) 02/06/23 06:52 Baso # (Auto) 0.0 10^3/uL (0.0-0.1) 02/06/23 06:52 Nucleated RBC % (auto) 0 % 02/06/23 06:52 Total Counted 100 (0-100) 02/01/23 23:40 Atypical Lymphs % 0.0 % (0-5) 02/01/23 23:40 Absolute Neutrophils 3.8 10^3/cmm (1.4-6.5) 02/01/23 23:40 Segmented Neutrophils 87 % 02/01/23 23:40 Abs Segm Neuts (Man) 3.7 10/cmm (1.6-7.1) 02/01/23 23:40 Band Neutrophils 4.0 % 02/01/23 23:40 Abs Band Neuts (Man) 0.2 10^3/cmm (0.0-1.2) 02/01/23 23:40 Absolute Lymphocytes 0.3 10^3/cmm (1.2-3.4) L 02/01/23 23:40 Lymphocytes (Manual) 7 % 02/01/23 23:40 Monocytes (Manual) 2.0 % 02/01/23 23:40 Absolute Monocytes 0.1 10^3/cmm (0.1-0.6) 02/01/23 23:40 Eosinophils (Manual) 0 % 02/01/23 23:40 Absolute Eosinophils 0.0 10^3/cmm (0.0-0.7) 02/01/23 23:40 Basophils (Manual) 0.0 % 02/01/23 23:40 Absolute Basophils 0.0 10^3/cmm (0.0-0.2) 02/01/23 23:40 Nucleated RBCs # 0.0 /100WBC 02/06/23 06:52 Toxic Granulation 1+ H 02/01/23 23:40 Toxic Vacuolation Trace 02/01/23 23:40 Platelet Estimate Normal (Normal) 02/01/23 23:40 Giant Platelets Trace 02/01/23 23:40 Macrocytosis Trace 02/01/23 23:40 PT 15.70 SECONDS (12.1-14.9) H 02/01/23 23:40 INR 1.21 (0.8-1.2) H 02/01/23 23:40 APTT 29.5 SECONDS (23.9-36.7) 02/01/23 23:40 Sodium 141 mmol/L (136-145) 02/06/23 06:52 Potassium 3.4 mmol/L (3.5-5.1) L 02/06/23 06:52 Chloride 107 mmol/L (98-107) 02/06/23 06:52 Carbon Dioxide 25 mmol/L (22-29) 02/06/23 06:52 Anion Gap 12.4 (5-19) 02/06/23 06:52 BUN 37 mg/dL (8-23) H 02/06/23 06:52 Creatinine 1.7 mg/dL (0.7-1.2) H 02/06/23 06:52 GFR Calculation Not Reportable 02/06/23 06:52 Glucose 132 mg/dL (65-115) H 02/06/23 06:52 POC Glucose 174 mg/dL (70-110) H 02/06/23 11:30 Calculated Osmolality 303 mOsm/kg (285-295) H 02/06/23 06:52 Lactic Acid 1.6 mmol/L (0.5-2.2) 02/01/23 23:40 Calcium 8.5 mg/dL (8.5-10.5) 02/06/23 06:52 Phosphorus 2.5 mg/dL (2.5-4.5) 02/04/23 04:15 Magnesium 2.4 mg/dL (1.7-2.3) H 02/04/23 04:15 Total Bilirubin 0.2 mg/dL (0.15-1.2) 02/06/23 06:52 AST 22 U/L (0-40) 02/06/23 06:52 ALT 23 U/L (0-41) 02/06/23 06:52 Alkaline Phosphatase 56 U/L (40-130) 02/06/23 06:52 Troponin T Gen 5 ng/L 33 ng/L (0-15) H 02/04/23 04:15 Troponin T Baseline 33 ng/L (0-15) H 02/04/23 17:20 Troponin T 120 Minute 27.88 ng/L (0-15) H 02/04/23 19:37 Delta Troponin T -5.12 ABS# (0-10) L 02/04/23 19:37 Troponin T Hi Sens 6Hr 28.89 ng/L (0-15) H 02/04/23 22:23 Troponin T Hi Sens 6Hr Delta -4.11 ng/L (0-12) L 02/04/23 22:23 NT-Pro-B Natriuret Pep 59388 pg/mL (0-450) H 02/04/23 04:15 Total Protein 4.1 g/dL (6.6-8.7) L 02/06/23 06:52 Albumin 2.7 g/dL (3.5-5.2) L 02/06/23 06:52 Globulin 1.4 g/dL (1.3-4.6) 02/06/23 06:52 Urine Color Yellow (Yellow) 02/02/23 09:50 Urine Appearance Clear (CLEAR) 02/02/23 09:50 Urine pH 5 (5-7) 02/02/23 09:50 Ur Specific [place] 1.020 (1.005-1.030) 02/02/23 09:50 Urine Protein Neg (Negative) 02/02/23 09:50 Urine Glucose (UA) Norm (Normal) 02/02/23 09:50 Urine Ketones Negative (Negative) 02/02/23 09:50 Urine Blood Neg (Negative) 02/02/23 09:50 Urine Nitrate Negative (Negative) 02/02/23 09:50 Urine Bilirubin Neg (Negative) 02/02/23 09:50 Urine Urobilinogen Norm mg/dL (Negative) 02/02/23 09:50 Ur Leukocyte Esterase 2+ (Negative) H 02/02/23 09:50 Urine RBC None /hpf (0-2) 02/02/23 09:50 Urine WBC 10-15 /hpf (0-5) H 02/02/23 09:50 Ur Squamous Epith Cells None /hpf (0-5) 02/02/23 09:50 Amorphous Sediment Not Reportable 02/02/23 09:50 Urine Bacteria Trace /hpf (NONE) 02/02/23 09:50 Procedures Performed Laparoscopic appendectomy Vitals Last Vital Signs Temp 97.1 F L 02/06/23 11:47 Pulse 74 02/06/23 11:47 Resp 19 H 02/06/23 11:47 BP 137/57 02/06/23 11:47 Pulse Ox 98 02/06/23 11:47 O2 Del Method Room Air 02/06/23 11:47 O2 Flow Rate 2 02/05/23 08:00 Discharge Plan Discharge Patient Disposition: Home Health Service Condition: Stable Prescriptions: New hydrocodone-acetaminophen 5-325 mg tablet 1 tab PO Q4H PRN (Reason: pain) Qty: 30 0RF Colace 100 mg capsule 100 mg PO BID Qty: 14 0RF Continued tamsulosin 0.4 mg capsule 0.4 mg PO DAILY Adult Probiotic 3 billion cell capsule 3,000 mmu cells PO DAILY Rx Instructions: administer with a meal folic acid 400 mcg tablet 0.4 mg PO DAILY glucosamine HCl 1,500 mg tablet 1,500 mg PO DAILY Rx Instructions: administer with a meal citalopram [Celexa] 20 mg tablet 20 mg PO DAILY cholecalciferol (vitamin D3) 50 mcg (2,000 unit) capsule 50 mcg PO DAILY multivitamin Tablet 1 tab PO DAILY fluticasone propionate 50 mcg/actuation spray,suspension 2 spray INTRANASAL DAILY Rx Instructions: administer into each nostril aspirin [Adult Aspirin Regimen] 81 mg tablet,delayed release (DR/EC) 81 mg PO DAILY nitroglycerin 0.4 mg tablet, sublingual 0.4 mg sublingual Q5M PRN (Reason: chest pain) 30 Days Qty: 30 3RF Rx Instructions: until response; do not exceed 3 doses per episode oxymetazoline [Afrin (oxymetazoline)] 0.05 % spray,non-aerosol See Rx Instructions intranasal .COMPLEX PRN (Reason: Nasal Congestion) Rx Instructions: 2 to 3 sprays intranasally every 10 to 12 hous PRN; PreserVision AREDS-2 250-90-40-1 mg capsule 1 tab PO BID furosemide 40 mg tablet 40 mg PO DAILY hydralazine 100 mg tablet 100 mg PO TID Qty: 270 3RF pantoprazole 40 mg tablet,delayed release (DR/EC) 40 mg PO DAILY Qty: 90 3RF amlodipine 5 mg tablet 5 mg PO DAILY Qty: 100 3RF Rx Instructions: *Dose reduced simvastatin 40 mg tablet 40 mg PO DAILY Qty: 90 3RF ezetimibe 10 mg tablet 10 mg PO DAILY Qty: 100 3RF clopidogrel 75 mg tablet See Rx Instructions .ROUTE .COMPLEX Qty: 100 3RF Dose Instruction: TAKE 1 TABLET DAILY Rx Instructions: TAKE 1 TABLET DAILY lisinopril 10 mg tablet 10 mg PO DAILY Qty: 100 3RF (DME) diabetic shoes with 3 sets of insoles See Rx Instructions .Route .MEDSUPPLY Qty: 1 0RF Rx Instructions: as directed fenofibrate nanocrystallized [Tricor] 48 mg tablet See Rx Instructions .ROUTE .COMPLEX Qty: 90 3RF Dose Instruction: TAKE 1 TABLET DAILY Rx Instructions: TAKE 1 TABLET DAILY (DME) custom inserts See Rx Instructions .Route .MEDSUPPLY Qty: 1 0RF Rx Instructions: [id number] ondansetron 4 mg film 4 mg PO DAILY PRN (Reason: nausea and vomiting) Qty: 10 0RF carvedilol 25 mg tablet 25 mg PO DAILY Held hydrocodone-acetaminophen 5-325 mg tablet 1 tab PO Q8H PRN (Reason: pain) Qty: 7 0RF Hold Instructions: Resume on 02/11/23. Discharge Orders: Discharge Order (Routine); Ordered 02/06/23 Ordered By: Salbador Soni Other Ambulatory Orders: MCT/Event Monitor 21 Days (Routine) Timeframe: [id number] Facility: [facility] - Location: Radiology Ordered By: Ella Pruett Referrals: [facility] [place] [facility] [place] ([facility]) [Outside] Salbador Soni DO [Physician] - 02/20/23 3:15 pm () Naima Logan PA [Primary Care Provider] - 02/27/23 2:00 pm Discharge Diet: Advance as tolerated Discharge Activity: Limit activity as instructed Patient Instructions: Opioid Safety, Post Anesthesia Care, Pain Management Activity Restrictions/Additional Instructions: Do not soak incisions underwater for 2 weeks. Shower daily. Leave dressing on over drain site for 2 days and then remove Discharge Attestations Time Spent in Discharge Care*: less than 30 min Quality Metrics Clinical Quality Measures [ No reported AMI, CVA or VTE this stay] Coding Level of Care Code Acute Code for Chg Fwd Diagnoses Acute gangrenous appendicitis with perforation and peritonitis K35.32 Status post laparoscopic appendectomy Z90.49
--- NOTE | 2023-02-06 14:42 | PC.NURSE ---
THIS NURSE REMOVED ASIM DRAIN. COVERED WITH 4X4'S.
--- NOTE | 2023-02-06 15:01 | PM.PN ---
Subjective Subjective: Patient has not been wearing nuclear monitoring technician over the past 24 hours as he found this to be restrictive. A twelve-lead EKG was repeated this morning which showed that patient has converted back to sinus rhythm. Overall it appears patient was in a flutter for about 24 hours. Denies any current complaints. He may be getting discharged later today. Medications: Reviewed: Yes Medication Review Details: Generic Name Dose Route Start Last Admin Trade Name Freq PRN Reason Stop Dose Admin Atorvastatin Calci um 20 mg 02/03/23 10:30 02/03/23 11:04 Atorvastatin 40 Mg Tablet PO 20 mg DAILY MISTY Administration Bisacodyl 10 mg 02/03/23 10:25 02/03/23 17:23 Bisacodyl 10 Mg Supp OK 10 mg DAILY MISTY Administration Carvedilol 25 mg 02/03/23 10:30 02/03/23 11:05 Carvedilol 25 Mg Tablet PO 25 mg DAILY MISTY Administration Citalopram Hydrobr omide 20 mg 02/03/23 10:30 02/03/23 11:05 Citalopram 20 Mg Tablet PO 20 mg DAILY MISTY Administration Docusate Sodium 100 mg 02/03/23 18:00 02/03/23 17:23 Docusate Sodium 100 Mg Capsule PO 100 mg BID MISTY Administration Ezetimibe 10 mg 02/03/23 10:30 02/03/23 11:04 Ezetimibe 10 Mg Tablet PO 10 mg DAILY MISTY Administration Fenofibrate 48 mg 02/03/23 10:30 02/03/23 11:05 Fenofibrate 48 M g Tablet PO 48 mg DAILY MISTY Administration Fluticasone Propio laura 2 spray 02/03/23 10:30 02/03/23 11:02 Fluticasone [place]asa l [place] 16gm Btl INTRANASAL 2 spray DAILY MISTY Administration Furosemide 40 mg 02/03/23 10:30 02/03/23 11:05 Furosemide 40 Mg Tablet PO 40 mg DAILY MISTY Administration Heparin Sodium (Po rcine) 5,000 unit 02/02/23 12:13 02/03/23 12:20 Heparin 5,000 Un it/Ml Inj 1 Ml SUBCUT 5,000 unit Q12H MISTY Administration Hydralazine HCl 100 mg 02/03/23 15:00 02/03/23 14:54 Hydralazine 50 M g Tablet PO Not Given TID MISTY Hydromorphone HCl 1 mg 02/02/23 12:13 02/03/23 00:07 Hydromorphone 1 Mg/Ml Inj 1 Ml IVP 1 mg Q3H PRN Administration pain Piperacillin Sod/T azobactam 50 mls @ 12.5 mls /hr 02/02/23 07:30 02/03/23 15:46 Sod 3.375 gm/ So dium Chloride IV 12.5 mls/hr Q8H MISYT Administration Sodium Chloride 1,000 mls @ 100 m ls/hr 02/02/23 12:13 02/03/23 14:56 Sodium Chloride 0.9% IV 100 mls/hr .Q10H MISTY Administration Insulin Human Lisp ro 0 unit 02/02/23 08:00 02/03/23 16:41 Insulin Lispro 1 00 Unit/1 Ml SUBCUT Not Given WM&BEDTIME [facility] Protocol Lisinopril 10 mg 02/03/23 10:30 02/03/23 11:05 Lisinopril 10 Mg Tablet PO 10 mg DAILY MISTY Administration Non-Formulary Medi cation 0.4 mg 02/03/23 10:30 02/03/23 10:53 Folic Acid PO Not Given DAILY MISTY Non-Formulary Medi cation 1,500 mg 02/03/23 10:30 02/03/23 10:53 Glucosamine Hcl PO Not Given DAILY MISTY Pantoprazole Sodiu m 40 mg 02/02/23 02:56 02/03/23 03:42 Pantoprazole 40 Mg Sdv IVP 40 mg Q24H MISTY Administration Polyethylene Glyco l 17 gm 02/03/23 10:25 02/03/23 11:02 Polyethylene Gly col 3350 Pkt 17 Gm PO 17 gm DAILY MISTY Administration Tamsulosin HCl 0.4 mg 02/03/23 10:30 02/03/23 11:04 Tamsulosin 0.4 M g Capsule PO 0.4 mg DAILY MISTY Administration Vitamin D 2,000 unit 02/03/23 10:30 02/03/23 11:05 Cholecalciferol (Vitamin D3) 1,000 Unit Tablet PO 2,000 unit DAILY MISTY Administration Vitals/I&O/Wt Last Vital Signs Temp 97.1 F L 02/06/23 11:47 Pulse 74 02/06/23 11:47 Resp 19 H 02/06/23 11:47 BP 137/57 02/06/23 11:47 Pulse Ox 98 02/06/23 11:47 O2 Del Method Room Air 02/06/23 11:47 O2 Flow Rate 2 02/05/23 08:00 02/06/23 02/06/23 02/06/23 06:59 14:59 22:59 Intake Total 50 / 987.5 498.333 / 498.333 Output Total 400 / 830 Balance -350 / 157.5 473.333 / 473.333 Physical Exam Narrative: General: No acute distress, AO x3 HEENT: PERRLA, pupils bilaterally equal and reactive, pallors not present Chest: Normal vesicular breath sounds, no added sounds, equal good air entry bilaterally CVS: S1-S2 regular, no murmurs, no tachycardia, no gallops, no rubs Abdomen: Soft, mildly distended, ASIM rains in place Neuro: No focal deficits, no facial deformity, AO x3, power 5/5 in all limbs Urinary Catheter Management: Frey: Cath Placed During This Visit: yes, but has since been removed by the nurse Urinary Catheter Date of Insertion: 02/02/23 Urinary Catheter Time of Insertion: 09:40 Date Urinary Catheter Removed: 02/02/23 Time Urinary Catheter Discontinued: 10:28 Data 02/06/23 06:52 02/06/23 06:52 Micro: Microbiology 02/02/23 01:17 Blood Culture - Preliminary Blood A&P Assessment and plan (1) Status post laparoscopic appendectomy: (2) Chronic kidney disease: (3) Hypertension: (4) Type 2 diabetes mellitus: (5) Hx of coronary artery disease: (6) Acute gangrenous appendicitis with perforation and peritonitis: (7) Atrial flutter: Plan (1) Acute appendicitis Patient admitted with acute appendicitis s/p lap appendectomy on 02/02/23 Currently on Zosyn empirically On regular diet , management per surgery (2) New onset A flutter Likely triggered by acute infection and recent surgery Rate currently controlled Patient did not wear telemetry since yesterday. On EKG this morning he is converted into sinus rhythm A flutter lasted for about 24 hours, remained rate controlled. He has no past history of known a flutter. Suspect that currently it was triggered by acute infection and recent surgery. Discussed with his outpatient decontaminator Dr. Mortensen. We will arrange for an event monitor to a certain frequency of aberrant rhythm. Should this be recurrent, he will likely need anticoagulation. Anticoagulation is not initiated at this time as A-flutter was transient. Denies any chest pain, dyspnea, palpitations Troponin series baseline 33, and 27 and then 28. Negative delta's. No acute ST-T wave changes on EKG. Low concern for ACS at this time. Recommend follow-up with cardiology as outpatient. Continued Carvedilol 25 mg po daily Continue home dose of Lasix 40 mg daily Last echocardiogram dating to February 2022 with LVEF of 64% and grade 3 diastolic dysfunction. Trace to mild mitral valve regurgitation. (3) Hx of coronary artery disease: Patient with history of coronary artery disease Past history of abnormal nuclear stress test in 2021.? This is being treated medically currently.? Follow-up with cardiology as outpatient ? (4) Type 2 diabetes mellitus: Sliding scale insulin, mild When diet eventually starts and will need to be consistent carb (5) Hypertension: Continue home dose of lisinopril, hydralazine, carvedilol, amlodipine (5) Chronic kidney disease: Patient with history of chronic kidney disease cr currently at baseline 2.0 --> Improved to 1.7 Attestations Medical Necessity Statement*: Per admitting, event monitor added at the time of discharge Coding Level of Care Code Acute Code for Chg Fwd Diagnoses Status post laparoscopic appendectomy Z90.49 Chronic kidney disease N18.9 Hypertension I10 Type 2 diabetes mellitus E11.9 Hx of coronary artery disease Z86.79 Acute gangrenous appendicitis with perforation and peritonitis K35.32 Atrial flutter I48.92
[2023-02-06 15:05] VITALS: PULSE 84
[2023-02-06 15:37] VITALS: PULSE 84
== END 2023-02-06 15:37 | disposition home health service (06) | DRG 339 ==
LOC: ER 02-02 01:45 → MEDSURG 02-02 02:40
PROVIDERS: Hospitalist; Internal Medicine; Student in an Organized Health Care Education/Training Program; Admitting Provider Internal Medicine; Emergency Provider Family Medicine; PCP Physician Assistant; Visit Provider Surgery
PROC: 0DTJ4ZZ Resection of Appendix, Percutaneous Endoscopic Approach (ICD-10-PCS; CPT 44970; principal; 2023-02-02 09:30)
DX: K35.32 Acute appendicitis with perforation, localized peritonitis, and gangrene, without abscess (principal); I48.92 Unspecified atrial flutter; E11.22 Type 2 diabetes mellitus with diabetic chronic kidney disease; I12.9 Hypertensive chronic kidney disease with stage 1 through stage 4 chronic kidney disease, or unspecified chronic kidney disease; N18.9 Chronic kidney disease, unspecified; I25.10 Atherosclerotic heart disease of native coronary artery without angina pectoris; Z95.1 Presence of aortocoronary bypass graft; Z79.82 Long term (current) use of aspirin; Z79.02 Long term (current) use of antithrombotics/antiplatelets; E78.5 Hyperlipidemia, unspecified; Z87.891 Personal history of nicotine dependence
CPT/HCPCS: 36415; 36416; 51702; 71045; 74177; 80053; 81001; 82962; 83605; 83735; 83880; 84100; 84484; 85007; 85025; 85610; 85730; 87040; 88304; 93005; 96365; 96372; 96375; 99285; C9113; J0330; J1100; J1170; J1644; J1815; J2270; J2405; J2543; J2704; J3010; J3490; J7030; Q3014; Q9967

== ENCOUNTER → 2023-02-20 15:07 | Outpatient (BNVA) | payer MEDICARE, SELFPAY | PROVIDERS: PCP Physician Assistant; Visit Provider Surgery | DX: Z09 Encounter for follow-up examination after completed treatment for conditions other than malignant neoplasm (principal) | CPT/HCPCS: 99024 ==

== ENCOUNTER 2023-03-20 13:07 | Oncology outpatient (recurring) (ONCR) | payer OTHER, SELFPAY ==
[2023-03-20 13:08] VITALS: BP 117/54; PULSE 60; RESP 18; TEMP 36.6; O2SAT 97; BMI 25.5
[2023-03-20 13:23] LABS: Basophils % 0.2 %; Eosinophils # 0.1 10^3/uL (0.0-0.8); Eosinophils % 1.7 %; Hematocrit 30.3 % (37-53); Lymphocytes % 18.3 %; Mean Corpuscular HGB Conc 32.3 g/dL (30-55); Mean Corpuscular Hemoglobin 32.5 pg (27-33); Mean Corpuscular Volume 100.3 fl (82-101); Mean Platelet Volume 9.6 fL (7.4-10.4); Monocytes # 0.4 10^3/uL (0.2-0.9); Monocytes % 7.8 %; Neutrophils # 3.77 10^3/uL (1.8-7.7); Neutrophils % 71.8 %; Nucleated Red Blood Cells % 0 %; Platelet Count 184 10^3/cmm (157-399); Red Blood Count 3.02 10^6/uL (3.85-5.65); Red Cell Distribution Width 13.5 % (12.1-15.1); White Blood Count 5.25 10^3/uL (3.29-11.43)
[2023-03-20 13:40] LABS: Alanine Aminotransferase 13 U/L (0-41); Albumin Level 4.1 g/dL (3.5-5.2); Alkaline Phosphatase 51 U/L (40-130); Anion Gap 14.8 (5-19); Aspartate Amino Transferase 16 U/L (0-40); Blood Urea Nitrogen 61 mg/dL (8-23); Calcium 8.8 mg/dL (8.5-10.5); Carbon Dioxide 22 mmol/L (22-29); Chloride 106 mmol/L (98-107); Ferritin 377 ng/mL (30-400); Globulin 2.4 g/dL (1.3-4.6); Glucose 136 mg/dL (65-115); Iron 81 ug/dL (59-158); Osmolality Calculated 305 mOsm/kg (285-295); Percent Saturation 31.1 % (20-50); Potassium 4.8 mmol/L (3.5-5.1); Sodium 138 mmol/L (136-145); Total Bilirubin 0.3 mg/dL (0.15-1.2); Total Iron Binding Capacity 260 mcg/dl; Total Protein 6.5 g/dL (6.6-8.7); Unsaturated Iron Binding 179 ug/dL (112-347)
== END 2023-04-13 23:59 | disposition home or self-care (01) ==
PROVIDERS: PCP Physician Assistant; Visit Provider Internal Medicine Medical Oncology
DX: D50.9 Iron deficiency anemia, unspecified (principal); D64.9 Anemia, unspecified; Z87.891 Personal history of nicotine dependence; Z53.9 Procedure and treatment not carried out, unspecified reason
CPT/HCPCS: 36415; 80053; 82728; 83540; 83550; 85025; 99214

== ENCOUNTER → 2023-03-25 13:05 | Outpatient (BNVA) | payer MEDICARE, SELFPAY | PROVIDERS: PCP Physician Assistant; Visit Provider Podiatrist Foot & Ankle Surgery | DX: R60.9 Edema, unspecified (principal); G62.9 Polyneuropathy, unspecified; L84 Corns and callosities; E11.9 Type 2 diabetes mellitus without complications; I73.9 Peripheral vascular disease, unspecified; L60.8 Other nail disorders; E11.42 Type 2 diabetes mellitus with diabetic polyneuropathy | CPT/HCPCS: 11721 ==

== ENCOUNTER → 2023-06-24 09:33 | Outpatient (BNVA) | payer MEDICARE, OTHER, SELFPAY | PROVIDERS: PCP Physician Assistant; Visit Provider Internal Medicine Cardiovascular Disease | DX: I73.9 Peripheral vascular disease, unspecified (principal); L84 Corns and callosities; L60.3 Nail dystrophy; I77.9 Disorder of arteries and arterioles, unspecified; I25.118 Atherosclerotic heart disease of native coronary artery with other forms of angina pectoris; I65.23 Occlusion and stenosis of bilateral carotid arteries; I10 Essential (primary) hypertension; E78.5 Hyperlipidemia, unspecified; E11.9 Type 2 diabetes mellitus without complications; D50.8 Other iron deficiency anemias; E11.42 Type 2 diabetes mellitus with diabetic polyneuropathy; R60.9 Edema, unspecified; G62.9 Polyneuropathy, unspecified | CPT/HCPCS: 11721; 99214 ==

== ENCOUNTER 2023-06-26 13:29 | Oncology outpatient (recurring) (ONCR) | payer MEDICARE, OTHER, SELFPAY ==
[2023-06-26 13:37] VITALS: BP 104/51; PULSE 65; RESP 16; TEMP 36.5; O2SAT 97
[2023-06-26 13:55] LABS: Eosinophils # 0.1 10^3/uL (0.0-0.8); Eosinophils % 2.6 %; Hematocrit 30.9 % (37-53); Lymphocytes # 1.6 10^3/uL (0.8-4.8); Lymphocytes % 30.7 %; Mean Corpuscular Hemoglobin 32.4 pg (27-33); Mean Platelet Volume 9.9 fL (7.4-10.4); Monocytes # 0.5 10^3/uL (0.2-0.9); Monocytes % 9.2 %; Neutrophils # 3.03 10^3/uL (1.8-7.7); Neutrophils % 57.1 %; Nucleated Red Blood Cells % 0 %; Platelet Count 161 10^3/cmm (157-399); Red Blood Count 3.06 10^6/uL (3.85-5.65); Red Cell Distribution Width 13.8 % (12.1-15.1); White Blood Count 5.31 10^3/uL (3.29-11.43)
[2023-06-26 14:15] LABS: Alanine Aminotransferase 16 U/L (0-41); Alkaline Phosphatase 53 U/L (40-130); Aspartate Amino Transferase 18 U/L (0-40); Blood Urea Nitrogen 60 mg/dL (8-23); Calcium 8.5 mg/dL (8.5-10.5); Carbon Dioxide 22 mmol/L (22-29); Chloride 104 mmol/L (98-107); Ferritin 330 ng/mL (30-400); Globulin 2.2 g/dL (1.3-4.6); Glucose 118 mg/dL (65-115); Iron 106 ug/dL (59-158); Osmolality Calculated 304 mOsm/kg (285-295); Sodium 138 mmol/L (136-145); Total Bilirubin 0.3 mg/dL (0.15-1.2); Total Iron Binding Capacity 265 mcg/dl; Total Protein 6.2 g/dL (6.6-8.7); Unsaturated Iron Binding 159 ug/dL (112-347)
[2023-06-26 17:26] LABS: Lactate Dehydrogenase 160 U/L (135-225)
[2023-06-26 17:43] LABS: Vitamin B12 631 pg/mL (232-1245)
[2023-06-26 18:33] LABS: Folate Level > 20.0 ng/mL (4.5-32.2)
[2023-06-26 20:48] LABS: Hepatitis A Antibody IgM Non-Reactive (Nonreactive); Hepatitis B Core AB, Total Non-Reactive (Nonreactive); Hepatitis B Surface AB < 3.5 (11.5-1000); Hepatitis B Surface Antigen Non-Reactive (Nonreactive); Hepatitis C Virus Antibody Non-Reactive (Nonreactive)
[2023-06-27 11:30] LABS: PROTEIN, TOTAL 6.1 g/dL (6.1-8.1)
[2023-06-28 10:19] LABS: ALBUMIN 3.9 g/dL (3.8-4.8); ALPHA 1 GLOBULIN 0.2 g/dL (0.2-0.3); ALPHA 2 GLOBULIN 0.7 g/dL (0.5-0.9); BETA 1 GLOBULIN 0.4 g/dL (0.4-0.6); BETA 2 GLOBULIN 0.3 g/dL (0.2-0.5); GAMMA GLOBULIN 0.6 g/dL (0.8-1.7)
[2023-06-28 12:34] LABS: Erythropoietin 6.6 mIU/mL (2.6-18.5)
[2023-06-28 14:24] LABS: KAPPA LIGHT CHAIN, FREE, SERUM 84.2 mg/L (3.3-19.4); KAPPA/LAMBDA LIGHT CHAINS FREE 2.11 (0.26-1.65); LAMBDA LIGHT CHAIN, FREE, SERU 39.9 mg/L (5.7-26.3)
[2023-06-28 15:23] LABS: Creatinine, Random Urine 44 mg/dL (20-320); Protein, Total, Random <4 mg/dL (5-25); Protein/Creatinine Ratio NOTE (0.025-0.148); Protein/Creatinine Ratio NOTE mg/g creat (25-148)
[2023-06-30 19:30] LABS: Copper Level 100 mcg/dL (70-175); Zinc Level, Serum or Plasma 91 mcg/dL (60-130)
[2023-07-02 09:10] LABS: Albumin,Urine Random 0 %; Alpha-1-Globulins Urine Random 0 %; Alpha-2-Globulins Urine Random 0 %; Beta-Globulin,Urine Random 0 %; Gamma Globulin,Urine Random 0 %
[2023-07-02 17:00] LABS: Soluble Transferrin Receptor 0.95 mg/L (0.76-1.76)
== END 2023-07-14 23:59 | disposition home or self-care (01) ==
PROVIDERS: Internal Medicine; PCP Physician Assistant; Visit Provider Internal Medicine Medical Oncology
DX: D50.9 Iron deficiency anemia, unspecified (principal); D64.9 Anemia, unspecified; Z87.891 Personal history of nicotine dependence; N18.9 Chronic kidney disease, unspecified; Z79.899 Other long term (current) drug therapy; Z11.59 Encounter for screening for other viral diseases
CPT/HCPCS: 36415; 80053; 82525; 82570; 82607; 82668; 82728; 82746; 83540; 83550; 83615; 83883; 84155; 84156; 84165; 84166; 84238; 84630; 85025; 86334; 86335; 86705; 86706; 86709; 86803; 87340; 99214

== ENCOUNTER 2023-07-12 12:53 | Outpatient (CLI) | payer MEDICARE, OTHER, SELFPAY ==
--- NOTE | 2023-07-12 13:15 | USCV_ITS ---
Ck Marcus Age: 82 Gender: M : 1940 Exam Date: 07/12/2023 13:10 Ordering Phys: Ronit Mortensen MD ([email or web address]) Technologist: OSMAN [place] [facility] [place] Indication: Stenosis Risk Factors: Previous Vascular Surgery: Right Brachial BP: / Left Brachial BP: / Right Left Velocity (cm/s) Spectral Plaque Velocity (cm/s) Spectral Plaque Syst/Diast Broadening Syst/Diast Broadening 87.10/ 20.90 Prox CCA 136.70/ 28.80 118.00/25.40 Mid CCA 122.30/ 27.00 112.50/23.20 Distal CCA 102.50/ 23.40 133.10/22.90 Prox ICA 129.50/ 19.80 165.50/46.80 Mid ICA 181.70/ 27.00 142.10/39.60 Distal ICA 120.50/ 23.40 144.30 ECA 188.90 1.40 ICA/CCA 1.33 Antegrade Vertebral Antegrade 63.20/ 18.80 cm/s 65.40/ 13.90 cm/s Tri Subclavian Tri 164.0 188.0 0 0 CONCLUSIONS Right ICA stenosis 50-69%. Prior RIGHT CEA. Moderate atheromatous plaque right carotid bulb/ICA. Left ICA stenosis 50-69%. Moderate atheromatous plaque left carotid bulb/ICA. Normal antegrade Doppler flow noted in the right vertebral artery. Normal antegrade Doppler flow noted in the left vertebral artery. Wilberto Giron MD (Electronically Signed) Final Date: 12 July 2023 16:42 S
== END 2023-07-12 12:54 | disposition home or self-care (01) ==
LOC: RAD 12:53
PROVIDERS: PCP Physician Assistant; Visit Provider Internal Medicine Cardiovascular Disease
DX: I65.23 Occlusion and stenosis of bilateral carotid arteries (principal)
CPT/HCPCS: 93880

== ENCOUNTER 2023-07-23 01:59 | Emergency (ER) | payer MEDICARE, OTHER, SELFPAY ==
[2023-07-23 02:10] VITALS: BP 126/46; PULSE 67; RESP 18; TEMP 36.5; O2SAT 96; BMI 25.0
[2023-07-23 02:48] VITALS: BP 126/46; PULSE 61; RESP 18; O2SAT 99
[2023-07-23 03:04] LABS: Add Urine Culture? No; Bacteria Urine TRACE /hpf; Bilirubin Urine Neg (Negative); Blood Urine Neg (Negative); Glucose Urine UA Norm (Normal); Ketones Urine Negative (Negative); Nitrate Urine Negative (Negative); Protein Urine Neg (Negative); Specific Gravity, Urine 1.015 (1.005-1.030); Urine Appearance Clear (CLEAR); Urine Color Yellow (Yellow); Urobilinogen Urine Neg (Negative); pH Urine 5 (5-7)
[2023-07-23 03:18] VITALS: BP 151/52; PULSE 67; RESP 18; O2SAT 98
[2023-07-23 03:21] LABS: Leukocyte Esterase Urine Negative (Negative)
--- NOTE | 2023-07-23 03:26 | XRR_ITS ---
PROCEDURE INFORMATION: Exam: XR Abdomen Exam date and time: 07/23/2023 3:34 AM Age: 82 years old Clinical indication: Constipation TECHNIQUE: Imaging protocol: Radiologic exam of the abdomen. Views: Frontal supine view of the abdomen. 1 View. COMPARISON: CT abdomen pelvis w con* [id number] 02/02/2023 12:36 AM FINDINGS: Heart/Mediastinum: Partially assessed CABG. Gastrointestinal tract: No small bowel dilation or free air identified. The colon is quite fecal filled. Organs: Absent gallbladder. Vasculature: Advanced diffuse vascular calcification noted. Bones/joints: Diffuse DJD. XR/XR abdomen 1V* [id number] IMPRESSION: 1. No small bowel obstruction or free air. 2. Moderate constipation likely.
--- NOTE | 2023-07-23 03:55 | W.ED.MALEGU ---
HPI - Male Genitourinary General: Chief complaint: Urogenital-Male Stated complaint: cant urinate Time Seen by Provider: 07/23/23 02:02 History of Present Illness: 82-year-old male presents emergency department with complaints of urinary retention. He states he is also constipated and has not had a bowel movement 2 days. He states he did attempt to use suppositories with no results. Review of Systems General: Reports: 10 or more systems reviewed and unremarkable except in HPI and below GI: Reports: constipation : Reports: difficulty urinating PFSH ED PFSH: Medical History Anemia BPH loc w urin obs/LUTS Chronic kidney disease Diabetes Elevated PSA Dyslipidemia (high LDL; low HDL) Benign essential HTN Atherosclerotic heart disease of [place] coronary artery with other forms of angina pectoris Bilateral carotid artery stenosis CAD (coronary artery disease) Hyperlipidemia Hypertension Surgical History S/P cholecystectomy (10/2022) Status post laparoscopic appendectomy (02/02/23) Hx of cataract extraction H/O heart bypass surgery S/P right rotator cuff repair History of common carotid artery stent placement Hx of tonsillectomy H/O adenoidectomy Family History Father , at age 83 Cancer prostate Mother , at age 93 Dementia Brother Cancer Other Hyperlipidemia Denies family history of Diabetes CAD (coronary artery disease) Clotting disorder Chronic kidney disease (CKD) Suicide Anesthesia complication Bleeding disorder Lung disease Stroke Social History Smoking and tobacco/nicotine status: former use of tobacco/nicotine Quit status (tobacco/nicotine): has quit using Year quit tobacco: 1994 Former quit date comment: Smoked for 40 years Alcohol intake: never Substance/Drug Use: never Adopted: No Caregiver/support person: No Lives independently: No Household members: spouse Marital status: Current occupational status: retired Physical Exam Narrative: EXAM NARRATIVE: Constitutional: the patient appears well nourished and with normal development. Vital signs reviewed as documented. HENMT: Normocephalic, atraumatic. Extermal ears with normal appearance without drainage. Nose without drainage, normal appearance. Mucus membranes moist. Neck is supple, No jugular venous distension, trachea is midline, no appreciable carotid bruits. No lymphadenopathy. No meningeal signs. Flexion, extension and lateral rotation is without pain. Eyes: Pupils are equal, round, reactive to light and accommodation. No scleral icterus. Extra-ocular movement are intact. Thorax is symmetrical and with equal rise and fall with respirations. Resp: Lungs are clear to auscultation. No wheezes, rales, crackles or ronchi at present. Cardio: Regular rate and rhythm. Positive S1, S2. No appreciable murmurs, rubs or gallops. GI: Abdominal exam reveals normal bowel sounds to all quadrants. No organomegaly. No obvious palpable masses noted. No hepatomegally appreciated. Soft, nontender to palpation. Extremity: Extremities are non-edematous and both femoral and pedal pulses are 2+ and equal bilaterally. Moves all extremities well, sensation in all extremities. Neuro: Alert and oriented x4, person, place, time and situation. Cranial nerves II through XII are grossly intact, there is no focal neurological deficits that I can appreciate at present. Motor strength in the upper and lower extremities are equal and bilateral 5/5. Psych: Cooperative, calm, normal thought process, appropriate judgment. Skin: No lesions, rashes. No gross abnormalities noted. Back: Symmetrical, no obvious deformity, No CVA tenderness Course Vital Signs: Vital signs: Vital Signs Temperature 97.7 F 07/23/23 02:10 Pulse Rate 67 07/23/23 03:18 Respiratory Rate 18 07/23/23 03:18 Blood Pressure 151/52 07/23/23 03:18 Pulse Oximetry 98 07/23/23 03:18 Oxygen Delivery Me thod Room Air 07/23/23 02:10 MDM - Male Medical Decision Making Physical exam completed and documented, I will obtain a abdominal plain film to evaluate the patient's constipation and also provide him a Frey catheter to relieve his urinary retention. I suspect most likely his urinary retention is secondary to BPH and complicated by his constipation. Medical Records I reviewed the patient's medical records. Lab Data I reviewed the patient's lab results. Laboratory Results Urine Color Yellow (Yellow) 07/23/23 02:30 Urine Appearance Clear (CLEAR) 07/23/23 02:30 Urine pH 5 (5-7) 07/23/23 02:30 Ur Specific [place] 1.015 (1.005-1.030) 07/23/23 02:30 Urine Protein Neg (Negative) 07/23/23 02:30 Urine Glucose (UA) Norm (Normal) 07/23/23 02:30 Urine Ketones Negative (Negative) 07/23/23 02:30 Urine Blood Neg (Negative) 07/23/23 02:30 Urine Nitrate Negative (Negative) 07/23/23 02:30 Urine Bilirubin Neg (Negative) 07/23/23 02:30 Urine Urobilinogen Neg mg/dL (Negative) 07/23/23 02:30 Ur Leukocyte Esterase Negative (Negative) 07/23/23 02:30 Urine RBC None /hpf (0-2) 07/23/23 02:30 Urine WBC None /hpf (0-5) 07/23/23 02:30 Ur Squamous Epith Cells None /hpf (0-5) 07/23/23 02:30 Amorphous Sediment Not Reportable 07/23/23 02:30 Urine Bacteria Trace /hpf (NONE) 07/23/23 02:30 All radiology interpretation(s) finalized by discharge Discharge Plan Discharge Patient Disposition: Home Clinical Impression: Acute urinary retention, Acute constipation Condition: Stable Prescriptions: New sennosides-docusate sodium [Senna-S] 8.6-50 mg tablet 2 tab-cap PO BID Qty: 60 0RF No Action tamsulosin 0.4 mg capsule 0.4 mg PO DAILY Adult Probiotic 3 billion cell capsule 3,000 mmu cells PO DAILY Rx Instructions: administer with a meal folic acid 400 mcg tablet 0.4 mg PO DAILY glucosamine HCl 1,500 mg tablet 1,500 mg PO DAILY Rx Instructions: administer with a meal citalopram [Celexa] 20 mg tablet 20 mg PO DAILY cholecalciferol (vitamin D3) 50 mcg (2,000 unit) capsule 50 mcg PO DAILY multivitamin Tablet 1 tab PO DAILY fluticasone propionate 50 mcg/actuation spray,suspension 2 spray INTRANASAL DAILY Rx Instructions: administer into each nostril aspirin [Adult Aspirin Regimen] 81 mg tablet,delayed release (DR/EC) 81 mg PO DAILY nitroglycerin 0.4 mg tablet, sublingual 0.4 mg sublingual Q5M PRN (Reason: chest pain) 30 Days Qty: 30 3RF Rx Instructions: until response; do not exceed 3 doses per episode oxymetazoline [Afrin (oxymetazoline)] 0.05 % spray,non-aerosol See Rx Instructions intranasal .COMPLEX PRN (Reason: Nasal Congestion) Rx Instructions: 2 to 3 sprays intranasally every 10 to 12 hous PRN; PreserVision AREDS-2 250-90-40-1 mg capsule 1 tab PO BID (DME) diabetic shoes with 3 inserts See Rx Instructions .Route .MEDSUPPLY Qty: 1 0RF Rx Instructions: As directed to the shoe vasiliy furosemide 40 mg tablet 40 mg PO DAILY hydralazine 100 mg tablet 100 mg PO TID Qty: 270 3RF pantoprazole 40 mg tablet,delayed release (DR/EC) 40 mg PO DAILY Qty: 90 3RF ezetimibe 10 mg tablet 10 mg PO DAILY Qty: 100 3RF (DME) diabetic shoes with 3 sets of insoles See Rx Instructions .Route .MEDSUPPLY Qty: 1 0RF Rx Instructions: as directed fenofibrate nanocrystallized [Tricor] 48 mg tablet See Rx Instructions .ROUTE .COMPLEX Qty: 90 3RF Dose Instruction: TAKE 1 TABLET DAILY Rx Instructions: TAKE 1 TABLET DAILY (DME) custom inserts See Rx Instructions .Route .MEDSUPPLY Qty: 1 0RF Rx Instructions: 5514 amlodipine 5 mg tablet 5 mg PO DAILY Qty: 100 3RF Rx Instructions: *Dose reduced simvastatin 40 mg tablet 40 mg PO DAILY Qty: 90 3RF clopidogrel 75 mg tablet See Rx Instructions .ROUTE .COMPLEX Qty: 90 3RF Dose Instruction: TAKE 1 TABLET DAILY Rx Instructions: TAKE 1 TABLET DAILY lisinopril 10 mg tablet See Rx Instructions .ROUTE .COMPLEX Qty: 100 3RF Dose Instruction: TAKE 1 TABLET DAILY Rx Instructions: TAKE 1 TABLET DAILY carvedilol 25 mg tablet 25 mg PO DAILY Colace 100 mg capsule 100 mg PO BID Qty: 14 0RF Discharge Orders: Discharge ED (Routine); Ordered 07/23/23 Ordered By: Jerson Trujillo Referrals: Naima Logan PA [Primary Care Provider] - Discharge Diet: Advance as tolerated Discharge Activity: Resume usual activity Patient Instructions: Opioid Safety, Pain Management Activity Restrictions/Additional Instructions: Activity Restrictions/Additional Instructions: Thank you for choosing [facility] for your healthcare needs today. Please realize that you were seen in the Emergency Department and that we are providing you with an emergency medical screening exam and this may not be a complete and all inclusive of all the testing and or medical work-up that you may need to determine your ailment or severity of your illness. It is very important that you follow-up as instructed with your Primary care provider or Specialist for additional evaluation and to discuss your medical treatment plan. You may return to the Emergency Department should you have concerns or if your condition changes or worsens in any way. You may call [facility] for follow-up appointment- [facility] [address] [place] [address] Dr.ive [place], [place] [address] Phone--[phone] Coding Level of Care Code ED Label Printer for Nimesh Matos
[2023-07-23 04:52] VITALS: BP 147/78; PULSE 70; RESP 20; O2SAT 97
== END 2023-07-23 04:54 | disposition home or self-care (01) ==
PROVIDERS: Emergency Provider Internal Medicine; PCP Physician Assistant
DX: R33.9 Retention of urine, unspecified (principal); K59.00 Constipation, unspecified; Z79.02 Long term (current) use of antithrombotics/antiplatelets; Z79.82 Long term (current) use of aspirin; Z87.891 Personal history of nicotine dependence; E11.22 Type 2 diabetes mellitus with diabetic chronic kidney disease; I12.9 Hypertensive chronic kidney disease with stage 1 through stage 4 chronic kidney disease, or unspecified chronic kidney disease; N18.9 Chronic kidney disease, unspecified; E78.5 Hyperlipidemia, unspecified; I25.10 Atherosclerotic heart disease of native coronary artery without angina pectoris
CPT/HCPCS: 51702; 74018; 81001; 99284

== ENCOUNTER → 2023-09-16 09:36 | Outpatient (BNVA) | payer MEDICARE, OTHER, SELFPAY | PROVIDERS: PCP Physician Assistant; Visit Provider Podiatrist Foot & Ankle Surgery | DX: L60.3 Nail dystrophy (principal); R60.9 Edema, unspecified; G62.9 Polyneuropathy, unspecified; L84 Corns and callosities; I73.9 Peripheral vascular disease, unspecified; E11.42 Type 2 diabetes mellitus with diabetic polyneuropathy | CPT/HCPCS: 11056; 11721 ==

== ENCOUNTER 2023-09-30 15:22 | Oncology outpatient (recurring) (ONCR) | payer MEDICARE, OTHER, SELFPAY ==
[2023-09-27 11:29] LABS: Basophils % 0.4 %; Eosinophils # 0.1 10^3/uL (0.0-0.8); Eosinophils % 2.7 %; Hematocrit 32.7 % (37-53); Lymphocytes # 1.3 10^3/uL (0.8-4.8); Lymphocytes % 27.4 %; Mean Corpuscular HGB Conc 32.1 g/dL (30-55); Mean Corpuscular Hemoglobin 32.1 pg (27-33); Monocytes # 0.4 10^3/uL (0.2-0.9); Monocytes % 8.5 %; Neutrophils # 2.92 10^3/uL (1.8-7.7); Neutrophils % 60.8 %; Nucleated Red Blood Cells % 0 %; Platelet Count 161 10^3/cmm (157-399); Red Blood Count 3.27 10^6/uL (3.85-5.65); Red Cell Distribution Width 14.3 % (12.1-15.1); White Blood Count 4.81 10^3/uL (3.29-11.43)
[2023-09-27 11:49] LABS: Alanine Aminotransferase 14 U/L (0-41); Albumin Level 3.9 g/dL (3.5-5.2); Alkaline Phosphatase 53 U/L (40-130); Anion Gap 14.6 (5-19); Aspartate Amino Transferase 18 U/L (0-40); Blood Urea Nitrogen 34 mg/dL (8-23); Calcium 8.6 mg/dL (8.5-10.5); Carbon Dioxide 22 mmol/L (22-29); Chloride 109 mmol/L (98-107); Globulin 1.9 g/dL (1.3-4.6); Glucose 132 mg/dL (65-115); Lactate Dehydrogenase 168 U/L (135-225); Osmolality Calculated 301 mOsm/kg (285-295); Potassium 4.6 mmol/L (3.5-5.1); Sodium 141 mmol/L (136-145); Total Bilirubin 0.2 mg/dL (0.15-1.2); Total Protein 5.8 g/dL (6.6-8.7)
== END 2023-10-13 23:59 | disposition home or self-care (01) ==
PROVIDERS: PCP Physician Assistant; Visit Provider Internal Medicine Medical Oncology
DX: D50.9 Iron deficiency anemia, unspecified (principal); Z79.899 Other long term (current) drug therapy
CPT/HCPCS: 36415; 80053; 83615; 85025; 99214

== ENCOUNTER 2023-10-18 11:33 | Outpatient (CLI) | payer OTHER, SELFPAY ==
--- NOTE | 2023-10-18 11:38 | USCV_ITS ---
Ck Marcus Age: 82 Gender: M : 1940 Exam Date: 10/18/2023 11:53 Ordering Phys: Naima Logan Technologist: CT Exam Location: [facility] [place]_ Indication: pvd Risk Factors: Previous Vascular Surgery: RIGHT LEFT BP: 128.0 / 65.00 BP: 139.0/ 61.00 0 0 Waveform Velocity (cm/s) Velocity (cm/s) Waveform Biphasic 137.1 Iliac Prox 152.7 Biphasic Biphasic 173.1 Iliac Mid 157.9 Biphasic Biphasic Iliac Distal Biphasic 218.6 170.7 Biphasic 234.0 MEDICAL LAB TECHNICIAN 202.0 Biphasic Monophasic 177.0 SFA Prox 269.0 Biphasic Monophasic 236.0 SFA Mid 231.0 Biphasic Monophasic 211.0 SFA Dist 192.0 Biphasic Monophasic 85.0 POP 158.0 Biphasic Monophasic 64.0 PEARL RESTORER 135.0 Monophasic Monophasic 61.0 DPA 0.0 N/A 0.8 LISETTE 0.8 FINDINGS Resting LISETTE of 0.8 bilaterally Moderate dense irregular plaques diffusely in the iliac, femoral and popliteal arteries bilaterally No flow was detected in the left dorsalis pedis artery CONCLUSIONS 1. Abnormal resting ABIs bilaterally, suggesting mild to moderate peripheral arterial disease 2. Moderate diffuse dense irregular plaques bilaterally 3. Possible occlusion of the dorsalis pedis artery on the left side Compared to the study from 04/30/2022, there is progression of disease on the left side. The occlusion of the dorsalis pedis artery on the left side appears to be new. Dr Ronit Mortensen MD [facility] (Electronically Signed) Final Date: 18 October 2023 20:48 S
== END 2023-10-18 11:34 | disposition home or self-care (01) ==
LOC: RAD 11:33
PROVIDERS: PCP Physician Assistant; Visit Provider Physician Assistant
DX: M79.662 Pain in left lower leg (principal); M79.661 Pain in right lower leg
CPT/HCPCS: 93925

== ENCOUNTER 2023-11-04 13:45 | Outpatient (CLI) | payer OTHER, SELFPAY ==
--- NOTE | 2023-11-04 13:51 | MR_ITS ---
WS: [id number] MRI LUMBAR SPINE NONCONTRAST TECHNIQUE: Sagittal T1, T2 and STIR imaging. Axial T1 and T2 imaging. CLINICAL INFORMATION: NEUROGENIC CLAUDICATION COMPARISON: MRI 11/20/2019 FINDINGS: Mild lumbar curve. No acute compression. Slightly progressed grade 1 anterolisthesis L5 on S1. Stable chronic compression with anterior wedging at L1. Loss of approximately 50% vertebral body height. No retropulsion. Disc bulging worse at L4-L5 and L5-S1. L1-L2: Minimal disc bulging. Mild facet arthropathy. Spinal canal and foramen are patent. L2-L3: Mild annular bulging. Mild facet arthropathy. Spinal canal and foramen are patent. L3-L4: Mild annular bulging. Slight narrowing of the subarticular recess bilaterally. Slight impingem ent traversing L4 nerve roots with mild central canal stenosis. Moderate facet arthropathy. RIGHT for aminal protrusion with mild RIGHT foraminal narrowing. LEFT foramen is patent. Mild central canal imani nosis slightly progressed compared to previous. L4-L5: Mild disc bulging in combination with facet arthropathy and ligamentum flavum hypertrophy resu lts in moderate central canal stenosis. Impingement traversing L5 nerve roots bilaterally. Moderate f acet arthropathy. Mild RIGHT greater than LEFT foraminal narrowing. L5-S1: Grade 1 anterolisthesis. Disc bulging impinges the traversing S1 nerve roots bilaterally. Mild central canal stenosis appears slightly progressed. Moderate to advanced facet arthropathy .Small LE FT greater than RIGHT facet effusions. Moderate progressed LEFT and mild RIGHT foraminal narrowing. Visualized pelvic bony structures: Normal. Paravertebral soft tissues: Normal. Partially visualized bilateral renal cysts and peripelvic cysts. IMPRESSION: 1. Mild lumbar curve. Stable chronic compression L1 vertebral body. 2. Grade 1 anterolisthesis L5 on S1 slightly progressed with progressed mild central canal stenosis and progressed moderate LEFT foraminal narrowing at this level. 3. Central disc protrusion L5-S1 impinges the traversing S1 nerve roots bilaterally. 4. Moderate central canal stenosis L4-5 with impingement on traversing L5 nerve roots is unchanged. Mild RIGHT L4-5 foraminal narrowing. 5. Mild central canal stenosis L3-4 slightly progressed compared to previous with narrowing of the s ubarticular recess bilaterally. 6. Moderate facet arthropathy L4-L5 and advanced facet arthropathy L5-S1.
== END 2023-11-04 13:46 | disposition home or self-care (01) ==
LOC: RAD 13:46
PROVIDERS: PCP Physician Assistant; Visit Provider Physician Assistant
DX: M48.062 Spinal stenosis, lumbar region with neurogenic claudication (principal); M51.27 Other intervertebral disc displacement, lumbosacral region; M47.817 Spondylosis without myelopathy or radiculopathy, lumbosacral region
CPT/HCPCS: 72148

== ENCOUNTER → 2023-11-18 11:23 | Outpatient (BNVA) | payer MEDICARE, OTHER, SELFPAY | PROVIDERS: PCP Physician Assistant; Visit Provider Podiatrist Foot & Ankle Surgery | DX: L60.3 Nail dystrophy (principal); R60.9 Edema, unspecified; G62.9 Polyneuropathy, unspecified; L84 Corns and callosities; I73.9 Peripheral vascular disease, unspecified; E11.42 Type 2 diabetes mellitus with diabetic polyneuropathy | CPT/HCPCS: 11721 ==

== ENCOUNTER → 2023-12-24 10:44 | Outpatient (BNVA) | payer MEDICARE, OTHER, SELFPAY | PROVIDERS: PCP Physician Assistant; Visit Provider Internal Medicine Cardiovascular Disease | DX: I25.118 Atherosclerotic heart disease of native coronary artery with other forms of angina pectoris (principal); E78.5 Hyperlipidemia, unspecified; I65.23 Occlusion and stenosis of bilateral carotid arteries; I73.9 Peripheral vascular disease, unspecified; M79.89 Other specified soft tissue disorders; Z87.891 Personal history of nicotine dependence; I12.9 Hypertensive chronic kidney disease with stage 1 through stage 4 chronic kidney disease, or unspecified chronic kidney disease; N18.9 Chronic kidney disease, unspecified | CPT/HCPCS: 99214 ==

== ENCOUNTER 2023-12-25 15:22 | Outpatient (CLI) | payer MEDICARE, OTHER, SELFPAY ==
[2023-12-25 17:03] LABS: Anion Gap 16.4 (5-19); Blood Urea Nitrogen 37 mg/dL (8-23); Calcium 8.9 mg/dL (8.5-10.5); Carbon Dioxide 25 mmol/L (22-29); Chloride 102 mmol/L (98-107); Glucose 106 mg/dL (65-115); NT Pro B Type Natriuretic Pept 1520 pg/mL (0-450); Osmolality Calculated 297 mOsm/kg (285-295); Potassium 4.4 mmol/L (3.5-5.1); Sodium 139 mmol/L (136-145)
== END 2023-12-25 15:23 | disposition home or self-care (01) ==
LOC: LAB 15:25
PROVIDERS: PCP Physician Assistant; Visit Provider Internal Medicine Cardiovascular Disease
DX: R06.02 Shortness of breath (principal)
CPT/HCPCS: 36415; 80048; 83880

== ENCOUNTER 2024-01-01 15:05 | Oncology outpatient (recurring) (ONCR) | payer MEDICARE, OTHER, SELFPAY ==
[2023-12-31 15:42] LABS: Basophils % 0.2 %; Eosinophils # 0.1 10^3/uL (0.0-0.8); Eosinophils % 2.8 %; Hematocrit 31.8 % (37-53); Lymphocytes # 1.5 10^3/uL (0.8-4.8); Lymphocytes % 29.9 %; Mean Corpuscular Hemoglobin 32.6 pg (27-33); Mean Corpuscular Volume 98.8 fl (82-101); Mean Platelet Volume 9.9 fL (7.4-10.4); Monocytes # 0.5 10^3/uL (0.2-0.9); Neutrophils % 57.9 %; Nucleated Red Blood Cells % 0 %; Platelet Count 173 10^3/cmm (157-399); Red Blood Count 3.22 10^6/uL (3.85-5.65); Red Cell Distribution Width 13.8 % (12.1-15.1); White Blood Count 5.01 10^3/uL (3.29-11.43)
[2023-12-31 15:58] LABS: Alanine Aminotransferase 14 U/L (0-41); Albumin Level 3.9 g/dL (3.5-5.2); Alkaline Phosphatase 52 U/L (40-130); Anion Gap 14.5 (5-19); Aspartate Amino Transferase 18 U/L (0-40); Blood Urea Nitrogen 39 mg/dL (8-23); Calcium 8.7 mg/dL (8.5-10.5); Carbon Dioxide 24 mmol/L (22-29); Chloride 104 mmol/L (98-107); Ferritin 147 ng/mL (30-400); Globulin 2.2 g/dL (1.3-4.6); Glucose 112 mg/dL (65-115); Iron 79 ug/dL (59-158); Osmolality Calculated 296 mOsm/kg (285-295); Percent Saturation 30.5 % (20-50); Potassium 4.5 mmol/L (3.5-5.1); Sodium 138 mmol/L (136-145); Total Bilirubin 0.2 mg/dL (0.15-1.2); Total Iron Binding Capacity 259 mcg/dl; Total Protein 6.1 g/dL (6.6-8.7); Unsaturated Iron Binding 180 ug/dL (112-347)
[2024-01-01 12:30] LABS: KAPPA LIGHT CHAIN, FREE, SERUM 46.3 mg/L (3.3-19.4); KAPPA/LAMBDA LIGHT CHAINS FREE 1.61 (0.26-1.65); LAMBDA LIGHT CHAIN, FREE, SERU 28.8 mg/L (5.7-26.3)
[2024-01-01 13:10] LABS: PROTEIN, TOTAL 5.7 g/dL (6.1-8.1)
[2024-01-01 15:33] LABS: ALBUMIN 3.6 g/dL (3.8-4.8); ALPHA 1 GLOBULIN 0.2 g/dL (0.2-0.3); ALPHA 2 GLOBULIN 0.7 g/dL (0.5-0.9); BETA 1 GLOBULIN 0.4 g/dL (0.4-0.6); BETA 2 GLOBULIN 0.3 g/dL (0.2-0.5); GAMMA GLOBULIN 0.6 g/dL (0.8-1.7)
[2024-01-02 14:13] LABS: Creatinine, Random Urine 67 mg/dL (20-320); Protein, Total, Random 9 mg/dL (5-25); Protein/Creatinine Ratio 0.134 (0.025-0.148); Protein/Creatinine Ratio 134 mg/g creat (25-148)
[2024-01-03 12:23] LABS: Albumin,Urine Random 100 %; Alpha-1-Globulins Urine Random 0 %; Alpha-2-Globulins Urine Random 0 %; Beta-Globulin,Urine Random 0 %; Gamma Globulin,Urine Random 0 %
[2024-01-06 20:23] LABS: Immunofixation Serum Normal pattern.
== END 2024-01-12 23:59 | disposition home or self-care (01) ==
PROVIDERS: Internal Medicine; Nurse Practitioner Family; PCP Physician Assistant; Visit Provider Internal Medicine Medical Oncology
DX: D50.9 Iron deficiency anemia, unspecified (principal)
CPT/HCPCS: 36415; 80053; 82570; 82728; 83540; 83550; 83883; 84155; 84156; 84165; 84166; 85025; 86334; 86335; 99213

== ENCOUNTER → 2024-01-23 12:59 | Outpatient (BNVA) | payer MEDICARE, OTHER, SELFPAY | PROVIDERS: PCP Physician Assistant; Visit Provider Podiatrist Foot & Ankle Surgery | DX: L60.3 Nail dystrophy (principal); R60.9 Edema, unspecified; G62.9 Polyneuropathy, unspecified; L84 Corns and callosities; I73.9 Peripheral vascular disease, unspecified; B35.3 Tinea pedis; E11.42 Type 2 diabetes mellitus with diabetic polyneuropathy | CPT/HCPCS: 11721; 99213 ==

== ENCOUNTER → 2024-03-30 13:18 | Outpatient (BNVA) | payer MEDICARE, OTHER, SELFPAY | PROVIDERS: PCP Physician Assistant; Visit Provider Podiatrist Foot & Ankle Surgery | DX: L60.3 Nail dystrophy (principal); G62.9 Polyneuropathy, unspecified; L84 Corns and callosities; I73.9 Peripheral vascular disease, unspecified; B35.3 Tinea pedis; E11.42 Type 2 diabetes mellitus with diabetic polyneuropathy | CPT/HCPCS: 11721 ==

== ENCOUNTER 2024-04-09 13:28 | Oncology outpatient (recurring) (ONCR) | payer MEDICARE, OTHER, SELFPAY ==
[2024-04-09 14:00] LABS: Basophils % 0.4 %; Eosinophils # 0.1 10^3/uL (0.0-0.8); Eosinophils % 2.4 %; Hematocrit 33.1 % (37-53); Lymphocytes # 1.2 10^3/uL (0.8-4.8); Lymphocytes % 21.3 %; Mean Corpuscular HGB Conc 32.6 g/dL (30-55); Mean Corpuscular Hemoglobin 32.1 pg (27-33); Mean Corpuscular Volume 98.5 fl (82-101); Mean Platelet Volume 9.9 fL (7.4-10.4); Monocytes # 0.4 10^3/uL (0.2-0.9); Monocytes % 6.7 %; Neutrophils # 3.73 10^3/uL (1.8-7.7); Neutrophils % 68.8 %; Nucleated Red Blood Cells % 0 %; Platelet Count 184 10^3/cmm (157-399); Red Blood Count 3.36 10^6/uL (3.85-5.65); White Blood Count 5.41 10^3/uL (3.29-11.43)
[2024-04-09 14:06] LABS: Alanine Aminotransferase 13 U/L (0-41); Albumin Level 3.9 g/dL (3.5-5.2); Alkaline Phosphatase 51 U/L (40-130); Anion Gap 13.3 (5-19); Aspartate Amino Transferase 17 U/L (0-40); Blood Urea Nitrogen 29 mg/dL (8-23); Calcium 8.3 mg/dL (8.5-10.5); Carbon Dioxide 25 mmol/L (22-29); Chloride 104 mmol/L (98-107); Ferritin 47 ng/mL (30-400); Globulin 2.2 g/dL (1.3-4.6); Glucose 144 mg/dL (65-115); Iron 117 ug/dL (59-158); Osmolality Calculated 294 mOsm/kg (285-295); Percent Saturation 39.6 % (20-50); Potassium 4.3 mmol/L (3.5-5.1); Sodium 138 mmol/L (136-145); Total Bilirubin 0.3 mg/dL (0.15-1.2); Total Iron Binding Capacity 295 mcg/dl; Total Protein 6.1 g/dL (6.6-8.7); Unsaturated Iron Binding 178 ug/dL (112-347)
[2024-04-09 15:08] LABS: Folate Level > 20.0 ng/mL (4.5-32.2)
[2024-04-10 08:39] LABS: PROTEIN, TOTAL 5.7 g/dL (6.1-8.1)
[2024-04-13 10:20] LABS: ALBUMIN 3.6 g/dL (3.8-4.8); ALPHA 1 GLOBULIN 0.2 g/dL (0.2-0.3); ALPHA 2 GLOBULIN 0.7 g/dL (0.5-0.9); BETA 1 GLOBULIN 0.4 g/dL (0.4-0.6); BETA 2 GLOBULIN 0.3 g/dL (0.2-0.5); GAMMA GLOBULIN 0.5 g/dL (0.8-1.7)
[2024-04-13 19:19] LABS: Immunofixation Serum Normal pattern.
[2024-04-14 13:45] LABS: KAPPA LIGHT CHAIN, FREE, SERUM 40.3 mg/L (3.3-19.4); KAPPA/LAMBDA LIGHT CHAINS FREE 1.34 (0.26-1.65); LAMBDA LIGHT CHAIN, FREE, SERU 30.1 mg/L (5.7-26.3)
== END 2024-04-13 23:59 | disposition home or self-care (01) ==
PROVIDERS: Nurse Practitioner; PCP Physician Assistant; Visit Provider Internal Medicine Medical Oncology
DX: E11.22 Type 2 diabetes mellitus with diabetic chronic kidney disease; N18.9 Chronic kidney disease, unspecified; D63.1 Anemia in chronic kidney disease; Z87.891 Personal history of nicotine dependence; D50.8 Other iron deficiency anemias; Z79.899 Other long term (current) drug therapy
CPT/HCPCS: 36415; 80053; 82728; 82746; 83540; 83550; 83883; 84155; 84165; 85025; 86334; 99214

== ENCOUNTER → 2024-06-01 13:28 | Outpatient (BNVA) | payer MEDICARE, OTHER, SELFPAY | PROVIDERS: PCP Physician Assistant; Visit Provider Podiatrist Foot & Ankle Surgery | DX: L60.3 Nail dystrophy (principal); G62.9 Polyneuropathy, unspecified; L84 Corns and callosities; I73.9 Peripheral vascular disease, unspecified; B35.3 Tinea pedis; E11.42 Type 2 diabetes mellitus with diabetic polyneuropathy | CPT/HCPCS: 11721 ==

== ENCOUNTER 2024-07-18 13:08 | Emergency (ER) | payer MEDICARE, OTHER, SELFPAY ==
[2024-07-18 13:12] VITALS: BP 161/60; PULSE 88; RESP 18; TEMP 37.7; O2SAT 91; BMI 26.6
--- NOTE | 2024-07-18 13:12 | XRR_ITS ---
PROCEDURE INFORMATION: Exam: XR Chest Exam date and time: 07/18/2024 1:42 PM Age: 83 years old Clinical indication: Shortness of breath TECHNIQUE: Imaging protocol: Radiologic exam of the chest. Views: 1 view. COMPARISON: CR XR chest 1V portable [id number] 02/04/2023 5:49 PM FINDINGS: Lungs: Unremarkable. No consolidation. Pleural spaces: Unremarkable. No pleural effusion. No pneumothorax. Heart/Mediastinum: Unremarkable. No cardiomegaly. Bones/joints: Sternotomy wires noted. Rotator cuff anchors noted in the right humeral head. Visualized osseous structures are intact. XR/XR chest 1V portable [id number] IMPRESSION: No acute findings.
--- NOTE | 2024-07-18 13:13 | ECG_ITS ---
[employer] Test Date: 2024-07-18 Pat Name: Ck Marcus Department: Room: Gender: Male [employer]: : 1940 Requested By: Ellen Molina Order Number: [id number] Humberto MD: Ronit Mortensen M.D. Measurements Intervals [place] Rate: 85 P: 54 CO: 174 QRS: 78 QRSD: 94 T: 15 QT: 351 QTc: 419 Interpretive Statements SINUS RHYTHM INCOMPLETE RIGHT BUNDLE BRANCH BLOCK [90+ ms QRS DURATION, TERMINAL R IN V1/V2, 40+ ms S IN I/aVL/V4/V5/V6] POSSIBLE ANTERIOR MYOCARDIAL INFARCTION , PROBABLY OLD [30 ms Q WAVE IN V3/V4, OR R < 0.2 mV IN V4] Diffuse nonspecific T wave change Compared to ECG 02/06/2023 12:45:33 Myocardial infarct finding now present Possible ischemia no longer present Electronically Signed On 07-18-2024 21:23:36 DIRECTOR OF PHARMACY by Ronit Mortensen M.D. [email or web address]
--- NOTE | 2024-07-18 13:38 | ED_ITS ---
HPI - URI/Sore Throat 2 General: Chief Complaint: Upper Respiratory Infection Stated Complaint: sob, weakness Time Seen by Provider: 07/18/24 13:23 History of Present Illness: 83-year-old male presents to the emergen cy room with complaints of shortness of breath and weakness he has had this for about 1 week. He denies any hemoptysis or productive cough no abdominal pain or chest pain. Patient denies any vomiting or diarrhea he has had a bit of a headache and myalgias. Associated symptoms: Deny abdominal pain, chills, chest pain or fever(s) Related Data Home Medications Medication Instructions Recorded Confirmed cholecalciferol (vitamin D3) 50 50 mcg PO DAILY 12/10/19 06/01/24 mcg (2,000 unit) capsule citalopram 20 mg tablet (Celexa) 20 mg PO DAILY 12/10/19 06/01/24 fluticasone propionate 50 2 spray intranasal DAILY 12/10/19 06/01/24 mcg/actuation nasal spray,suspension folic acid 400 mcg tablet 0.4 mg PO DAILY 12/10/19 06/01/24 glucosamine HCl 1,500 mg tablet 1,500 mg PO DAILY 12/10/19 06/01/24 multivitamin 1 tab PO DAILY 12/10/19 06/01/24 tamsulosin 0.4 mg capsule 0.4 mg PO DAILY 12/31/19 06/01/24 lactobacillus combination no.8 3 3,000 mmu cells PO DAILY 06/01/20 06/01/24 billion cell capsule (Adult Probiotic) aspirin 81 mg tablet,delayed 81 mg PO DAILY 05/25/21 06/01/24 release (Adult Aspirin Regimen) oxymetazoline 0.05 % nasal spray See Rx Instructions intranasal 09/12/22 06/01/24 (Afrin (oxymetazoline)) .COMPLEX PRN Nasal Congestion vit C 250 mg-vit E 90 mg-zinc 40 1 tab PO BID 09/12/22 06/01/24 mg-copper 1 [id number] capsule (PreserVision AREDS-2) bumetanide 0.5 mg tablet 0.5 mg PO DAILY 12/24/23 06/01/24 Previous Rx's Medication Instructions Recorded pantoprazole 40 mg tablet,delayed 40 mg PO DAILY #90 tabs 01/27/20 release nitroglycerin 0.4 mg sublingual 0.4 mg sublingual Q5M PRN chest 03/12/22 tablet pain 30 days #30 tabs diabetic shoes with 3 sets of #1 ea 06/26/22 insoles custom inserts #1 ea 09/25/22 docusate sodium 100 mg capsule 100 mg PO BID #14 caps 02/06/23 (Colace) amlodipine 5 mg tablet 5 mg PO DAILY HTN #100 tabs 04/22/23 simvastatin 40 mg tablet 40 mg PO DAILY #90 tabs 04/26/23 lisinopril 10 mg tablet See Rx Instructions .Route 05/29/23 .COMPLEX #100 tabs diabetic shoes with 3 inserts #1 ea 06/24/23 sennosides 8.6 mg-docusate sodium 2 tab-cap (2 x 8.6-50 mg) PO BID 07/23/23 50 mg tablet (Senna-S) #60 tabs ezetimibe 10 mg tablet See Rx Instructions .Route 08/07/23 .COMPLEX #100 tabs fenofibrate nanocrystallized 48 mg See Rx Instructions .Route 08/09/23 tablet (Tricor) .COMPLEX #90 tabs diabetic shoes with 3 inserts #1 ea 09/16/23 carvedilol 25 mg tablet 25 mg PO DAILY #90 tabs 12/03/23 ketoconazole 2 % topical cream 1 applic topical DAILY #30 grams 01/23/24 hydralazine 100 mg tablet 100 mg PO TID #270 tabs 02/24/24 clopidogrel 75 mg tablet See Rx Instructions .Route 05/08/24 .COMPLEX #90 tabs albuterol sulfate 90 mcg/actuation 2 inh inhalation Q4H PRN shortness 07/18/24 aerosol inhaler of breath or wheezing #18 grams levofloxacin 500 mg tablet 500 mg PO DAILY 7 days #7 tabs 07/18/24 Allergies Allergy/AdvReac Type Severity Reaction Status Date / Time No Known Allergies Allergy Verified 06/01/24 13:36 Review of Systems 2 Const: Denies: fever(s) or chills Card: Denies: chest pain Resp: Reports: dyspnea, productive cough, wheezing and chest congestion GI: Denies: abdominal pain : Denies: dysuria, urinary frequency or urinary urgency Musc: Denies: neck pain or back pain Skin/Breast: Denies: rash PFSH ED 2 PFSH: Medical History Anemia BPH loc w urin obs/LUTS Chronic kidney disease Diabetes Elevated PSA Dyslipidemia (high LDL; low HDL) Benign essential HTN Atherosclerotic heart disease of [place] coronary artery with other forms of angina pectoris Bilateral carotid artery stenosis CAD (coronary artery disease) Hyperlipidemia Hypertension Surgical History S/P cholecystectomy (10/2022) Status post laparoscopic appendectomy (02/02/23) Hx of cataract extraction H/O heart bypass surgery S/P right rotator cuff repair History of common carotid artery stent placement Hx of tonsillectomy H/O adenoidectomy Family History Father , at age 83 Cancer prostate Mother , at age 93 Dementia Brother Cancer Other Hyperlipidemia Denies family history of Diabetes CAD (coronary artery disease) Clotting disorder Chronic kidney disease (CKD) Suicide Anesthesia complication Bleeding disorder Lung disease Stroke Social History Smoking and tobacco/nicotine status: unknown if used tobacco/nicotine Quit status (tobacco/nicotine): has quit using Year quit tobacco: 1994 Former quit date comment: Smoked for 40 years Alcohol intake: never Substance/Drug Use: never Adopted: No Caregiver/support person: No Lives independently: No Household members: spouse Marital status: Current occupational status: retired Physical Exam 2 Const: GENERAL APPEARANCE: cooperative ORIENTATION/CONSCIOUSNESS: Yes awake, Yes oriented to person, Yes oriented to place and Yes oriented to time HENMT: COMMON NORMALS: normocephalic, atraumatic and hearing grossly normal bilaterally HEAD & SCALP: normocephalic and atraumatic Resp: AUSCULTATION: rhonchi left upper and left lower Cardio: COMMON NORMALS: regular rate, regular rhythm and No murmurs present (Cardio) RATE: regular rate RHYTHM: regular rhythm GI: COMMON NORMALS: Soft to palpation and No hepatosplenomegaly present A USCULTATION: Yes normoactive bowel sounds PALPATION: Yes Soft to palpation, No Tenderness to palpation present (GI), No Guarding due to palpation present (GI) and Yes No hepatosplenomegaly present Extremity: COMMON NORMALS: normal to inspection, capillary refill normal, no clubbing, cyanosis or edema, no calf tenderness and no pedal edema Neuro: SENSORIUM/ORIENTATION: Yes oriented to person, Yes oriented to place and Yes oriented to time Skin: COMMON NORMALS: no rashes or lesions noted GENERAL SKIN EXAM: no rashes or lesions noted Course 2 Vital Signs: Vital signs: Vital Signs Temperature 99.8 F H 07/18/24 13:12 Pulse Rate 88 07/18/24 13:55 Respiratory Rate 24 H 07/18/24 13:55 Blood Pressure 146/50 07/18/24 13:55 Pulse Oximetry 94 07/18/24 13:55 Oxygen Delivery Me thod Room Air 07/18/24 13:55 MDM - URI/Sore Throat Medical Decision Making Patient has productive cough clinically I believe he has pneumonia he is having slightly elevated white count as well. His oxygen saturation consistently in the low 90s with no tachycardia. Will discharge patient home on Levaquin 500 mg daily. He follow-up with primary care. Medical Records I reviewed the patient's medical records. Lab Data I reviewed the patient's lab results. 07/18/24 13:41 07/18/24 13:41 Radiology Impressions Chest X-Ray 07/18/24 13:12 IMPRESSION: No acute findings. Laboratory Results WBC 13.43 10^3/uL (3.29-11.43) H 07/18/24 13:41 RBC 3.22 10^6/uL (3.85-5.65) L 07/18/24 13:41 Hgb 10.70 g/dL (11.27-16.99) L 07/18/24 13:41 Hct 32.1 % (37-53) L 07/18/24 13:41 MCV 99.7 fl (82-101) 07/18/24 13:41 MCH 33.2 pg (27-33) H 07/18/24 13:41 MCHC 33.3 g/dL (30-55) 07/18/24 13:41 RDW 14.1 % (12.1-15.1) 07/18/24 13:41 Plt Count 151 10^3/cmm (157-399) L 07/18/24 13:41 MPV 10.2 fL (7.4-10.4) 07/18/24 13:41 Neut % (Auto) 84.0 % 07/18/24 13:41 Lymph % (Auto) 4.5 % 07/18/24 13:41 [place] % (Auto) 8.9 % 07/18/24 13:41 Eos % (Auto) 0.4 % 07/18/24 13:41 Baso % (Auto) 0.2 % 07/18/24 13:41 Neut # (Auto) 11.29 10^3/uL (1.8-7.7) H 07/18/24 13:41 Lymph # (Auto) 0.6 10^3/uL (0.8-4.8) L 07/18/24 13:41 [place] # (Auto) 1.2 10^3/uL (0.2-0.9) H 07/18/24 13:41 Eos # (Auto) 0.1 10^3/uL (0.0-0.8) 07/18/24 13:41 Baso # (Auto) 0.0 10^3/uL (0.0-0.1) 07/18/24 13:41 Nucleated RBC % (auto) 0 % 07/18/24 13:41 Nucleated RBCs # 0.0 /100WBC 07/18/24 13:41 Sodium 136 mmol/L (136-145) 07/18/24 13:41 Potassium 4.3 mmol/L (3.5-5.1) 07/18/24 13:41 Chloride 102 mmol/L (98-107) 07/18/24 13:41 Carbon Dioxide 20 mmol/L (22-29) L 07/18/24 13:41 Anion Gap 18.3 (5-19) 07/18/24 13:41 BUN 39 mg/dL (8-23) H 07/18/24 13:41 Creatinine 1.9 mg/dL (0.7-1.2) H 07/18/24 13:41 GFR Calculation Not Reportable 07/18/24 13:41 Glucose 153 mg/dL (65-115) H 07/18/24 13:41 Calculated Osmolality 294 mOsm/kg (285-295) 07/18/24 13:41 Lactic Acid 1.4 mmol/L (0.5-2.2) 07/18/24 13:41 Calcium 8.5 mg/dL (8.5-10.5) 07/18/24 13:41 Total Bilirubin 0.3 mg/dL (0.15-1.2) 07/18/24 13:41 AST 19 U/L (0-40) 07/18/24 13:41 ALT 14 U/L (0-41) 07/18/24 13:41 Alkaline Phosphatase 57 U/L (40-130) 07/18/24 13:41 Troponin T Baseline 35 ng/L (0-15) H 07/18/24 13:41 NT-Pro-B Natriuret Pep 804 pg/mL (0-450) H 07/18/24 13:41 Total Protein 5.8 g/dL (6.6-8.7) L 07/18/24 13:41 Albumin 3.9 g/dL (3.5-5.2) 07/18/24 13:41 Globulin 1.9 g/dL (1.3-4.6) 07/18/24 13:41 Coronavirus (PCR) Negative (Negative) 07/18/24 13:22 Influenza A (PCR) Negative (Negative) 07/18/24 13:22 Influenza Type B (PCR) Negative (Negative) 07/18/24 13:22 RSV (PCR) Negative (Negative) 07/18/24 13:22 All radiology interpretation(s) finalized by discharge Discharge Plan Discharge Patient Disposition: Home Clinical Impression: Pneumonia Condition: Stable Prescriptions: New levofloxacin 500 mg tablet 500 mg PO DAILY 7 Days Qty: 7 0RF albuterol sulfate 90 mcg/actuation HFA aerosol inhaler 2 inh INHALATION Q4H PRN (Reason: shortness of breath or wheezing) Qty: 18 0RF No Action tamsulosin 0.4 mg capsule 0.4 mg PO DAILY Adult Probiotic 3 billion cell capsule 3,000 mmu cells PO DAILY Rx Instructions: administer with a meal folic acid 400 mcg tablet 0.4 mg PO DAILY glucosamine HCl 1,500 mg tablet 1,500 mg PO DAILY Rx Instructions: administer with a meal citalopram [Celexa] 20 mg tablet 20 mg PO DAILY cholecalciferol (vitamin D3) 50 mcg (2,000 unit) capsule 50 mcg PO DAILY multivitamin Tablet 1 tab PO DAILY fluticasone propionate 50 mcg/actuation spray,suspension 2 spray INTRANASAL DAILY Rx Instructions: administer into each nostril aspirin [Adult Aspirin Regimen] 81 mg tablet,delayed release (DR/EC) 81 mg PO DAILY nitroglycerin 0.4 mg tablet, sublingual 0.4 mg sublingual Q5M PRN (Reason: chest pain) 30 Days Qty: 30 3RF Rx Instructions: until response; do not exceed 3 doses per episode oxymetazoline [Afrin (oxymetazoline)] 0.05 % spray,non-aerosol See Rx Instructions intranasal .COMPLEX PRN (Reason: Nasal Congestion) Rx Instructions: 2 to 3 sprays intranasally every 10 to 12 hous PRN; PreserVision AREDS-2 250-90-40-1 mg capsule 1 tab [place] B[place] [place] with 3 inserts See Rx Instructions .Route .MEDSUPPLY Qty: 1 0RF Rx Instructions: [facility] [place] shoes with 3 inserts size 9 not 10 See Rx Instructions .Route .MEDSUPPLY Qty: 1 0RF Rx Instructions: [facility] ketoconazole 2 % cream 1 applic topical DAILY Qty: 30 0RF bumetanide 0.5 mg tablet 0.5 mg PO DAILY pantoprazole 40 mg tablet,delayed release (DR/EC) 40 mg PO DAILY Qty: 90 3RF [place] [place] with 3 sets of insoles See Rx Instructions .Route .MEDSUPPLY Qty: 1 0RF Rx Instructions: [place] [place] custom inserts See Rx Instructions .Route .MEDSUPPLY Qty: 1 0RF Rx Instructions: 5514 amlodipine 5 mg tablet 5 mg PO DAILY Qty: 100 3RF Rx Instructions: *Dose reduced simvastatin 40 mg tablet 40 mg PO DAILY Qty: 90 3RF lisinopril 10 mg tablet See Rx Instructions .ROUTE .COMPLEX Qty: 100 3RF Dose Instruction: TAKE 1 TABLET DAILY Rx Instructions: TAKE 1 TABLET DAILY ezetimibe 10 mg tablet See Rx Instructions .ROUTE .COMPLEX Qty: 100 3RF Dose Instruction: TAKE 1 TABLET DAILY Rx Instructions: TAKE 1 TABLET DAILY fenofibrate nanocrystallized [Tricor] 48 mg tablet See Rx Instructions .ROUTE .COMPLEX Qty: 90 3RF Dose Instruction: TAKE 1 TABLET DAILY Rx Instructions: TAKE 1 TABLET DAILY carvedilol 25 mg tablet 25 mg PO DAILY Qty: 90 3RF hydralazine 100 mg tablet 100 mg PO TID Qty: 270 3RF clopidogrel 75 mg tablet See Rx Instructions .ROUTE .COMPLEX Qty: 90 3RF Dose Instruction: TAKE 1 TABLET DAILY Rx Instructions: TAKE 1 TABLET DAILY Colace 100 mg capsule 100 mg PO BID Qty: 14 0RF Senna-S 8.6-50 mg tablet 2 tab-cap PO BID Qty: 60 0RF Discharge Orders: Discharge ED (Routine); Ordered 07/18/24 Ordered By: Himanshu Lawrence Referrals: Naima Logan PA [Primary Care Provider] - Discharge Diet: Usual diet Discharge Activity: Increase activity as tolerated Patient Instructions: Opioid Safety, Pain Management Activity Restrictions/Additional Instructions: Thank you for choosing [facility] for your healthcare needs today. It is very important that you follow up as instructed or that you return to the Emergency Department should you have concerns or if your condition changes or worsens in any way. You were seen in the emergency room with complaints of cough and shortness of breath and weakness. Your white count is slightly elevated at 13. Your chest x-ray did not show clear infiltrates however on exam you do have coarse sounding breath sounds particularly on the left lung field. Recommend you start Levaquin 500 milligrams once daily for 7 days you are also given albuterol to use as needed. Flu COVID and RSV were tested as well and they were negative. Coding Level of Care Code ED Special Crimes Investigator for Nimesh Matos
[2024-07-18 13:55] VITALS: BP 146/50; PULSE 88; RESP 24; O2SAT 94
[2024-07-18 13:59] LABS: Basophils % 0.2 %; Eosinophils # 0.1 10^3/uL (0.0-0.8); Eosinophils % 0.4 %; Hematocrit 32.1 % (37-53); Lymphocytes # 0.6 10^3/uL (0.8-4.8); Lymphocytes % 4.5 %; Mean Corpuscular HGB Conc 33.3 g/dL (30-55); Mean Corpuscular Hemoglobin 33.2 pg (27-33); Mean Corpuscular Volume 99.7 fl (82-101); Mean Platelet Volume 10.2 fL (7.4-10.4); Monocytes # 1.2 10^3/uL (0.2-0.9); Monocytes % 8.9 %; Neutrophils # 11.29 10^3/uL (1.8-7.7); Nucleated Red Blood Cells % 0 %; Platelet Count 151 10^3/cmm (157-399); Red Blood Count 3.22 10^6/uL (3.85-5.65); Red Cell Distribution Width 14.1 % (12.1-15.1); White Blood Count 13.43 10^3/uL (3.29-11.43)
[2024-07-18 14:05] LABS: Covid PCR NEGATIVE (Negative); Influenza A NEGATIVE (Negative); Influenza B NEGATIVE (Negative); Respiratory Syncytial Virus Ce NEGATIVE (Negative)
[2024-07-18 14:23] LABS: Lactic Sepsis W/Reflex 1.4 mmol/L (0.5-2.2)
[2024-07-18 14:25] LABS: Troponin(5th) Baseline 35 ng/L (0-15)
[2024-07-18 14:34] LABS: Alanine Aminotransferase 14 U/L (0-41); Albumin Level 3.9 g/dL (3.5-5.2); Alkaline Phosphatase 57 U/L (40-130); Anion Gap 18.3 (5-19); Aspartate Amino Transferase 19 U/L (0-40); Blood Urea Nitrogen 39 mg/dL (8-23); Calcium 8.5 mg/dL (8.5-10.5); Carbon Dioxide 20 mmol/L (22-29); Chloride 102 mmol/L (98-107); Creatinine Clr Calc Pharmacy 28.8615; Globulin 1.9 g/dL (1.3-4.6); Glucose 153 mg/dL (65-115); NT Pro B Type Natriuretic Pept 804 pg/mL (0-450); Osmolality Calculated 294 mOsm/kg (285-295); Potassium 4.3 mmol/L (3.5-5.1); Sodium 136 mmol/L (136-145); Total Bilirubin 0.3 mg/dL (0.15-1.2); Total Protein 5.8 g/dL (6.6-8.7)
--- NOTE | 2024-07-18 15:00 | ECG_ITS ---
[facility]: 2024-[facility]18 Pat Name: Ck Marcus Department: Room: Gender: Male Is Consultant: : 1940 Requested By: Ellen Molina Order Number: [id number] Humberto MD: Ronit Mortensen M.D. Measurements Intervals [place] Rate: 89 P: 39 MS: 165 QRS: 16 QRSD: 100 T: 55 QT: 350 QTc: 426 Interpretive Statements SINUS RHYTHM INCOMPLETE RIGHT BUNDLE BRANCH BLOCK [90+ ms QRS DURATION, TERMINAL R IN V1/V2, 40+ ms S IN I/aVL/V4/V5/V6] NONSPECIFIC T-WAVE ABNORMALITY Compared to ECG 07/18/2024 13:19:45 T-wave abnormality now present Myocardial infarct finding no longer present Electronically Signed On 07-18-2024 21:33:53 [employer] by Ronit Mortensen M.D. [email or web address]
[2024-07-18 15:31] VITALS: BP 153/58; PULSE 93; RESP 19; O2SAT 91
== END 2024-07-18 15:34 | disposition home or self-care (01) ==
PROVIDERS: Emergency Medicine; Emergency Provider Family Medicine; PCP Physician Assistant
DX: J18.9 Pneumonia, unspecified organism (principal); Z11.52 Encounter for screening for COVID-19; Z79.82 Long term (current) use of aspirin; Z79.02 Long term (current) use of antithrombotics/antiplatelets; Z87.891 Personal history of nicotine dependence; I25.118 Atherosclerotic heart disease of native coronary artery with other forms of angina pectoris; E78.5 Hyperlipidemia, unspecified; I12.9 Hypertensive chronic kidney disease with stage 1 through stage 4 chronic kidney disease, or unspecified chronic kidney disease; N18.9 Chronic kidney disease, unspecified
CPT/HCPCS: 36415; 71045; 80053; 83605; 83880; 84484; 85025; 87040; 87637; 93005; 99285

== ENCOUNTER → 2024-08-04 16:20 | Outpatient (BNVA) | payer MEDICARE, OTHER, SELFPAY | PROVIDERS: PCP Physician Assistant; Visit Provider Podiatrist Foot & Ankle Surgery | DX: L60.3 Nail dystrophy (principal); G62.9 Polyneuropathy, unspecified; L84 Corns and callosities; E11.42 Type 2 diabetes mellitus with diabetic polyneuropathy; I73.9 Peripheral vascular disease, unspecified; B35.3 Tinea pedis | CPT/HCPCS: 11721; 99213 ==

== ENCOUNTER 2024-08-06 14:26 | Oncology outpatient (recurring) (ONCR) | payer MEDICARE, OTHER, SELFPAY ==
[2024-08-06 15:22] LABS: Basophils % 0.2 %; Eosinophils # 0.1 10^3/uL (0.0-0.8); Eosinophils % 2.1 %; Hematocrit 30.1 % (37-53); Lymphocytes # 1.2 10^3/uL (0.8-4.8); Lymphocytes % 28.8 %; Mean Corpuscular HGB Conc 32.9 g/dL (30-55); Mean Corpuscular Hemoglobin 32.8 pg (27-33); Mean Corpuscular Volume 99.7 fl (82-101); Mean Platelet Volume 9.8 fL (7.4-10.4); Monocytes # 0.4 10^3/uL (0.2-0.9); Neutrophils # 2.53 10^3/uL (1.8-7.7); Neutrophils % 59.7 %; Nucleated Red Blood Cells % 0 %; Platelet Count 189 10^3/cmm (157-399); Red Blood Count 3.02 10^6/uL (3.85-5.65); Red Cell Distribution Width 14.6 % (12.1-15.1); White Blood Count 4.24 10^3/uL (3.29-11.43)
[2024-08-06 15:41] LABS: Alanine Aminotransferase 11 U/L (0-41); Albumin Level 3.9 g/dL (3.5-5.2); Alkaline Phosphatase 50 U/L (40-130); Anion Gap 16.1 (5-19); Aspartate Amino Transferase 15 U/L (0-40); Blood Urea Nitrogen 49 mg/dL (8-23); Calcium 8.5 mg/dL (8.5-10.5); Carbon Dioxide 22 mmol/L (22-29); Chloride 104 mmol/L (98-107); Creatinine Clr Calc Pharmacy 28.9649; Ferritin 31 ng/mL (30-400); Globulin 2.2 g/dL (1.3-4.6); Glucose 127 mg/dL (65-115); Iron 92 ug/dL (59-158); Osmolality Calculated 299 mOsm/kg (285-295); Percent Saturation 29.4 % (20-50); Potassium 5.1 mmol/L (3.5-5.1); Sodium 137 mmol/L (136-145); Total Bilirubin 0.2 mg/dL (0.15-1.2); Total Iron Binding Capacity 312 mcg/dl; Total Protein 6.1 g/dL (6.6-8.7); Unsaturated Iron Binding 220 ug/dL (112-347)
== END 2024-08-14 23:59 | disposition home or self-care (01) ==
PROVIDERS: Nurse Practitioner; PCP Physician Assistant; Visit Provider Internal Medicine Medical Oncology
DX: D50.8 Other iron deficiency anemias (principal); N18.9 Chronic kidney disease, unspecified; Z87.891 Personal history of nicotine dependence; Z90.49 Acquired absence of other specified parts of digestive tract
CPT/HCPCS: 36415; 80053; 82728; 83540; 83550; 85025; 99213

== ENCOUNTER → 2024-10-06 14:08 | Outpatient (BNVA) | payer MEDICARE, OTHER, SELFPAY | PROVIDERS: PCP Physician Assistant; Visit Provider Podiatrist Foot & Ankle Surgery | DX: E11.42 Type 2 diabetes mellitus with diabetic polyneuropathy (principal); L60.3 Nail dystrophy; L84 Corns and callosities; G62.9 Polyneuropathy, unspecified; I73.9 Peripheral vascular disease, unspecified; B35.3 Tinea pedis | CPT/HCPCS: 11721 ==

== ENCOUNTER 2024-10-08 13:34 | Oncology outpatient (recurring) (ONCR) | payer MEDICARE, OTHER, SELFPAY ==
[2024-10-08 14:04] LABS: Basophils % 0.2 %; Eosinophils # 0.1 10^3/uL (0.0-0.8); Eosinophils % 1.1 %; Hematocrit 27.9 % (37-53); Lymphocytes # 1.2 10^3/uL (0.8-4.8); Lymphocytes % 26.4 %; Mean Corpuscular HGB Conc 32.3 g/dL (30-55); Mean Corpuscular Hemoglobin 32.4 pg (27-33); Mean Corpuscular Volume 100.4 fl (82-101); Mean Platelet Volume 9.7 fL (7.4-10.4); Monocytes # 0.5 10^3/uL (0.2-0.9); Monocytes % 10.7 %; Neutrophils # 2.81 10^3/uL (1.8-7.7); Neutrophils % 61.2 %; Nucleated Red Blood Cells % 0 %; Platelet Count 186 10^3/cmm (157-399); Red Blood Count 2.78 10^6/uL (3.85-5.65); Red Cell Distribution Width 15.1 % (12.1-15.1); White Blood Count 4.59 10^3/uL (3.29-11.43)
[2024-10-08 14:10] LABS: Erythrocyte Sedimentation Rate 8 mm/hr (0-10); Reticulocyte % 2.2 % (0.5-2.0)
[2024-10-08 14:25] LABS: Alanine Aminotransferase 10 U/L (0-41); Alkaline Phosphatase 36 U/L (40-130); Anion Gap 16.2 (5-19); Aspartate Amino Transferase 14 U/L (0-40); Blood Urea Nitrogen 49 mg/dL (8-23); Calcium 8.5 mg/dL (8.5-10.5); Carbon Dioxide 22 mmol/L (22-29); Chloride 103 mmol/L (98-107); Ferritin 22 ng/mL (30-400); Globulin 2.1 g/dL (1.3-4.6); Glucose 120 mg/dL (65-115); Iron 82 ug/dL (59-158); Lactate Dehydrogenase 159 U/L (135-225); Osmolality Calculated 296 mOsm/kg (285-295); Percent Saturation 23.1 % (20-50); Potassium 5.2 mmol/L (3.5-5.1); Sodium 136 mmol/L (136-145); Total Bilirubin 0.2 mg/dL (0.15-1.2); Total Iron Binding Capacity 354 mcg/dl; Total Protein 6.1 g/dL (6.6-8.7); Unsaturated Iron Binding 272 ug/dL (112-347)
[2024-10-08 14:40] LABS: Vitamin B12 893 pg/mL (232-1245)
[2024-10-08 14:54] LABS: Immunoglobulin IGA 140 mg/dL (70-400); Immunoglobulin IGG 596 mg/dL (700-1600); Immunoglobulin IGM 60 mg/dL (40-230)
[2024-10-08 14:57] LABS: Folate Level > 20.0 ng/mL (4.5-32.2)
[2024-10-09 08:30] LABS: PROTEIN, TOTAL 5.9 g/dL (6.1-8.1)
[2024-10-12 10:00] LABS: ALBUMIN 3.7 g/dL (3.8-4.8); ALPHA 1 GLOBULIN 0.2 g/dL (0.2-0.3); ALPHA 2 GLOBULIN 0.7 g/dL (0.5-0.9); BETA 1 GLOBULIN 0.5 g/dL (0.4-0.6); BETA 2 GLOBULIN 0.3 g/dL (0.2-0.5); GAMMA GLOBULIN 0.5 g/dL (0.8-1.7)
[2024-10-12 12:18] LABS: Erythropoietin 30.5 mIU/mL (2.6-18.5)
[2024-10-12 14:39] LABS: KAPPA/LAMBDA LIGHT CHAINS FREE 1.69 (0.26-1.65)
[2024-10-13 20:35] LABS: Immunofixation Serum Normal pattern.
== END 2024-10-12 23:59 | disposition home or self-care (01) ==
LOC: ONCMED 13:35
PROVIDERS: PCP Physician Assistant; Visit Provider Internal Medicine
DX: D50.8 Other iron deficiency anemias (principal); N18.9 Chronic kidney disease, unspecified; Z79.899 Other long term (current) drug therapy
CPT/HCPCS: 36415; 80053; 82607; 82668; 82728; 82746; 82784; 83010; 83540; 83550; 83615; 83883; 84155; 84165; 85025; 85045; 85651; 86334; 99213

== ENCOUNTER 2024-11-26 20:54 | Emergency (ER) | payer OTHER, MEDICARE, SELFPAY ==
[2024-11-26 20:55] VITALS: BP 183/62; PULSE 90; RESP 16; TEMP 36.7; O2SAT 96; BMI 28.2
[2024-11-26 22:00] VITALS: BP 188/62; PULSE 90; RESP 16; O2SAT 91
--- NOTE | 2024-11-26 22:01 | W.ED.NAVMDI ---
HPI - Nausea/Vomiting/Diarrhea General: Chief complaint: Nausea/Vomiting/Diarrhea Stated complaint: iron infusion today. n/v chills Time Seen by Provider: 11/26/24 21:58 History of Present Illness: 83-year-old man with history of anemia who received an iron transfusion today and planned transfusion tomorrow, BPH, chronic kidney disease, diabetes, hyperlipidemia, hypertension, carotid artery stenosis, coronary artery disease who presents to the emergency room after he had an episode of vomiting earlier and now has the chills and some generalized weakness. Concerned it might be from the iron infusion as this was different than the one he usually gets. He appears a bit diaphoretic. He is hypertensive. No confusion. No altered mental status. No focal motor deficits. No chest pain. No abdominal pain. Related Data Home Medications ?Medication ?Instructions ?Recorded ?Confirmed cholecalciferol (vitamin D3) 50 50 mcg PO DAILY 12/10/19 11/26/24 mcg (2,000 unit) capsule citalopram 20 mg tablet (Celexa) 20 mg PO DAILY 12/10/19 11/26/24 fluticasone propionate 50 2 spray intranasal DAILY 12/10/19 11/26/24 mcg/actuation nasal spray,suspension folic acid 400 mcg tablet 0.4 mg PO DAILY 12/10/19 11/26/24 glucosamine HCl 1,500 mg tablet 1,500 mg PO DAILY 12/10/19 11/26/24 multivitamin 1 tab PO DAILY 12/10/19 11/26/24 tamsulosin 0.4 mg capsule 0.4 mg PO DAILY 12/31/19 11/26/24 lactobacillus combination no.8 3 3,000 mmu cells PO DAILY 06/01/20 11/26/24 billion cell capsule (Adult Probiotic) aspirin 81 mg tablet,delayed 81 mg PO DAILY 05/25/21 11/26/24 release (Adult Aspirin Regimen) oxymetazoline 0.05 % nasal spray See Rx Instructions intranasal 09/12/22 11/26/24 (Afrin (oxymetazoline)) .COMPLEX PRN Nasal Congestion vit C 250 mg-vit E 90 mg-zinc 40 1 tab PO BID 09/12/22 11/26/24 mg-copper 1 [id number] capsule (PreserVision AREDS-2) bumetanide 0.5 mg tablet 0.5 mg PO DAILY 12/24/23 11/26/24 diclofenac sodium 1 % topical gel topical 11/26/24 11/26/24 memantine 10 mg tablet mg PO 11/26/24 11/26/24 polyethylene glycol 3350 17 g PO 11/26/24 11/26/24 gram/dose oral powder (ClearLax) Previous Rx's ?Medication ?Instructions ?Recorded pantoprazole 40 mg tablet,delayed 40 mg PO DAILY #90 tabs 01/27/20 release nitroglycerin 0.4 mg sublingual 0.4 mg sublingual Q5M PRN chest 03/12/22 tablet pain 30 days #30 tabs diabetic shoes with 3 sets of #1 ea 06/26/22 insoles custom inserts #1 ea 09/25/22 docusate sodium 100 mg capsule 100 mg PO BID #14 caps 02/06/23 (Colace) amlodipine 5 mg tablet 5 mg PO DAILY HTN #100 tabs 04/22/23 simvastatin 40 mg tablet 40 mg PO DAILY #90 tabs 04/26/23 diabetic shoes with 3 inserts #1 ea 06/24/23 sennosides 8.6 mg-docusate sodium 2 tab-cap (2 x 8.6-50 mg) PO BID 07/23/23 50 mg tablet (Senna-S) #60 tabs ketoconazole 2 % topical cream 1 applic topical DAILY #30 grams 01/23/24 hydralazine 100 mg tablet 100 mg PO TID #270 tabs 02/24/24 clopidogrel 75 mg tablet See Rx Instructions .Route 05/08/24 .COMPLEX #90 tabs albuterol sulfate 90 mcg/actuation 2 inh inhalation Q4H PRN shortness 07/18/24 aerosol inhaler of breath or wheezing #18 grams diabetic shoes with 3 inserts #1 ea 08/04/24 ezetimibe 10 mg tablet See Rx Instructions .Route 08/04/24 .COMPLEX #100 tabs fenofibrate nanocrystallized 48 mg See Rx Instructions .Route 08/04/24 tablet (Tricor) .COMPLEX #90 tabs lisinopril 10 mg tablet See Rx Instructions .Route 09/04/24 .COMPLEX #100 tabs carvedilol 25 mg tablet 25 mg PO DAILY #90 tabs 11/04/24 cephalexin 500 mg tablet 500 mg PO TID 7 days #21 tabs 11/27/24 ondansetron 4 mg disintegrating 4 mg PO Q8H PRN nausea and 11/27/24 tablet vomiting #10 tabs Allergies Allergy/AdvReac Type Severity Reaction Status Date / Time No Known Allergies Allergy Verified 11/26/24 11:44 Review of Systems Narrative: Constitutional symptoms: Negative except as documented in HPI. Skin symptoms: Negative except as documented in HPI. Eye symptoms: Negative except as documented in HPI. ENMT symptoms: Negative except as documented in HPI. Respiratory symptoms: Negative except as documented in HPI. Cardiovascular symptoms: Negative except as documented in HPI. Gastrointestinal symptoms: Negative except as documented in HPI. Genitourinary symptoms: Negative except as documented in HPI. Musculoskeletal symptoms: Negative except as documented in HPI. Neurologic symptoms: Negative except as documented in HPI. Psychiatric symptoms: Negative except as documented in HPI. Endocrine symptoms: Negative except as documented in HPI. PFSH ED PFSH: Medical History Anemia BPH loc w urin obs/LUTS Chronic kidney disease Diabetes Elevated PSA Dyslipidemia (high LDL; low HDL) Benign essential HTN Atherosclerotic heart disease of [place] coronary artery with other forms of angina pectoris Bilateral carotid artery stenosis CAD (coronary artery disease) Hyperlipidemia Hypertension Surgical History S/P cholecystectomy (10/2022) Status post laparoscopic appendectomy (02/02/23) Hx of cataract extraction H/O heart bypass surgery S/P right rotator cuff repair History of common carotid artery stent placement Hx of tonsillectomy H/O adenoidectomy Family History Father , at age 83 Cancer prostate Mother , at age 93 Dementia Brother Cancer Other Hyperlipidemia Denies family history of Diabetes CAD (coronary artery disease) Clotting disorder Chronic kidney disease (CKD) Suicide Anesthesia complication Bleeding disorder Lung disease Stroke Social History Smoking and tobacco/nicotine status: unknown if used tobacco/nicotine Quit status (tobacco/nicotine): has quit using Year quit tobacco: 1994 Former quit date comment: Smoked for 40 years Alcohol intake: never Substance/Drug Use: never Adopted: No Caregiver/support person: No Lives independently: No Household members: spouse Marital status: Current occupational status: retired Physical Exam Narrative: EXAM NARRATIVE: General: Alert, no acute distress. Skin: Warm, slightly diaphoretic, appears pale. Head: Normocephalic, atraumatic. Neck: Supple, trachea midline. Eye: Extraocular movements are intact. Ears, nose, mouth and throat: mucosa moist. Cardiovascular: Regular, Normal peripheral perfusion. Respiratory: Lungs are clear to auscultation, respirations are non-labored, breath sounds are equal, Symmetrical chest wall expansion. Gastrointestinal: Soft, Nontender, Non distended Musculoskeletal: Normal ROM, no deformity. Neurological: Alert and oriented, No focal neurological deficit observed. Psychiatric: Cooperative, appropriate mood & affect. Course Vital Signs: Vital signs: Vital Signs Temperature 98.1 F 11/26/24 20:55 Pulse Rate 83 11/27/24 01:35 Respiratory Rate 16 11/27/24 01:35 Blood Pressure 129/57 11/27/24 01:35 Pulse Oximetry 96 11/27/24 01:35 Oxygen Delivery Me thod Room Air 11/27/24 01:00 MDM - Nausea/Vomiting/Diarrhea Medical Decision Making Medical decision making: Differential diagnosis for this patient with nausea and vomiting including but not limited to and based on the above HPI, review of systems and physical exam: Urinary tract infection. Appendicitis. Cholecystitis. Colitis. small bowel obstruction. crohn's flare. pancreatitis. gastritis. peptic ulcer. cyclic vomiting. Viral illness. Influenza. COVID. Orders placed to evaluate differential diagnosis based on the above differential, HPI and physical exam Lab Review: Laboratory results were reviewed and interpreted by myself the emergency room physician. No leukocytosis. Stable anemia with a hemoglobin of 8.5. BUN and creatinine are 61 and 2 which are at his baseline. He has some chronic kidney disease. Urine is positive with 11-20 whites but no bacteria. Treating for UTI. I reviewed the patient's medical record. Reexamination: Patient remained stable. No increased work of breathing. No altered mental status. No focal motor deficits. No further nausea or vomiting. Vitals remained stable. Assessment and plan: Nausea and vomiting Urinary tract infection ? IM Rocephin in the emergency room - Discharged home - Discussed plan with patient. Answered any questions. - Evaluation and treatment of this problem were appropriate in the emergency setting. Lab Data 11/26/24 21:57 11/26/24 21:57 Laboratory Results WBC 9.84 10^3/uL (3.29-11.43) 11/26/24 21:57 RBC 2.69 10^6/uL (3.85-5.65) L 11/26/24 21:57 Hgb 8.50 g/dL (11.27-16.99) L 11/26/24 21:57 Hct 27.1 % (37-53) L 11/26/24 21:57 MCV 100.7 fl (82-101) 11/26/24 21:57 MCH 31.6 pg (27-33) 11/26/24 21: MCHC 31.4 g/dL (30-55) 11/26/24 21:57 RDW 13.9 % (12.1-15.1) 11/26/24 21:57 Plt Count 191 10^3/cmm (157-399) 11/26/24 21:57 MPV 9.5 fL (7.4-10.4) 11/26/24 21:57 Neut % (Auto) 92.6 % 11/26/24 21:57 Lymph % (Auto) 2.5 % 11/26/24 21:57 [place] % (Auto) 3.2 % 11/26/24 21:57 Eos % (Auto) 0.3 % 11/26/24 21:57 Baso % (Auto) 0.1 % 11/26/24: Neut # (Auto) 9.11 10^3/uL (1.8-7.7) H 11/26/24 21:57 Lymph # (Auto) 0.3 10^3/uL (0.8-4.8) L 11/26/24 21:57 [place] # (Auto) 0.3 10^3/uL (0.2-0.9) 11/26/24 21:57 Eos # (Auto) 0.0 10^3/uL (0.0-0.8) 11/26/24 21:57 Baso # (Auto) 0.0 10^3/uL (0.0-0.1) 11/26/24 21:57 Nucleated RBC % (auto) 0 % 05/15/25 21:57 Nucleated RBCs # 0.0 /100WBC 11/26/24 21:57 Sodium 139 mmol/L (136-145) 11/26/24 21:57 Potassium 5.0 mmol/L (3.5-5.1) 11/26/24 21:57 Chloride 108 mmol/L (98-107) H 11/26/24 21:57 Carbon Dioxide 20 mmol/L (22-29) L 11/26/24 21:57 Anion Gap 16.0 (5-19) 11/26/24 21:57 BUN 61 mg/dL (8-23) H 11/26/24 21:57 Creatinine 2.0 mg/dL (0.7-1.2) H 11/26/24 21:57 GFR Calculation Not Reportable 11/26/24: Glucose 138 mg/dL (65-115) H 11/26/24 21:57 Calculated Osmolality 307 mOsm/kg (285-295) H 11/26/24 21:57 Lactic Acid 1.0 mmol/L (0.5-2.2) 11/26/24 21:57 Calcium 8.6 mg/dL (8.5-10.5) 11/26/24 21:57 C-Reactive Protein 3.0 mg/L (0.0-4.9) 11/26/24 21: Lipase 50 U/L (13-60) 11/26/24 21:57 Urine Color Yellow (Yellow) 11/27/24 00:03 Urine Appearance Clear (CLEAR) 11/27/24 00:03 Urine pH 5.5 (5-7) 11/27/24 00:03 Ur Specific [place] 1.016 (1.005-1.030) 11/27/24 00:03 Urine Protein Trace (Negative) A 11/27/24 00:03 Urine Glucose (UA) Negative (Normal) 11/27/24 00:03 Urine Ketones Negative (Negative) 11/27/24 00:03 Urine Blood Negative (Negative) 11/27/24 00:03 Urine Nitrate Negative (Negative) 11/27/24 00:03 Urine Bilirubin Negative (Negative) 11/27/24 00:03 Urine Urobilinogen 0.2 mg/dL (Negative) 11/27/24 00:03 Ur Leukocyte Esterase 1+ (Negative) A 11/27/24 00:03 Urine RBC 0-2 /hpf (0-2) 11/27/24 00:03 Urine WBC 11-20 /hpf (0-5) H 11/27/24 00:03 Ur Squamous Epith Cells 0-5 /hpf (0-5) 11/27/24 00:03 Amorphous Sediment Not Reportable 11/27/24 00:03 Urine Bacteria None seen /hpf (NONE) 11/27/24 00:03 Hyaline Casts 0-4 /lpf H 11/27/24 00:03 No radiology studies performed this visit Discharge Plan Discharge Patient Disposition: Home Clinical Impression: Urinary tract infection, Vomiting Condition: Stable Prescriptions: New cephalexin 500 mg tablet 500 mg PO TID 7 Days Qty: 21 0RF ondansetron 4 mg tablet,disintegrating 4 mg PO Q8H PRN (Reason: nausea and vomiting) Qty: 10 0RF No Action tamsulosin 0.4 mg capsule 0.4 mg PO DAILY Adult Probiotic 3 billion cell capsule 3,000 mmu cells PO DAILY Rx Instructions: administer with a meal folic acid 400 mcg tablet 0.4 mg PO DAILY glucosamine HCl 1,500 mg tablet 1,500 mg PO DAILY Rx Instructions: administer with a meal citalopram [Celexa] 20 mg tablet 20 mg PO DAILY cholecalciferol (vitamin D3) 50 mcg (2,000 unit) capsule 50 mcg PO DAILY multivitamin Tablet 1 tab PO DAILY fluticasone propionate 50 mcg/actuation spray,suspension 2 spray INTRANASAL DAILY Rx Instructions: administer into each nostril aspirin [Adult Aspirin Regimen] 81 mg tablet,delayed release (DR/EC) 81 mg PO DAILY nitroglycerin 0.4 mg tablet, sublingual 0.4 mg sublingual Q5M PRN (Reason: chest pain) 30 Days Qty: 30 3RF Rx Instructions: until response; do not exceed 3 doses per episode oxymetazoline [Afrin (oxymetazoline)] 0.05 % spray,non-aerosol See Rx Instructions intranasal .COMPLEX PRN (Reason: Nasal Congestion) Rx Instructions: 2 to 3 sprays intranasally every 10 to 12 hous PRN; PreserVision AREDS-2 250-90-40-1 mg capsule 1 tab PO BID (DME) diabetic shoes with 3 inserts See Rx Instructions .Route .MEDSUPPLY Qty: 1 0RF Rx Instructions: As directed to the shoe vasiliy ketoconazole 2 % cream 1 applic topical DAILY Qty: 30 0RF (DME) diabetic shoes with 3 inserts size 9 not 10 See Rx Instructions .Route .MEDSUPPLY Qty: 1 0RF Rx Instructions: As directed to the shodiana amanda. Patient specifies size 9 is appropriate. bumetanide 0.5 mg tablet 0.5 mg PO DAILY polyethylene glycol 3350 [ClearLax] 17 gram/dose powder PO memantine 10 mg tablet PO diclofenac sodium 1 % gel topical pantoprazole 40 mg tablet,delayed release (DR/EC) 40 mg PO DAILY Qty: 90 3RF (DME) diabetic shoes with 3 sets of insoles See Rx Instructions .Route .MEDSUPPLY Qty: 1 0RF Rx Instructions: as directed (DME) custom inserts See Rx Instructions .Route .MEDSUPPLY Qty: 1 0RF Rx Instructions: 5514 amlodipine 5 mg tablet 5 mg PO DAILY Qty: 100 3RF Rx Instructions: *Dose reduced simvastatin 40 mg tablet 40 mg PO DAILY Qty: 90 3RF hydralazine 100 mg tablet 100 mg PO TID Qty: 270 3RF clopidogrel 75 mg tablet See Rx Instructions .ROUTE .COMPLEX Qty: 90 3RF Dose Instruction: TAKE 1 TABLET DAILY Rx Instructions: TAKE 1 TABLET DAILY fenofibrate nanocrystallized [Tricor] 48 mg tablet See Rx Instructions .ROUTE .COMPLEX Qty: 90 3RF Dose Instruction: TAKE 1 TABLET DAILY Rx Instructions: TAKE 1 TABLET DAILY ezetimibe 10 mg tablet See Rx Instructions .ROUTE .COMPLEX Qty: 100 3RF Dose Instruction: TAKE 1 TABLET DAILY Rx Instructions: TAKE 1 TABLET DAILY lisinopril 10 mg tablet See Rx Instructions .ROUTE .COMPLEX Qty: 100 3RF Dose Instruction: TAKE 1 TABLET DAILY Rx Instructions: TAKE 1 TABLET DAILY carvedilol 25 mg tablet 25 mg PO DAILY Qty: 90 0RF Colace 100 mg capsule 100 mg PO BID Qty: 14 0RF Senna-S 8.6-50 mg tablet 2 tab-cap PO BID Qty: 60 0RF albuterol sulfate 90 mcg/actuation HFA aerosol inhaler 2 inh INHALATION Q4H PRN (Reason: shortness of breath or wheezing) Qty: 18 0RF Discharge Orders: Discharge ED (Routine); Ordered 11/27/24 Ordered By: Ellen Maher Referrals: Naima Logan PA [Primary Care Provider, [facility]] Discharge Diet: Advance as tolerated Discharge Activity: Increase activity as tolerated Patient Instructions: Urinary Tract Infection in Men (DC), Opioid Safety, Pain Management Activity Restrictions/Additional Instructions: Thank you for choosing [facility] for your healthcare needs today. You have been screened and evaluated and felt safe for discharge. Health conditions do change or evolve sometimes and as such it is important that you follow up with your Primary Doctor to be re checked, 3-5 days is a general good time frame for follow up. You are always welcome to return to the ED for re assessment if your symptoms are worsening or you have new concerns Print Language: Georgian Coding Level of Care Code ED Workers Compensation Specialist for Nimesh Matos
[2024-11-26 22:21] LABS: Basophils % 0.1 %; Eosinophils % 0.3 %; Hematocrit 27.1 % (37-53); Lymphocytes # 0.3 10^3/uL (0.8-4.8); Lymphocytes % 2.5 %; Mean Corpuscular HGB Conc 31.4 g/dL (30-55); Mean Corpuscular Hemoglobin 31.6 pg (27-33); Mean Corpuscular Volume 100.7 fl (82-101); Mean Platelet Volume 9.5 fL (7.4-10.4); Monocytes # 0.3 10^3/uL (0.2-0.9); Monocytes % 3.2 %; Neutrophils # 9.11 10^3/uL (1.8-7.7); Neutrophils % 92.6 %; Nucleated Red Blood Cells % 0 %; Platelet Count 191 10^3/cmm (157-399); Red Blood Count 2.69 10^6/uL (3.85-5.65); Red Cell Distribution Width 13.9 % (12.1-15.1); White Blood Count 9.84 10^3/uL (3.29-11.43)
[2024-11-26 22:29] LABS: Lipase 50 U/L (13-60)
[2024-11-26 22:30] LABS: Blood Urea Nitrogen 61 mg/dL (8-23); Calcium 8.6 mg/dL (8.5-10.5); Carbon Dioxide 20 mmol/L (22-29); Chloride 108 mmol/L (98-107); Creatinine Clr Calc Pharmacy 27.2345; Glucose 138 mg/dL (65-115); Osmolality Calculated 307 mOsm/kg (285-295); Sodium 139 mmol/L (136-145)
[2024-11-26 23:00] VITALS: BP 162/59; PULSE 86; RESP 16; O2SAT 92
[2024-11-27] VITALS: BP 149/61; PULSE 92; RESP 16; O2SAT 92
[2024-11-27 00:17] LABS: Bilirubin Urine Negative (Negative); Blood Urine Negative (Negative); Glucose Urine UA Negative (Normal); Ketones Urine Negative (Negative); Leukocyte Esterase Urine 1+ (Negative); Nitrate Urine Negative (Negative); Protein Urine Trace (Negative); Specific Gravity, Urine 1.016 (1.005-1.030); Urine Appearance Clear (CLEAR); Urine Color Yellow (Yellow); Urobilinogen Urine 0.2 mg/dL (Negative); pH Urine 5.5 (5-7)
[2024-11-27 00:20] LABS: Add Urine Microscopic? YES; Bacteria Urine None Seen /hpf; Hyaline Casts Urine 0-4 /lpf; RBC Urine 0-2 /hpf (0-2); Squamous Epithelial Cell Urine 0-5 /hpf (0-5)
[2024-11-27] MEDS: cefTRIAXone 1,000 MG in water for injection-sterile 2.1 ML 999 MG IM (00:58)
[2024-11-27 01:00] VITALS: BP 154/61; PULSE 88; RESP 16; O2SAT 92
[2024-11-27 01:35] VITALS: BP 129/57; PULSE 83; RESP 16; O2SAT 96
== END 2024-11-27 01:38 | disposition home or self-care (01) ==
PROVIDERS: Emergency Provider Emergency Medicine; PCP Physician Assistant
DX: N39.0 Urinary tract infection, site not specified (principal); R11.10 Vomiting, unspecified; Z79.82 Long term (current) use of aspirin; Z79.02 Long term (current) use of antithrombotics/antiplatelets; Z87.891 Personal history of nicotine dependence; E78.5 Hyperlipidemia, unspecified; I25.118 Atherosclerotic heart disease of native coronary artery with other forms of angina pectoris; E11.22 Type 2 diabetes mellitus with diabetic chronic kidney disease; I12.9 Hypertensive chronic kidney disease with stage 1 through stage 4 chronic kidney disease, or unspecified chronic kidney disease; N18.9 Chronic kidney disease, unspecified
CPT/HCPCS: 36415; 80048; 81001; 83605; 83690; 85025; 86140; 87040; 96372; 99284; J0696

== ENCOUNTER → 2024-12-08 14:40 | Outpatient (BNVA) | payer OTHER, MEDICARE, SELFPAY | PROVIDERS: PCP Physician Assistant; Visit Provider Podiatrist Foot & Ankle Surgery | DX: E11.42 Type 2 diabetes mellitus with diabetic polyneuropathy (principal); L60.3 Nail dystrophy; L84 Corns and callosities; G62.9 Polyneuropathy, unspecified; I73.9 Peripheral vascular disease, unspecified; B35.3 Tinea pedis; M62.838 Other muscle spasm | CPT/HCPCS: 11721; 99213 ==

== ENCOUNTER 2024-12-10 12:00 | Oncology outpatient (recurring) (ONCR) | payer MEDICARE, OTHER, SELFPAY ==
[2024-11-26 11:46] LABS: Basophils % 0.3 %; Eosinophils # 0.1 10^3/uL (0.0-0.8); Eosinophils % 1.3 %; Hematocrit 25.8 % (37-53); Lymphocytes # 0.8 10^3/uL (0.8-4.8); Lymphocytes % 19.8 %; Mean Corpuscular Hemoglobin 31.1 pg (27-33); Mean Corpuscular Volume 100.4 fl (82-101); Monocytes # 0.2 10^3/uL (0.2-0.9); Monocytes % 6.1 %; Neutrophils # 2.84 10^3/uL (1.8-7.7); Nucleated Red Blood Cells % 0 %; Platelet Count 189 10^3/cmm (157-399); Red Blood Count 2.57 10^6/uL (3.85-5.65); Red Cell Distribution Width 13.9 % (12.1-15.1); White Blood Count 3.94 10^3/uL (3.29-11.43)
[2024-11-26 12:03] LABS: Alanine Aminotransferase 9 U/L (0-41); Albumin Level 3.8 g/dL (3.5-5.2); Alkaline Phosphatase 38 U/L (40-130); Anion Gap 17.9 (5-19); Aspartate Amino Transferase 15 U/L (0-40); Blood Urea Nitrogen 58 mg/dL (8-23); Calcium 8.5 mg/dL (8.5-10.5); Carbon Dioxide 18 mmol/L (22-29); Chloride 104 mmol/L (98-107); Creatinine Clr Calc Pharmacy 27.1639; Ferritin 15 ng/mL (30-400); Globulin 2.2 g/dL (1.3-4.6); Glucose 175 mg/dL (65-115); Iron 35 ug/dL (59-158); Osmolality Calculated 300 mOsm/kg (285-295); Potassium 4.9 mmol/L (3.5-5.1); Sodium 135 mmol/L (136-145); Total Bilirubin 0.2 mg/dL (0.15-1.2); Total Iron Binding Capacity 388 mcg/dl; Unsaturated Iron Binding 353 ug/dL (112-347)
[2024-11-26 12:47] LABS: Folate Level > 20.0 ng/mL (4.5-32.2)
[2024-11-26] MEDS: sodium chloride 0.9% 250 ML 75 ML IV (13:51)
[2024-11-26] MEDS: iron sucrose 300 MG in sodium chloride 0.9% (100 ml) 100 ML 200 MG IV (13:51)
[2024-11-26 15:35] VITALS: BP 134/78; PULSE 78; RESP 18; TEMP 36.6; O2SAT 98
[2024-11-27] MEDS: diphenhydrAMINE 25 mg Capsule PO (08:43)
[2024-11-27] MEDS: acetaminophen 325 mg Tablet 650 MG PO (08:43)
[2024-11-27 09:30] VITALS: BP 121/53; PULSE 73; TEMP 36.6; O2SAT 92
[2024-11-27 09:45] VITALS: BP 125/52; PULSE 70; TEMP 36.4; O2SAT 90
[2024-11-27 10:00] VITALS: BP 130/55; PULSE 69; RESP 16; TEMP 36.4; O2SAT 90
[2024-11-27 10:30] VITALS: BP 137/53; PULSE 73; RESP 16; TEMP 36.4; O2SAT 93
[2024-11-27 11:13] VITALS: BP 153/68; PULSE 72; RESP 16; TEMP 36.5; O2SAT 95
[2024-11-27 11:31] VITALS: BP 153/68; PULSE 72; RESP 16; TEMP 36.5; O2SAT 95
[2024-12-03 12:22] LABS: Eosinophils % 0.8 %; Hematocrit 28.6 % (37-53); Lymphocytes # 0.9 10^3/uL (0.8-4.8); Lymphocytes % 17.6 %; Mean Corpuscular HGB Conc 31.8 g/dL (30-55); Mean Corpuscular Hemoglobin 31.2 pg (27-33); Mean Corpuscular Volume 97.9 fl (82-101); Mean Platelet Volume 9.4 fL (7.4-10.4); Monocytes # 0.5 10^3/uL (0.2-0.9); Monocytes % 9.6 %; Neutrophils # 3.64 10^3/uL (1.8-7.7); Neutrophils % 71.2 %; Nucleated Red Blood Cells % 0 %; Platelet Count 180 10^3/cmm (157-399); Red Blood Count 2.92 10^6/uL (3.85-5.65); Red Cell Distribution Width 13.8 % (12.1-15.1); White Blood Count 5.11 10^3/uL (3.29-11.43)
[2024-12-03 12:41] LABS: Alanine Aminotransferase 13 U/L (0-41); Albumin Level 3.9 g/dL (3.5-5.2); Alkaline Phosphatase 42 U/L (40-130); Anion Gap 16.1 (5-19); Aspartate Amino Transferase 20 U/L (0-40); Blood Urea Nitrogen 58 mg/dL (8-23); Calcium 8.2 mg/dL (8.5-10.5); Carbon Dioxide 21 mmol/L (22-29); Chloride 103 mmol/L (98-107); Creatinine Clr Calc Pharmacy 25.8031; Globulin 2.3 g/dL (1.3-4.6); Glucose 110 mg/dL (65-115); Lactate Dehydrogenase 156 U/L (135-225); Osmolality Calculated 297 mOsm/kg (285-295); Potassium 5.1 mmol/L (3.5-5.1); Sodium 135 mmol/L (136-145); Total Bilirubin 0.2 mg/dL (0.15-1.2); Total Protein 6.2 g/dL (6.6-8.7)
[2024-12-03] MEDS: iron sucrose 300 MG in sodium chloride 0.9% (100 ml) 100 ML 75 MG IV (13:42)
[2024-12-10 12:52] LABS: Basophils % 0.2 %; Eosinophils % 0.4 %; Hematocrit 28.6 % (37-53); Lymphocytes # 0.8 10^3/uL (0.8-4.8); Lymphocytes % 18.4 %; Mean Corpuscular HGB Conc 31.8 g/dL (30-55); Mean Corpuscular Hemoglobin 32.2 pg (27-33); Mean Corpuscular Volume 101.1 fl (82-101); Mean Platelet Volume 10.2 fL (7.4-10.4); Monocytes # 0.4 10^3/uL (0.2-0.9); Monocytes % 7.8 %; Neutrophils # 3.26 10^3/uL (1.8-7.7); Neutrophils % 72.5 %; Nucleated Red Blood Cells % 0 %; Platelet Count 154 10^3/cmm (157-399); Red Blood Count 2.83 10^6/uL (3.85-5.65); Red Cell Distribution Width 14.4 % (12.1-15.1)
[2024-12-10 13:10] LABS: Alanine Aminotransferase 12 U/L (0-41); Albumin Level 3.8 g/dL (3.5-5.2); Alkaline Phosphatase 45 U/L (40-130); Anion Gap 15.9 (5-19); Aspartate Amino Transferase 21 U/L (0-40); Blood Urea Nitrogen 47 mg/dL (8-23); Calcium 8.4 mg/dL (8.5-10.5); Carbon Dioxide 21 mmol/L (22-29); Chloride 102 mmol/L (98-107); Creatinine Clr Calc Pharmacy 29.9469; Globulin 2.2 g/dL (1.3-4.6); Glucose 115 mg/dL (65-115); Osmolality Calculated 291 mOsm/kg (285-295); Potassium 4.9 mmol/L (3.5-5.1); Sodium 134 mmol/L (136-145); Total Bilirubin 0.2 mg/dL (0.15-1.2)
[2024-12-10] MEDS: iron sucrose 300 MG in sodium chloride 0.9% (100 ml) 100 ML 375 MG IV (13:36)
== END 2024-12-12 23:59 | disposition home or self-care (01) ==
PROVIDERS: Nurse Practitioner; Nurse Practitioner Family; PCP Physician Assistant; Visit Provider Internal Medicine
DX: Z53.9 Procedure and treatment not carried out, unspecified reason; D50.8 Other iron deficiency anemias; Z87.891 Personal history of nicotine dependence; Z79.899 Other long term (current) drug therapy; E11.22 Type 2 diabetes mellitus with diabetic chronic kidney disease; I12.9 Hypertensive chronic kidney disease with stage 1 through stage 4 chronic kidney disease, or unspecified chronic kidney disease; N18.9 Chronic kidney disease, unspecified; D63.1 Anemia in chronic kidney disease
CPT/HCPCS: 36415; 36430; 80053; 82728; 82746; 83010; 83540; 83550; 83615; 85025; 86850; 86900; 86920; 96365; 99213; 99214; J1756; J7050; J9999; P9016

== ENCOUNTER → 2024-12-14 13:50 | Outpatient (BNVA) | payer MEDICARE, OTHER, SELFPAY | PROVIDERS: PCP Physician Assistant; Referring Provider Physician Assistant; Visit Provider Anesthesiology Pain Medicine | DX: M54.9 Dorsalgia, unspecified (principal); M47.816 Spondylosis without myelopathy or radiculopathy, lumbar region | CPT/HCPCS: 99204 ==

== ENCOUNTER 2024-12-24 12:45 | Oncology outpatient (recurring) (ONCR) | payer MEDICARE, OTHER, SELFPAY ==
[2024-12-17 12:26] LABS: Basophils % 0.3 %; Eosinophils % 0.6 %; Hematocrit 29.8 % (37-53); Lymphocytes # 0.6 10^3/uL (0.8-4.8); Lymphocytes % 18.4 %; Mean Corpuscular HGB Conc 31.5 g/dL (30-55); Mean Corpuscular Hemoglobin 31.9 pg (27-33); Mean Platelet Volume 9.4 fL (7.4-10.4); Monocytes # 0.2 10^3/uL (0.2-0.9); Neutrophils # 2.49 10^3/uL (1.8-7.7); Neutrophils % 72.8 %; Nucleated Red Blood Cells % 0 %; Platelet Count 162 10^3/cmm (157-399); Red Blood Count 2.95 10^6/uL (3.85-5.65); Red Cell Distribution Width 15.1 % (12.1-15.1); White Blood Count 3.42 10^3/uL (3.29-11.43)
[2024-12-17 12:44] LABS: Alanine Aminotransferase 12 U/L (0-41); Albumin Level 3.8 g/dL (3.5-5.2); Alkaline Phosphatase 44 U/L (40-130); Anion Gap 16.2 (5-19); Aspartate Amino Transferase 18 U/L (0-40); Blood Urea Nitrogen 50 mg/dL (8-23); Calcium 8.5 mg/dL (8.5-10.5); Carbon Dioxide 18 mmol/L (22-29); Chloride 107 mmol/L (98-107); Ferritin 403 ng/mL (30-400); Glucose 157 mg/dL (65-115); Iron 89 ug/dL (59-158); Osmolality Calculated 299 mOsm/kg (285-295); Percent Saturation 32.3 % (20-50); Potassium 5.2 mmol/L (3.5-5.1); Sodium 136 mmol/L (136-145); Total Bilirubin 0.3 mg/dL (0.15-1.2); Total Iron Binding Capacity 275 mcg/dl; Total Protein 5.8 g/dL (6.6-8.7); Unsaturated Iron Binding 186 ug/dL (112-347)
[2024-12-17 13:29] LABS: Folate Level > 20.0 ng/mL (4.5-32.2)
[2024-12-17] MEDS: iron sucrose 200 MG in sodium chloride 0.9% (100 ml) 100 ML IV (14:33)
[2024-12-18 14:59] LABS: KAPPA LIGHT CHAIN, FREE, SERUM 38.1 mg/L (3.3-19.4); KAPPA/LAMBDA LIGHT CHAINS FREE 1.34 (0.26-1.65); LAMBDA LIGHT CHAIN, FREE, SERU 28.4 mg/L (5.7-26.3)
[2024-12-22 15:05] LABS: Erythropoietin 14.4 mIU/mL (2.6-18.5)
[2024-12-23 13:22] LABS: Basophils % 0.2 %; Eosinophils % 0.9 %; Hematocrit 30.4 % (37-53); Lymphocytes # 0.9 10^3/uL (0.8-4.8); Mean Corpuscular HGB Conc 31.3 g/dL (30-55); Mean Corpuscular Hemoglobin 31.7 pg (27-33); Mean Corpuscular Volume 101.3 fl (82-101); Mean Platelet Volume 9.9 fL (7.4-10.4); Monocytes # 0.4 10^3/uL (0.2-0.9); Monocytes % 8.2 %; Neutrophils # 3.07 10^3/uL (1.8-7.7); Nucleated Red Blood Cells % 0 %; Platelet Count 143 10^3/cmm (157-399); Red Cell Distribution Width 15.3 % (12.1-15.1); White Blood Count 4.39 10^3/uL (3.29-11.43)
[2024-12-23 13:38] LABS: Alanine Aminotransferase 12 U/L (0-41); Alkaline Phosphatase 50 U/L (40-130); Anion Gap 15.2 (5-19); Aspartate Amino Transferase 19 U/L (0-40); Blood Urea Nitrogen 48 mg/dL (8-23); Calcium 8.5 mg/dL (8.5-10.5); Carbon Dioxide 20 mmol/L (22-29); Chloride 104 mmol/L (98-107); Creatinine Clr Calc Pharmacy 26.4926; Globulin 2.1 g/dL (1.3-4.6); Glucose 103 mg/dL (65-115); Osmolality Calculated 291 mOsm/kg (285-295); Potassium 5.2 mmol/L (3.5-5.1); Sodium 134 mmol/L (136-145); Total Bilirubin 0.2 mg/dL (0.15-1.2); Total Protein 6.1 g/dL (6.6-8.7)
[2024-12-23 14:08] LABS: Ferritin 473 ng/mL (30-400); Iron 106 ug/dL (59-158); Percent Saturation 40.7 % (20-50); Total Iron Binding Capacity 260 mcg/dl; Unsaturated Iron Binding 154 ug/dL (112-347)
[2024-12-23 14:55] LABS: Folate Level > 20.0 ng/mL (4.5-32.2)
[2024-12-24] MEDS: iron sucrose 300 MG in sodium chloride 0.9% (100 ml) 100 ML 230 MG IV (14:46)
[2024-12-24 15:15] LABS: KAPPA LIGHT CHAIN, FREE, SERUM 40.9 mg/L (3.3-19.4); KAPPA/LAMBDA LIGHT CHAINS FREE 1.33 (0.26-1.65); LAMBDA LIGHT CHAIN, FREE, SERU 30.7 mg/L (5.7-26.3)
[2024-12-29 14:48] LABS: Erythropoietin 11.5 mIU/mL (2.6-18.5)
== END 2025-01-11 23:59 | disposition home or self-care (01) ==
PROVIDERS: PCP Physician Assistant; Visit Provider Internal Medicine
DX: Z53.9 Procedure and treatment not carried out, unspecified reason (principal); D50.8 Other iron deficiency anemias; R03.0 Elevated blood-pressure reading, without diagnosis of hypertension; N18.9 Chronic kidney disease, unspecified; Z79.899 Other long term (current) drug therapy
CPT/HCPCS: 36415; 80053; 82668; 82728; 82746; 83010; 83540; 83550; 83883; 85025; 96365; 99213; 99214; J1756

== ENCOUNTER → 2025-01-18 13:23 | Outpatient (BNVA) | payer MEDICARE, OTHER, SELFPAY | PROVIDERS: PCP Physician Assistant; Visit Provider Anesthesiology Pain Medicine | DX: M54.9 Dorsalgia, unspecified (principal); M47.816 Spondylosis without myelopathy or radiculopathy, lumbar region | CPT/HCPCS: 99214 ==